=== PATIENT | male | born 1945 | race Caucasian/White ===

== ENCOUNTER 2016-06-13 15:25 | Inpatient (IN) ==
[2016-06-13] MEDS ORDERED: *HR* Morphine 2 MG/ML SYRINGE IVP ONE (15:53)
[2016-06-13 16:21] LABS: Basophils % 0.2 %; Hematocrit 34.4 % (37.5-50.1); Hemoglobin 11.6 g/dL (12.9-16.9); Immature Granulocytes % 0.4 % (0-4); Lymphocytes # 0.6 K/mcL (0.6-4.6); Lymphocytes % 5.3 %; Mean Corpuscular HGB Conc 33.7 g/dL (31.6-35.5); Mean Corpuscular Hemoglobin 29.6 pg (28.0-33.3); Mean Corpuscular Volume 87.8 fL (83.0-100.0); Mean Platelet Volume 11.2 fL (9.4-12.4); Monocytes # 0.5 K/mcL (0.0-1.3); Monocytes % 4.4 %; Neutrophils # 10.9 K/mcL (1.6-8.9); Platelet Count 191 K/mcL (140-400); Red Blood Count 3.92 M/mcL (4.19-5.50); Red Cell Distribution Width 12.9 % (11.5-14.5); Segmented Neutrophils % 89.7 %
[2016-06-13 16:26] LABS: INR 1.1; Prothrombin Time 11.8 Seconds (9.4-12.1)
[2016-06-13 16:35] LABS: Albumin 3.9 g/dL (3.5-5.0); Bilirubin,Direct 0.4 mg/dL (0.0-0.5); Bilirubin,Indirect 0.3 mg/dL (0.0-1.2); Bilirubin,Total 0.7 mg/dL (0.2-1.2); Calcium 9.7 mg/dL (8.6-10.8); Globulin 3.9 g/dL (2.4-3.5); Potassium 3.6 mEq/L (3.5-4.5); Total Protein 7.8 g/dL (6.0-8.3)
[2016-06-13] MEDS: 0.9 % Sodium Chloride 1,000 ML IVC SCH (16:41)
[2016-06-13] MEDS ORDERED: Gabapentin 300 MG CAPSULE PO ONE (17:20)
[2016-06-13] MEDS ORDERED: *HR* Heparin 5,000 UNIT/ML VIAL IVP PRN ×2 (19:45→19:49)
[2016-06-13] MEDS ORDERED: *HR* Heparin 5,000 UNIT/ML VIAL IVP ONE ×2 (19:45→19:49)
[2016-06-13] MEDS ORDERED: Heparin 25,000 UNIT/500 ML D5W 25,000 UNIT/500 ML MLS IVC SCH (19:45)
[2016-06-13] MEDS ORDERED: Nitroglycerin 1 INCH/GM PACKET TP ONE (19:47)
[2016-06-13] MEDS ORDERED: Aspirin 81 MG TAB.CHEW PO ONE (19:52)
--- NOTE | 2016-06-13 20:29 | Emergency Department Note ---
Disposition Clinical Impression: Non-STEMI (non-ST elevated myocardial infarction), Acute kidney injury Disposition: Admitted As Inpatient Condition: Critical [facility] - Forms: Work/School Release, ED Satisfaction Letter Abdominal Pain HPI - General Chief Complaint: ED Abdominal Pain Stated Complaint: abdominal pain Time Seen by Provider: 06/13/16 15:29 Source: patient Nursing Notes Reviewed: Yes Vital Signs Reviewed: Yes - History of Present Illness HPI Narrative: 71-year-old male presents from the [place] with concern for acute cholecystitis. Apparently he has had several days of abdominal discomfort and ultimately went to the [place] complaining of kidney pain. He also had nonspecific chest pain. He does not recall recent cardiac catheterization or stress testing. He had basic labs done at the [place] which showed no evidence of transaminitis, elevated bilirubin or leukocytosis. He was dilated with cardiac biomarkers which are normal. A CT scan of his abdomen was obtained which showed nonspecific gallbladder wall disease and he was sent here for further evaluation. Prior to coming here 1 episode of vomiting, nausea, diaphoresis. Pain Scale: 0 - Related Data Home Medications Medication Instructions Recorded Confirmed Acetaminophen [Tylenol] 325 mg PO QID PRN 06/13/16 06/13/16 Carbidopa/Levodopa [Sinemet 5 each PO HS 06/13/16 06/13/16 10] CloNIDine HCl 0.1 mg PO BID 06/13/16 06/13/16 Escitalopram Oxalate 5 mg PO QAM 06/13/16 06/13/16 Insulin Regular Human [HumuLIN R] 5 unit SQ QDPC 06/13/16 06/13/16 Lidocaine Patch [Lidoderm 5% patch] 1 each TP DAILY 06/13/16 06/13/16 Omeprazole [PriLOSEC] 20 mg PO BIDAC 06/13/16 06/13/16 Propylene Glycol/Peg 400 [Systane 1 drop BOTH EYES QID 06/13/16 06/13/16 0.3-0.4% Eye Drops] Saliva Substitute Combo No.3 1 spray MM BID PRN 06/13/16 06/13/16 [Aquoral] Simvastatin [Zocor] 40 mg PO HS 06/13/16 06/13/16 Terazosin HCl 2 mg PO HS 06/13/16 06/13/16 Trazodone HCl 200 mg PO HS PRN 06/13/16 06/13/16 Allergies Allergy/AdvReac Type Severity Reaction Status Date / Time Amoxicillin Allergy Rash Verified 06/13/16 15:40 gabapentin AdvReac See Verified 06/13/16 15:40 Comments insulin glargine AdvReac See Verified 06/13/16 15:40 [From Lantus] Comments Methadone AdvReac Nausea Verified 06/13/16 15:40 All systems ED: reviewed and negative except as stated. Abdominal Pain PMH - Past Medical History Medical history: Reports: diabetes, hyperlipidemia, renal disease, thyroid disease, other Male Surgical History: Reports: other Psychiatric history: Reports: anxiety, depression, PTSD - Social History Smoking status: Never smoker Alcohol use: Reports: recent Drug use: Reports: none Physical Exam Alert and oriented in no acute distress Meta warm and dry TMs clear bilaterally, extraocular muscle movements are normal, scleral icterus is absent Oropharynx is clear mucous members are moist Cardiovascular exam shows no murmur, rub, gallop Pulmonary exam shows clear lung sounds bilaterally no rales, rhonchi, wheezing Abdominal exam shows a soft and nontender abdomen Extremities are well perfused without clubbing, cyanosis, edema Neurologic exam shows cranial nerves II through XII grossly intact without any focal deficit - General Limitations: no limitations General appearance: alert, in no apparent distress Course Vital Signs Temperature 99.4 F 06/13/16 15:30 Pulse Rate 96 06/13/16 15:30 Respiratory Rate 16 06/13/16 15:30 Blood Pressure 139/90 06/13/16 15:30 O2 Sat by Pulse Oximetry 97 06/13/16 15:30 Temperature 99.4 F 06/13/16 15:30 Pulse Rate 83 06/13/16 19:48 Respiratory Rate 18 06/13/16 19:48 Blood Pressure 161/82 06/13/16 19:48 O2 Sat by Pulse Oximetry 97 06/13/16 19:48 Oxygen Delivery Oxygen Delivery Room Air Abdominal Pain - MDM Narrative Medical decision making narrative: 71-year-old male with concern for acute cholecystitis. Cardiac biomarkers were negative at the sending facility. He does have elevation of his cardiac biomarkers here and concurrently with acute kidney injury. I do suspect this is possible and STEMI given that his cardiac biomarkers were normal 3 hours ago. He is pending a repeat troponin at this time. I did ultrasound his gallbladder which shows no evidence of acute cholecystitis. At this point I would heparinize him, and initiated therapy with aspirin. I do not feel he has a surgical abdomen at this time. I did repeat his EKG twice which shows nonspecific changes. No acute ST segment changes. He was given nitroglycerin, heparin, aspirin, IV fluids for acute kidney injury. Went to admit for diagnosis of an STEMI. - Medical Records Medical records reviewed: Yes I reviewed the patient's medical records. - Lab Data Lab results reviewed: Yes I reviewed the patient's lab results. Result diagrams: 06/13/16 16:11 06/13/16 16:11 Lab Results 06/13/16 06/13/16 06/13/16 Range/Units 16:11 16:11 16:11 WBC 12.1 H (4.3-11.1) K/mcL RBC 3.92 L (4.19-5.50) M/mcL Hgb 11.6 L (12.9-16.9) g/dL Hct 34.4 L (37.5-50.1) % MCV 87.8 (83.0-100.0) fL MCH 29.6 (28.0-33.3) pg MCHC 33.7 (31.6-35.5) g/dL RDW 12.9 (11.5-14.5) % Plt Count 191 (140-400) K/mcL MPV 11.2 (9.4-12.4) fL Immature Gran % 0.4 (0-4) % Seg Neutrophils % 89.7 % Lymphocytes % 5.3 % Monocytes % 4.4 % Eosinophils % 0.0 % Basophils % 0.2 % Neutrophils # 10.9 H (1.6-8.9) K/mcL Lymphocytes # 0.6 (0.6-4.6) K/mcL Monocytes # 0.5 (0.0-1.3) K/mcL Eosinophils # 0.0 (0.0-0.6) K/mcL Basophils # 0.0 (0.0-0.2) K/mcL Immature Plt Fraction 8.0 H (1.1-6.1) % PT 11.8 (9.4-12.1) Seconds INR 1.1 Sodium 135 L (136-145) mEq/L Potassium 3.6 (3.5-4.5) mEq/L Chloride 93 L (98-109) mEq/L Carbon Dioxide 29 (19-29) mEq/L BUN 21 (8-26) mg/dL Creatinine 1.63 H (0.72-1.25) mg/dL Est GFR ( Amer) 51 L (> 60) Est GFR (Non-Af Amer) 42 L (> 60) BUN/Creatinine Ratio 13 (6-26) Glucose 291 H (70-99) mg/dL Calculated Osmolality 294 (280-300) Lactic Acid (0.5-2.2) mmol/L Calcium 9.7 (8.6-10.8) mg/dL Total Bilirubin 0.7 (0.2-1.2) mg/dL Direct Bilirubin 0.4 (0.0-0.5) mg/dL Indirect Bilirubin 0.3 (0.0-1.2) mg/dL AST 13 (5-34) Units/L ALT 14 (0-55) Units/L Alkaline Phosphatase 85 (38-126) Units/L Troponin I (0-0.03) ng/mL Serum Total Protein 7.8 (6.0-8.3) g/dL Albumin 3.9 (3.5-5.0) g/dL Globulin 3.9 H (2.4-3.5) g/dL Albumin/Globulin Ratio 1.0 L (1.1-2.2) Amylase 87 (25-125) Units/L Lipase 41 (8-78) Units/L 06/13/16 06/13/16 Range/Units 16:11 16:11 WBC (4.3-11.1) K/mcL RBC (4.19-5.50) M/mcL Hgb (12.9-16.9) g/dL Hct (37.5-50.1) % MCV (83.0-100.0) fL MCH (28.0-33.3) pg MCHC (31.6-35.5) g/dL RDW (11.5-14.5) % Plt Count (140-400) K/mcL MPV (9.4-12.4) fL Immature Gran % (0-4) % Seg Neutrophils % % Lymphocytes % % Monocytes % % Eosinophils % % Basophils % % Neutrophils # (1.6-8.9) K/mcL Lymphocytes # (0.6-4.6) K/mcL Monocytes # (0.0-1.3) K/mcL Eosinophils # (0.0-0.6) K/mcL Basophils # (0.0-0.2) K/mcL Immature Plt Fraction (1.1-6.1) % PT (9.4-12.1) Seconds INR Sodium (136-145) mEq/L Potassium (3.5-4.5) mEq/L Chloride (98-109) mEq/L Carbon Dioxide (19-29) mEq/L BUN (8-26) mg/dL Creatinine (0.72-1.25) mg/dL Est GFR ( Amer) (> 60) Est GFR (Non-Af Amer) (> 60) BUN/Creatinine Ratio (6-26) Glucose (70-99) mg/dL Calculated Osmolality (280-300) Lactic Acid 1.6 (0.5-2.2) mmol/L Calcium (8.6-10.8) mg/dL Total Bilirubin (0.2-1.2) mg/dL Direct Bilirubin (0.0-0.5) mg/dL Indirect Bilirubin (0.0-1.2) mg/dL AST (5-34) Units/L ALT (0-55) Units/L Alkaline Phosphatase (38-126) Units/L Troponin I 0.05 H* (0-0.03) ng/mL Serum Total Protein (6.0-8.3) g/dL Albumin (3.5-5.0) g/dL Globulin (2.4-3.5) g/dL Albumin/Globulin Ratio (1.1-2.2) Amylase (25-125) Units/L Lipase (8-78) Units/L - EKG Data EKG attestation: Yes I reviewed and interpreted this EKG. EKG results narrative: EKG 1 shows normal sinus rhythm, normal axis, normal intervals, nonspecific ST segment changes EKG to shows normal sinus rhythm, normal intervals, normal axis, nonsignificant ST segment changes. No acute change from EKG one Critical Care Time Critical Care Time: Yes Total Critical Care Time: 31 Attestation: I think greater than 31 minutes caring for this acutely ill patient with a N STEMI. He will be admitted in the care of the hospitalist in critical condition and required intervention with both heparin, nitroglycerin, ongoing resuscitation for acute coronary syndrome
[2016-06-13 20:34] LABS: Hematocrit 31.6 % (37.5-50.1); Hemoglobin 10.9 g/dL (12.9-16.9); Mean Corpuscular HGB Conc 34.5 g/dL (31.6-35.5); Mean Corpuscular Hemoglobin 30.4 pg (28.0-33.3); Mean Platelet Volume 11.4 fL (9.4-12.4); Platelet Count 161 K/mcL (140-400); Red Blood Count 3.59 M/mcL (4.19-5.50)
[2016-06-13 20:36] LABS: Bilirubin,Urine Small (Negative); Blood,Urine Negative (Negative); Clarity,Urine Clear (Clear); Color,Urine Yellow (Yellow); Glucose,Urine (UA) >=1000 mg/dL (Normal); Ketones,Urine Trace mg/dL (Negative); Leukocyte Esterase,Urine Negative (Negative); Nitrite,Urine Negative (Negative); PH,Urine 6.5 pH Units (5.0-8.0); Protein,Urine 100 mg/dL (Neg-Trace); Specific Gravity,Urine 1.022 (1.010-1.025); Urobilinogen,Urine Normal (Normal)
[2016-06-13 20:38] LABS: INR 1.2; Prothrombin Time 12.5 Seconds (9.4-12.1)
[2016-06-13 20:40] LABS: Bacteria,Urine None Seen per hpf (None-Few); Hyaline Casts,Urine None Seen per lpf (None-Few); Squamous Epithelial Cell,Urine Many per lpf (None-Few); WBC,Urine 0-3 per hpf (0-3)
[2016-06-13 20:40] LABS: Activated Partial Thrombo Time 26.9 Seconds (26.0-36.0)
[2016-06-14] MEDS ORDERED: Oxymetazoline Nasal SPRAY BOTTLE NS PRN (00:41)
[2016-06-14] MEDS ORDERED: Acetaminophen 325 MG TABLET PO PRN (01:32)
[2016-06-14] MEDS ORDERED: traZODone 50 MG TABLET PO PRN (01:32)
[2016-06-14] MEDS ORDERED: Saliva Stimulant 100ml BOTTLE MM PRN (01:32)
[2016-06-14] MEDS ORDERED: *HR* Dextrose 50 % in Water (Syg) 50 ML SYRINGE IVP PRN (01:34)
[2016-06-14] MEDS ORDERED: D5% in Water 1,000 ML IV PRN (01:34)
[2016-06-14] MEDS ORDERED: Dextrose Gel 15 GM PO PRN ×2 (01:34)
[2016-06-14] MEDS ORDERED: *HR* Morphine 2 MG/ML SYRINGE IVP PRN (01:35)
[2016-06-14] MEDS ORDERED: Naloxone 0.4 MG/ML INJ IVP PRN (01:35)
--- NOTE | 2016-06-14 02:06 | Internal Med History&Physical ---
Date of Encounter: 06/14/16 Time of Encounter: 00:30 Assessment and Plan (1) Elevated troponin Current visit: Yes Status: Acute Patient has atypical chest pain. EKG is negative. Will consult senior maintenance mechanic for further advice. (2) Gall bladder disease Current visit: Yes Status: Acute Based on the imaging, There is concern for cholecystitis versus cholelithiasis versus polyp. Surgical consultation (3) Pancreatic atrophy Current visit: Yes Status: Acute Radiologist recommends gastroenterology consultation (4) CKD (chronic kidney disease) stage 3, GFR 30-59 ml/min Current visit: Yes Status: Acute Monitor renal function. Avoid nephrotoxic (5) Diabetes mellitus Current visit: Yes Status: Acute Start on sliding scale insulin Qualifiers: Diabetes mellitus type: type 2 Diabetes mellitus complication status: with hyperglycemia Diabetes mellitus nursing home insulin use: unspecified nursing home insulin use status Qualified Code(s): E11.65 - Type 2 diabetes mellitus with hyperglycemia (6) Restless leg syndrome Current visit: Yes Status: Chronic Continue his home medications Internal Medicine - H&P: HPI Chief complaint: Upper abdominal pain Admitted From: Home Plans for Post Hospital Care: Home History of present illness: Mr. Wagoner is a 71 year old male with past medical history significant for diabetes mellitus, see Ca stage III, BPH, restless legs, chronic pain syndrome, pulmonary nodule, vascular dementia, secondary hyperparathyroidism of renal origin, hyperlipidemia, lumbar spinal stenosis. He is a patient of [facility]. He apparently presented to with upper abdominal pain / chest pain. CT scan of the abdomen there showed cholelithiasis with mild gallbladder wall thickening and some stranding surrounding the gallbladder, consistent with cholecystitis. His troponin there was negative. He was transferred to [facility] for further evaluation. Troponin here is 0.04 in the ER. Ultrasound scan of the gallbladder done in this hospital showed filling defect in the gallbladder fundus, which does not have typical characteristics of mobile stone. A polyp mass should be considered. On my evaluation, patient was very uncooperative and was initially did not want to see me. However after discussing with him further, he was able to give some details. Reports pain in the right and left upper quadrant region. Vague pain with no radiation. Denies significant chest pain. No nausea or vomiting. No fever or chills. CT scan of the abdomen and pelvis done in [facility] reported: Cholelithiasis with mild gallbladder wall thickening and some stranding surrounding the gallbladder, consistent with cholecystitis. Diffuse atrophy of the pancreatic body at the dilatation of the pancreatic duct. This could be due to distal radiolucent stone, stricture or tumor. GI consultation and ERCP is recommended. Colonic diverticulosis. Prostatitic enlargement and heterogenicity. Bilateral Inguinal hernias. Left-sided L5 spondylolisthesis. CXR reported small left pleural fluid collection. X-ray of lumbar spine reported multilevel degenerative disc disease and facet joint arthritis . Past Med Surg Social Fam HX - Past Medical History Medical history: diabetes, hyperlipidemia, renal disease, thyroid disease, other Psychiatric history: anxiety, depression, PTSD - Social History Smoking Status: Never smoker Smokeless Tobacco Status: No Alcohol use: recent Drug use: none Internal Medicine - H&P: Meds Acetaminophen [Tylenol] 325 mg PO QID PRN 06/13/16 [History] Carbidopa/Levodopa 10/100 [Sinemet 10/100] 5 each PO HS 06/13/16 [History] CloNIDine HCl 0.1 mg PO BID 06/13/16 [History] Escitalopram Oxalate 5 mg PO QAM 06/13/16 [History] Insulin Regular Human [HumuLIN R] 5 unit SQ QDPC 06/13/16 [History] Lidocaine Patch [Lidoderm 5% patch] 1 each TP DAILY 06/13/16 [History] Omeprazole [PriLOSEC] 20 mg PO BIDAC 06/13/16 [History] Propylene Glycol/Peg 400 [Systane 0.3-0.4% Eye Drops] 1 drop BOTH EYES QID 06/13 [History] Saliva Substitute Combo No.3 [Aquoral] 1 spray MM BID PRN 06/13/16 [History] Simvastatin [Zocor] 40 mg PO HS 06/13/16 [History] Terazosin HCl 2 mg PO HS 06/13/16 [History] Trazodone HCl 200 mg PO HS PRN 06/13/16 [History] Allergies Amoxicillin Allergy (Verified 06/13/16 15:40) Rash gabapentin Adverse Reaction (Verified 06/13/16 15:40) See Comments dementia insulin glargine [From Lantus] Adverse Reaction (Verified 06/13/16 15:40) See Comments joint pain Methadone Adverse Reaction (Verified 06/13/16 15:40) Nausea All Systems PM: A 10-system review of systems was performed and is negative for pertinent findings except as documented above in the HPI. - Constitutional Vitals: Temp Pulse Resp BP Pulse Ox 98.5 F 79 18 154/58 96 06/14/16 01:01 06/14/16 01:01 06/14/16 01:01 06/14/16 01:01 06/14/16 01:01 Exam: General: Not in acute distress at the time of my evaluation HEENT: Oral mucosa is moist. No conjunctival palor or scleral icterus Neck: No obvious neck swellings Lungs: Clear to auscultation Cardiac: Regular rate and rhythm. No significant murmurs Abdomen: Soft, non tender. Bowel sounds present Genitourinary: No arredondo catheter Neurological: Alert and oriented. No gross localizing deficits Psych: No delusions or hallucinations Extremities: Bilateral leg edema noted Skin: No generalized rash Internal Med - H&P Results - Labs CBC & Chem 7: 06/13/16 20:12 06/13/16 16:11 - EKG Data EKG comments: Sinus rhythm with no acute ST-T changes 06/14/16 05:14 - Impressions ITS Impressions Gallbladder Ultrasound 06/13/16 15:52 IMPRESSION: 1. Filling defect in the gallbladder fundus which does not have the typical characteristics of movable stone. A polyp or mass should be considered. 2. No evidence of biliary disease. No evidence of liver disease. Incidental renal cyst. D/ / 06/13/2016 19:45:59 Farrah Summers MD / [email or web address] Interpreting Provider: Farrah Summers MD [facility] reported: Cholelithiasis with mild gallbladder wall thickening and some stranding surrounding the gallbladder, consistent with cholecystitis. Diffuse atrophy of the pancreatic body at the dilatation of the pancreatic duct. This could be due to distal radiolucent stone, stricture or tumor. GI consultation and ERCP is recommended. Colonic diverticulosis. Prostatitic enlargement and heterogenicity. Bilateral Inguinal hernias. Left-sided L5 spondylolisthesis. CXR reported small left pleural fluid collection. X-ray of lumbar spine reported multilevel degenerative disc disease and facet joint arthritis
[2016-06-14 02:20] LABS: Chol/HDL Ratio 2.4 (0-4.9)
[2016-06-14 06:03] LABS: Calcium 9.6 mg/dL (8.6-10.8); Potassium 3.5 mEq/L (3.5-4.5)
[2016-06-14] MEDS: 0.9 % Sodium Chloride 1,000 ML IVC SCH ×2 (07:42→12:25)
[2016-06-14] MEDS: Insulin LISPRO 300 UNITS/3 ML VIAL SQ SCH ×4 (07:43→18:17)
[2016-06-14] MEDS: cloNIDine HCl 0.1 MG TABLET PO SCH ×2 (08:50→21:10)
[2016-06-14] MEDS: SYSTANE OP SCH ×3 (08:56→17:25)
--- NOTE | 2016-06-14 09:15 | Cardiology Consult Note ---
<Santy Hdez G - Last Filed: 06/14/16 09:40> Date of Encounter: 06/14/16 Assessment and Plan Discussion w patient/family: The assessment and plan as outlined above was discussed with the patient and/or family members who expressed understanding and agreement. All questions were answered. Thank you for involving us in the care of your patient. Please call with any questions. History of Present Illness History of present illness: Mr. Wagoner is a 71 year old male Medications and Allergies Acetaminophen [Tylenol] 325 mg PO QID PRN 06/13/16 [History] Carbidopa/Levodopa 10 [Sinemet 10] 5 each PO HS 06/13/16 [History] CloNIDine HCl 0.1 mg PO BID 06/13/16 [History] Escitalopram Oxalate 5 mg PO QAM 06/13/16 [History] Insulin Regular Human [HumuLIN R] 5 unit SQ QDPC 06/13/16 [History] Lidocaine Patch [Lidoderm 5% patch] 1 each TP DAILY 06/13/16 [History] Omeprazole [PriLOSEC] 20 mg PO BIDAC 06/13/16 [History] Propylene Glycol/Peg 400 [Systane 0.3-0.4% Eye Drops] 1 drop BOTH EYES QID 06/13 [History] Saliva Substitute Combo No.3 [Aquoral] 1 spray MM BID PRN 06/13/16 [History] Simvastatin [Zocor] 40 mg PO HS 06/13/16 [History] Terazosin HCl 2 mg PO HS 06/13/16 [History] Trazodone HCl 200 mg PO HS PRN 06/13/16 [History] Allergies Amoxicillin Allergy (Verified 06/13/16 15:40) Rash gabapentin Adverse Reaction (Verified 06/13/16 15:40) See Comments dementia insulin glargine [From Lantus] Adverse Reaction (Verified 06/13/16 15:40) See Comments joint pain Methadone Adverse Reaction (Verified 06/13/16 15:40) Nausea All Systems Review: A 10-system review of systems was performed and is negative for pertinent findings except as documented above in the HPI. Physical Examination Vital Signs, Last 4 Hours Temp Pulse Resp BP Pulse Ox 06/14/16 07:16 98.2 F 88 18 186/78 94 L Results 06/13/16 20:12 06/14/16 01:43 Lab Results 06/14/16 06/14/16 06/14/16 01:43 01:43 07:32 APTT 54.7 H D Sodium 135 L Potassium 3.5 Chloride 94 L Carbon Dioxide 26 BUN 23 Creatinine 1.65 H Glucose 308 H Calcium 9.6 Troponin I 0.06 H* 06/14/16 07:54 APTT Sodium Potassium Chloride Carbon Dioxide BUN Creatinine Glucose Calcium Troponin I 0.06 H* Consult Discharge Plan - Plan [facility]errals: [facility] [Primary Care Provider[facility] - - Attending Attestation For this encounter, I have reviewed the BALLOON TESTER or PA documentation, treatment plan, and medical decision making; and I have had face to face time with this patient. Pt here with possible cholecystitis denies any cp , sob, pnd no prior cardiac history VSS JVD: 6 cm Chest : clear CVS RRR , no murmur gallops , rubs EKG: no acute changes reviewed by me Trop : mildly elevated Plan; will do stress test prior to clearing for surgery repeat EKG in am Thanks <Naresh Faye - Last Filed: 06/14/16 09:47> Date of Encounter: 06/14/16 Time of Encounter: 09:00 Assessment and Plan (1) Elevated troponin Current Visit: Yes Status: Acute Mild troponin elevation, 0.05, 0.04, 0.06. A dynamic and not diagnostic of ACS. TTE 2013- EF 55-60%, Mild diastolic dysfunction. No significant valvular disease. EKG- NSR with no ST changes, HR 82 bpm. Pt may require surgical intervention for acute cholecystitis. There is report of him having chest pain. He denies chest pain to me at this time. Recommend lexiscan stress test for further evaluation. (2) Hypertension Current Visit: Yes Status: Acute Uncontrolled hypertension. Add norvasc. Qualifiers: Hypertension type: essential hypertension Qualified Code(s): I10 - Essential (primary) hypertension (3) Gall bladder disease Current Visit: Yes Status: Acute Surgery consulted. (4) Tachycardia Current Visit: Yes Status: Acute Pt seen to have tachy-arrhythmia on telemetry with HR up to [address] Hdez, sinus tachycardia. Continue to monitor telemetry. Discussion w patient/family: The assessment and plan as outlined above was discussed with the patient and/or family members who expressed understanding and agreement. All questions were answered. Thank you for involving us in the care of your patient. Please call with any questions. History of Present Illness Consult date: 06/14/16 Consult reason: CHF Chief complaint: SOB, orthopnea, fall two days ago History of present illness: Mr. Wagoner is a 71 year old male who presented to the [place] with abdominal discomfort and vomiting on monday. 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 He denies recurrent nausea and vomiting. Continues to have abdominal tenderness. He denies chest pain or SOB. A CT scan at the [facility] revealed cholelithiasis and possible cholecystitis. He was sent to [facility] for urgent surgery evaluation. Cardiology consulted for elevated troponin. Past medical history includes hypertension, HLD, DM type II, Carotid artery disease, and vascular dementia. He denies chest pain or SOB. Denies palpitations. Denies orthopnea, PND. or edema. Past Med Surg Social Fam HX - Past Medical History Medical history: diabetes, hyperlipidemia, renal disease, thyroid disease, other Psychiatric history: anxiety, depression, PTSD - Social History Smoking Status: Never smoker Smokeless Tobacco Status: No Alcohol use: recent Drug use: none All Systems Review: A 10-system review of systems was performed and is negative for pertinent findings except as documented above in the HPI. Physical Examination Vital Signs, Last 4 Hours Temp Pulse Resp BP Pulse Ox 06/14/16 07:16 98.2 F 88 18 186/78 94 L General: Conversant, No Apparent Distress HEENT: Atraumatic, Normocephaly, Mucus Membranes Moist Neck: No JVD, Normal carotid pulses Cardiac: Reg Rate and Rhythm, Normal S1 and S2, No Murmur Lungs: Normal Breath Sounds, No Wheeze, Rales, Rhonchi Neuro: Alert and responsive, No focal deficits noted Abdomen: Soft, Other (RUQ with reproducible pain.) Skin: No rashes noted on visualized skin Musculoskeletal: No Chest Wall Tenderness Extremities: No Clubbing, No Cyanosis, No Edema, Normal Pulses Results 06/13/16 20:12 06/14/16 01:43 Lab Results 06/14/16 06/14/16 06/14/16 01:43 01:43 07:32 APTT 54.7 H D Sodium 135 L Potassium 3.5 Chloride 94 L Carbon Dioxide 26 BUN 23 Creatinine 1.65 H Glucose 308 H Calcium 9.6 Troponin I 0.06 H* 06/14/16 07:54 APTT Sodium Potassium Chloride Carbon Dioxide BUN Creatinine Glucose Calcium Troponin I 0.06 H* Gallbladder Ultrasound 06/13/16 15:52 IMPRESSION: 1. Filling defect in the gallbladder fundus which does not have the typical characteristics of movable stone. A polyp or mass should be considered. 2. No evidence of biliary disease. No evidence of liver disease. Incidental renal cyst. D/ / 06/13/2016 19:45:59 Farrah Summers MD / [email or web address] Interpreting Provider: Farrah Summers MD - small pleural effusion. - Imaging and Cardiology Echo: report reviewed (2013-EF 55-60%, mild diastolic dysfunction, no significant valvular disease.) - EKG Interpretation EKG results cardiology: personally reviewed (SR, no acute ST changes, HR 82 bpm. ), other (Telemetry review shows NSR to ST. Avg HR 93 bpm.)
--- NOTE | 2016-06-14 12:01 | Gastroenterology Consult Note ---
<Anil Laureano - Last Filed: 06/14/16 11:58> Date of Encounter: 06/14/16 Time of Encounter: 11:10 - Assessment and plan (1) Pancreatic atrophy Current Visit: Yes Status: Acute Assessment and plan: CT A/P showed diffuse atrophy of the pancreatic body with dilation of the pancreatic duct to 8 mm, could be due to radiolucent stone, stricture, or tumor , ERCP recommended by radiologist. RUQ US showed a filling defect in gallbladder suspicious for polyp vs mass. Lipase 41 and amylase 87. Possible EUS /ERCP, Dr. Martinez to review images. (2) Elevated troponin Current Visit: Yes Status: Acute Assessment and plan: Management per Cardiology. - Time Spent With Patient Total time spent is greater than 50% in coordination of care (as documented) at patient's floor/unit and/or counseling patient: GI History of Present Illness - Data of Consult Patient: new to practice Consult date: 06/14/16 Requesting Physician: Mireya Story MD - Consult Narrative Reason for consult: Pancreatic atrophy History of present illness: Mr. Wagoner is a 71 year old male with PMHx of DM, CKD, BPH, RLS, chronic pain syndrome, HLD who presented with upper abdominal pain to the [place]. CT A/P showed diffuse atrophy of the pancreatic body with dilation of the pancreatic duct to 8 mm, could be due to radiolucent stone, stricture, or tumor, ERCP recommended by radiologist. RUQ US showed a filling defect in gallbladder suspicious for polyp vs mass. Procedures: None NSAIDs: None Anticoagulation: None Past Med Surg Social Fam HX - Past Medical History Medical history: diabetes, hyperlipidemia, renal disease, thyroid disease, other Psychiatric history: anxiety, depression, PTSD - Social History Smoking Status: Never smoker Smokeless Tobacco Status: No Alcohol use: recent Drug use: none - Gastrointestinal Gastrointestinal: Present: as per HPI - Constitutional Constitutional: as per HPI - EENT Eyes: as per HPI Ears: Present: as per HPI Nose, mouth and throat: Present: as per HPI - Cardiovascular Cardiovascular ROS: Present: as per HPI - Respiratory Respiratory IM: Present: as per HPI - Genitourinary Genitourinary: Absent: change in color, Urinary frequency - Neurological ROS Neurological GI: Present: as per HPI - Hematologic/Lymphatic Hematologic/Lymphatic pediatric: Present: as per HPI - Musculoskeletal Musculoskeletal ROS GI: Present: as per HPI - Integumentary Integumentary GI: Present: as per HPI - Psychiatric ROS Psychiatric GI: Present: as per HPI - Endocrine Endocrine IM: Present: as per HPI - Constitutional Vitals: Temp Pulse Resp BP Pulse Ox 98.2 F 89 18 104/62 97 06/14/16 07:16 06/14/16 11:01 06/14/16 11:01 06/14/16 11:01 06/14/16 11:01 General appearance: Present: cooperative, A&O X 3, no acute distress, answers questions appropriately - Head Head exam: Present: atraumatic, normocephalic - Eye Eye exam: Present: normal appearance, sclera anicteric - ENT ENT exam: Present: mucous membranes moist - Neck Neck exam general surgery: Present: normal inspection, trachea midline - Respiratory Respiratory exam: Present: CTAB. Absent: rales, rhonchi - Cardiovascular Cardiovascular exam: Present: RRR, +S1, +S2 - GI/Abdominal GI/Abdominal exam: Present: soft, no peritoneal signs. Absent: distended, firm , guarding, tenderness - Rectal Rectal exam: Present: deferred - Extremities Exam Extremities exam: Present: warm - Neurological Exam Neurological exam: Present: no focal deficits - Psychiatric Psychiatric exam: Present: normal affect, normal mood - Skin Skin exam: Present: dry, intact, normal color, warm Results - Labs CBC & Chem 7: 06/13/16 20:12 06/14/16 01:43 Labs: Last Result Calcium 9.6 mg/dL (8.6-10.8) 06/14/16 01:43 Troponin I 0.06 ng/mL (0-0.03) H* 06/14/16 07:54 Triglycerides 112 mg/dL (< 150) 06/14/16 01:43 Entire Visit Hgb 10.9 g/dL (12.9-16.9) L 06/13/16 20:12 Hct 31.6 % (37.5-50.1) L 06/13/16 20:12 PT 12.5 Seconds (9.4-12.1) H 06/13/16 20:12 Total Bilirubin 0.7 mg/dL (0.2-1.2) 06/13/16 16:11 AST 13 Units/L (5-34) 06/13/16 16:11 ALT 14 Units/L (0-55) 06/13/16 16:11 Amylase 87 Units/L (25-125) 06/13/16 16:11 Lipase 41 Units/L (8-78) 06/13/16 16:11 - ABG ABG results: PT/INR, D-dimer PT 12.5 Seconds (9.4-12.1) H 06/13/16 20:12 Consult Discharge Plan - Plan [facility]errals: [facility] Care Provider[facility] - <Jules Martinez - Last Filed: 06/14/16 17:27> Date of Encounter: 06/14/16 Time of Encounter: 14:00 - Time Spent With Patient Total time spent is greater than 50% in coordination of care (as documented) at patient's floor/unit and/or counseling patient: GI History of Present Illness - Data of Consult Requesting Physician: Mireya Story MD - Consult Narrative History of present illness: Mr. Wagoner is a 71 year old male - Constitutional Vitals: Temp Pulse Resp BP Pulse Ox 98.2 F 89 18 104/62 97 06/14/16 07:16 06/14/16 11:01 06/14/16 11:01 06/14/16 11:01 06/14/16 13:00 Results - Labs CBC & Chem 7: 06/13/16 20:12 06/14/16 01:43 Labs: Last Result Calcium 9.6 mg/dL (8.6-10.8) 06/14/16 01:43 Troponin I 0.06 ng/mL (0-0.03) H* 06/14/16 07:54 Triglycerides 112 mg/dL (< 150) 06/14/16 01:43 Entire Visit Hgb 10.9 g/dL (12.9-16.9) L 06/13/16 20:12 Hct 31.6 % (37.5-50.1) L 06/13/16 20:12 PT 12.5 Seconds (9.4-12.1) H 06/13/16 20:12 Total Bilirubin 0.7 mg/dL (0.2-1.2) 06/13/16 16:11 AST 13 Units/L (5-34) 06/13/16 16:11 ALT 14 Units/L (0-55) 06/13/16 16:11 Amylase 87 Units/L (25-125) 06/13/16 16:11 Lipase 41 Units/L (8-78) 06/13/16 16:11 - ABG ABG results: PT/INR, D-dimer PT 12.5 Seconds (9.4-12.1) H 06/13/16 20:12 - Attending Attestation I examined this patient and my medical decision-making was reviewed with the CAREER SERVICES REPRESENTATIVE/PA/Advanced Practice Nurse/Resident Physician. I agree with the documented findings, disposition and treatment plan as described except to the extent set forth below. Discussed in detail with the patient about the CAT scan finding. Patient will need an EUS of the pancreas and gallbladder as an outpatient for further evaluation.
--- NOTE | 2016-06-14 14:22 | Event Note ---
Date of Encounter: 06/14/16 Time of Encounter: 12:15 Patient denies any new complaints at this time. Awaiting evaluation by GI. No chest pain. Will stop heparin drip. Troponin 0.06. Plan for stress test tomorrow.
[2016-06-14] MEDS ORDERED: Insulin LISPRO 300 UNITS/3 ML VIAL SQ SCH (21:00)
--- NOTE | 2016-06-14 21:11 | Electrocardiograph Report ---
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
[2016-06-14] MEDS ORDERED: *HR* OxyCODONE Immed Rel 5 MG TABLET PO STA (21:48)
[2016-06-14] MEDS ORDERED: Insulin DETEMIR 100 UNIT/ML X5UNITS SQ SCH (23:00)
[2016-06-15] MEDS: SYSTANE OP SCH ×2 (05:18→10:00)
[2016-06-15] MEDS: 0.9 % Sodium Chloride 1,000 ML IVC SCH (05:23)
[2016-06-15] MEDS ORDERED: Regadenoson 0.4 MG/5 ML SYRINGE IVP ONE (07:24)
[2016-06-15] MEDS: Insulin LISPRO 300 UNITS/3 ML VIAL SQ SCH ×2 (07:29→11:37)
[2016-06-15] MEDS: cloNIDine HCl 0.1 MG TABLET PO SCH (10:00)
[2016-06-15 11:19] VITALS: BP 119/65
[2016-06-15] MEDS ORDERED: *HR* OxyCODONE/APAP 5/325 TABLET PO PRN (11:45)
--- NOTE | 2016-06-15 11:52 | Discharge Summary ---
Date of Encounter: 06/15/16 Time of Encounter: 11:50 - Discharge Diagnosis (1) Elevated troponin Priority: Primary Status: Acute (2) CKD (chronic kidney disease) stage 3, GFR 30-59 ml/min Priority: Secondary Status: Acute (3) Diabetes mellitus Priority: Secondary Status: Acute Qualifiers: Diabetes mellitus type: type 2 Diabetes mellitus complication status: with hyperglycemia Diabetes mellitus usp insulin use: unspecified usp insulin use status Qualified Code(s): E11.65 - Type 2 diabetes mellitus with hyperglycemia (4) Gall bladder disease Priority: Secondary Status: Acute (5) Restless leg syndrome Priority: Secondary Status: Chronic - Discharge Medications Home Medications: Acetaminophen [Tylenol] 325 mg PO QID PRN 06/13/16 [History] Carbidopa/Levodopa [Sinemet ] 5 each PO HS 06/13/16 [History] CloNIDine HCl 0.1 mg PO BID 06/13/16 [History] Escitalopram Oxalate 5 mg PO QAM 06/13/16 [History] Insulin Regular Human [Humulin R] 5 unit SQ QDPC 06/13/16 [History] Lidocaine Patch [Lidoderm 5% patch] 1 each TP DAILY 06/13/16 [History] Omeprazole [PriLOSEC] 20 mg PO BIDAC 06/13/16 [History] Propylene Glycol/Peg 400 [Systane 0.3-0.4% Eye Drops] 1 drop BOTH EYES QID 06/13 [History] Saliva Substitute Combo No.3 [Aquoral] 1 spray MM BID PRN 06/13/16 [History] Simvastatin [Zocor] 40 mg PO HS 06/13/16 [History] Terazosin HCl 2 mg PO HS 06/13/16 [History] Trazodone HCl 200 mg PO HS PRN 06/13/16 [History] Allergies/Adverse Reactions: Allergies Amoxicillin Allergy (Verified 06/13/16 15:40) Rash gabapentin Adverse Reaction (Verified 06/13/16 15:40) See Comments dementia insulin glargine [From Lantus] Adverse Reaction (Verified 06/13/16 15:40) See Comments joint pain Methadone Adverse Reaction (Verified 06/13/16 15:40) Nausea Procedures/tests Complete & Pending: Procedures Performed prior 72 hours Category Date Time Status NM pamela perf SPECT multi [NM] Routine Exams 06/15/16 07:00 Taken Date of admission: 06/13/16 21:02 [facility] care physician[facility] Consults: 06/14/16 00:08 Consult to Nutrition [CONS] Routine Comment: Consulting Provider: NUTRITION Reason for Dietary Consult: Diet Education 06/14/16 01:40 Consult to Cardiology [CONS] Routine Comment: Consulting Provider: Card[facility] Reason for Consult: Elevated troponin Call Completed: No 06/14/16 05:20 Consult to Gastroenterology [CONS] Routine Consulting Provider: [facility] [place] Reason for Consult: Pancreatic atrophy Call Completed: No Consult to Surgery [CONS] Routine Consulting Provider: [facility] Reason for Consult: Cholecystitis versu polyp in GB Call Completed: No Discharging clinician: Mireya Story Anticipated date of discharge: 06/15/16 - Patient Status Disposition: Home, Self-Care Condition: Good Functional capacity at discharge: independent ambulation Overall status at discharge: patient is progressing back to baseline - Ambulatory Orders Ambulatory Orders: SP pharm nuclear stress Time Frame: 1 Week, Facility: [facility], Location: Cardiopulmonary Svc NM pamela perf SPECT multi [NM] Time Frame: 1 Week, Facility: [facility], Location: Cardiopulmonary Svc - Discharge Instructions Instructions: Myocardial Infarction (DC), Diabetes Mellitus Type 2 in Adults ( DC) Follow Up With: [place],PCP [Primary Care Provider] - 06/30/16 10:45 am (please follow up as schedule..) Artem Hemphill DO [Partnered Physician] - 06/30/16 12:00 pm (Please follow up as schedule for Dr. More at [facility]) - Diet and Activity Activity: resume usual activities as tolerated Diet: diabetic diet, low fat, low cholesterol, low salt diet Hospital course: Mr. Wagoner is a 71 year old male with a history of essential hypertension, chronic kidney disease stage III, diabetes mellitus type 2, specific syndrome who was sent here for evaluation with a [facility] after he was found to have cholelithiasis with mild gallbladder stranding suggestive of cholecystitis. Underwent ultrasound of the abdomen here which showed a filling defect in the gallbladder fundus. Also his troponins were slightly elevated 0.4. As such she was monitored with telemetry and his troponins were trended. His troponins he did 0.06. The patient has been having intermittent lateral subcostal chest pain bilaterally. Cardiology was consulted. They recommended cardiac stress test. The patient was supposed to undergo stress test today. However, his blood pressure decreased during the study to the 80s systolic and the stress test was canceled. The patient was seen by gastroenterology and recommended outpatient endoscopic ultrasound and possible ERCP. The patient is to be pertinent to do further cardiac stress test. Since he is not scheduled for any surgery at this time, cardiology recommends that this can be done as outpatient. As such, we will discharge the patient and will arrange for the stress test to be completed as an outpatient. - Time Spent with Patient Total time spent providing and/or coordinating discharge services: Less than 30 minutes (20 min) - Constitutional Vitals: Temp Pulse Resp BP Pulse Ox 98.6 F 76 16 119/65 97 06/15/16 11:15 06/15/16 11:15 06/15/16 11:15 06/15/16 11:15 06/15/16 11:15 General appearance: Present: cooperative, A&O X 3, no acute distress, answers questions appropriately - Respiratory Respiratory exam: Present: CTAB. Absent: accessory muscle use, rales, rhonchi, wheezes - Cardiovascular Cardiovascular exam: Present: RRR, +S1, +S2. Absent: diastolic murmur, gallop, rubs, systolic murmur - GI/Abdominal GI/Abdominal exam: Present: normal bowel sounds, soft, no peritoneal signs. Absent: distended, tenderness - Extremities Exam Extremities exam: Present: warm, radial pulses palpable and symetrical. Absent : calf tenderness, cyanotic, pedal edema - Attending Attestation This document has been at least partially created by [employer] recognition technology by Dr. Story. Errors in grammar, wording or other phrases may exist. If errors are found after the documentation is signed, they will be addressed individually in the addendum section of this document when appropriate.
--- NOTE | 2016-06-15 12:02 | Cardiology Progress Note ---
Date of Encounter: 06/15/16 Time of Encounter: 11:58 Assessment and Plan (1) Elevated troponin Current Visit: Yes Status: Acute Mild troponin elevation, 0.05, 0.04, 0.06. A dynamic and not diagnostic of ACS. TTE 2013- EF 55-60%, Mild diastolic dysfunction. No significant valvular disease. EKG- NSR with no ST changes, HR 82 bpm. Recommend lexiscan stress test for further evaluation for pre-op eval. Stress test was cancelled d/t hypotension. B/p improved. Pt is not having surgery at this time. He is also not having chest pain. Ok to complete stress test in the out pt setting. Stress lab will set up time to complete. Out pt follow-up with cardiology in 2 weeks. I will set up appointment. Cardiology signing off. Call with questions. (2) Hypertension Current Visit: Yes Status: Acute Norvasc added yesterday for hypertension. He is now hypotensive. Hold norvasc d/ t pt not tolerating. Continue to monitor. Qualifiers: Hypertension type: essential hypertension Qualified Code(s): I10 - Essential (primary) hypertension (3) Gall bladder disease Current Visit: Yes Status: Acute Pt to continue evaluation in out pt setting. Discussion w patient/family: The assessment and plan as outlined above was discussed with the patient and/or family members who expressed understanding and agreement. All questions were answered. Thank you for involving us in the care of your patient. Please call with any questions. Subjective Principal diagnosis: abdominal pain/ nausea, mild troponin Interval history: Pt denies recurrent nausea or vomiting. Denies abdominal pain. Denies chest pain. Objective Vital Signs, Last 4 Hours Temp Pulse Resp BP Pulse Ox 06/15/16 11:15 98.6 F 76 16 119/65 97 06/15/16 09:48 97/50 General: Conversant, No Apparent Distress, Other (poor historian) HEENT: Atraumatic, Normocephaly, Mucus Membranes Moist Neck: No JVD, Normal carotid pulses Cardiac: Reg Rate and Rhythm, Normal S1 and S2, No Murmur Lungs: Normal Breath Sounds, No Wheeze, Rales, Rhonchi Neuro: Alert and responsive, No focal deficits noted Abdomen: Soft, Non-Tender Skin: No rashes noted on visualized skin Musculoskeletal: No Chest Wall Tenderness Extremities: No Clubbing, No Cyanosis, No Edema, Normal Pulses Results 06/13/16 20:12 06/14/16 01:43 Lab Results 06/14/16 12:50 APTT 46.5 H - Imaging and Cardiology Stress Test: pending - EKG Interpretation EKG results cardiology: other (NSR on telemetry) Consult Discharge Plan - Plan Instructions: Diabetes Mellitus Type 2 in Adults (DC) [facility]errals: [facility] [Primary Care Provider[facility] - 06/30/16 10:45 am (please follow up as schedule..)
== END 2016-06-15 13:05 | disposition home or self-care (01) | DRG 948 ==
LOC: EMEROO 15:25 → 2ANU 21:02 → SUATTDRO 21:02 → 2ANU 21:49
PROVIDERS: ADMIT Internal Medicine; ATTEND Internal Medicine

== ENCOUNTER 2018-04-25 02:42 | Inpatient (IN) ==
--- NOTE | 2018-04-25 02:46 | Emergency Department Note ---
Disposition Clinical Impression: Liver abscess, Elevated lactic acid level Sepsis Qualifiers: Sepsis type: sepsis due to unspecified organism Qualified Code(s): A41.9 - Sepsis, unspecified organism Disposition: Admitted As Inpatient Condition: Fair General Adult HPI - General Stated complaint: weakness Time Seen by Provider: 04/25/18 02:45 Nursing Notes Reviewed: Yes Vital Signs Reviewed: Yes - History of Present Illness HPI Narrative: 73-year-old male presents emergency department with concern for hitting his head. Patient leaned forward and struck his head on the counter at home. Patient was brought in by EMS. reports that he has had elevated glucose. States that this been in the 500s. Reports that he has recently been on antimicrobials, Omnicef and Flagyl for possible liver abscesses. Patient is supposed to have them drained tomorrow. - Related Data Home Medications Medication Instructions Recorded Confirmed Insulin Regular Human [Humulin R] 3 unit SQ QDPC 06/13/16 04/25/18 Terazosin HCl 2 mg PO HS 06/13/16 04/25/18 cloNIDine HCl [CloNIDine HCl] 0.1 mg PO BID 06/13/16 04/25/18 Aspirin 81 mg PO DAILY 04/04/18 04/25/18 Cholecalciferol (Vitamin D3) 2,000 unit PO DAILY 04/04/18 04/25/18 [Vitamin D3] Diclofenac Sodium 2 g TP DAILY PRN 04/04/18 04/25/18 Escitalopram [Lexapro] 20 mg PO DAILY 04/04/18 04/25/18 Hydrocodone/Acetaminophen [Alburtis 1 tab PO Q6H PRN 04/04/18 04/25/18 10-325 Tablet] Insulin DETEMIR [Levemir] 25 unit SQ QPM 04/04/18 04/25/18 Lisinopril-HCTZ 10-12.5 [Prinzide 1 tab PO DAILY 04/04/18 04/25/18 10-12.5] Melatonin [Melatin] 9 mg PO HS 04/04/18 04/25/18 Memantine HCl 10 mg PO BID 04/04/18 04/25/18 Multivitamin [One Daily 1 tab PO DAILY 04/04/18 04/25/18 Multivitamin] Omeprazole [PriLOSEC] 20 mg PO DAILY 04/04/18 04/25/18 Propylene Glycol/Peg 400/Pf 1 drop BOTH EYES TID 04/04/18 04/25/18 [Systane Ultra 0.4-0.3% Eye Drp] Ropinirole HCl [Requip] 1.5 mg PO HS 04/04/18 04/25/18 Simvastatin 40 mg PO QPM 04/04/18 04/25/18 Trazodone HCl 400 mg PO HS PRN 04/04/18 04/25/18 Cefdinir [Omnicef] 300 mg PO BID 04/25/18 04/25/18 metroNIDAZOLE [Metronidazole] 500 mg PO TID 04/25/18 04/25/18 Allergies Allergy/AdvReac Type Severity Reaction Status Date / Time Amoxicillin Allergy Rash Verified 04/04/18 10:54 Methadone Allergy Nausea Verified 04/04/18 10:54 gabapentin AdvReac See Verified 04/04/18 10:54 Comments insulin glargine AdvReac See Verified 04/04/18 10:54 [From Lantus] Comments levofloxacin [From Levaquin] AdvReac See Verified 04/04/18 10:54 Comments pregabalin [From Lyrica] AdvReac See Verified 04/04/18 10:54 Comments All systems ED: reviewed and negative except as stated. Review of Systems: As Per HPI Constitutional: Reports: fever Cardiovascular: Denies: chest pain Respiratory: Denies: cough, dyspnea Gastrointestinal: Reports: abdominal pain. Denies: nausea, vomiting Genitourinary: Denies: urgency, dysuria, frequency Past Medical History - Past Medical History Medical history: Reports: diabetes, hyperlipidemia, renal disease, thyroid disease, other Psychiatric history: Reports: anxiety, depression, PTSD - Social History Smoking Status: Never smoker Smokeless Tobacco Status: No Alcohol use: Reports: recent Drug use: Reports: none Physical Exam - General Limitations: no limitations, altered mental status General appearance: alert - Head Head exam: other (Patient has right frontal hematoma) - Eye Eye exam: Present: EOMI - ENT ENT exam: mucous membranes dry - Neck Neck exam: Present: trachea midline - Chest Chest inspection: Present: symmetric chest wall rise - Respiratory Respiratory exam: Present: normal lung sounds bilaterally. Absent: respiratory distress, accessory muscle use - Cardiovascular Cardiovascular exam: Present: normal rhythm, tachycardia, normal heart sounds - Abdominal Exam Abdominal exam: Present: soft, tenderness Abdominal tenderness: Present: diffuse, mild - Extremities Exam Extremities exam: Present: normal capillary refill - Back Exam Back exam: Present: full ROM - Neurological Exam Neurological exam: Present: alert, oriented X3 - Psychiatric Psychiatric exam: Present: agitated - Skin Skin exam: Present: warm, dry, intact, normal color. Absent: rash Course Vital Signs Temperature 101.2 F H 04/25/18 02:44 Pulse Rate 105 04/25/18 02:44 Respiratory Rate 16 04/25/18 02:44 Blood Pressure 125/53 04/25/18 02:44 O2 Sat by Pulse Oximetry 99 04/25/18 02:44 Temperature 99.1 F 04/25/18 04:49 Pulse Rate 86 04/25/18 06:15 Respiratory Rate 16 04/25/18 06:15 Blood Pressure 137/78 04/25/18 06:15 O2 Sat by Pulse Oximetry 99 04/25/18 06:15 Oxygen Delivery Oxygen Delivery Nasal Cannula Medical Decision Making - MDM Narrative Medical decision making narrative: 73-year-old male presents emergency department with concern for striking his head today after falling forward while using the bathroom. Patient is febrile here and tachycardic. He has a elevated blood glucose in the 532. After a dministration of 10 units of insulin IV and 2 L of fluids, patient's repeat glucose is 192. His lactic acid is 4.6 initially with a leukocytosis of 15.2. We have obtained blood cultures as well. We obtained a CT scan of the head which revealed no acute intracranial abnormality. CT of cervical spine did not reveal any acute cervical spine fracture. Chest x-ray was unremarkable. CT scan of abdomen and pelvis revealed concern for cystic lesions in the liver for adjacent to the gallbladder fossa per radiology. Was also evidence of enteritis. Patient was given vancomycin, cefepime, Flagyl for coverage for hepatic abscesses. He is supposed to have interventional radiology drain these abscesses as previous is scheduled for today. Patient admitted to Dr. Vaz for further management. Cervical Spine CT 04/25/18 02:46 IMPRESSION: No acute cervical spine fracture. Multilevel cervical spondylosis. D/ / Antoine Sessions / Antoine Sessions Interpreting Provider: Antoine Sessions Chest X-Ray 04/25/18 02:46 IMPRESSION: Bibasilar subsegmental atelectasis. No lobar consolidation. D/ / Antoine Sessions / Antoine Sessions Interpreting Provider: Antoine Eddy Head CT 04/25/18 02:46 IMPRESSION: No acute intracranial abnormality. Mild chronic small vessel ischemic disease. Small remote lacunar infarct in the posterior limb of the right internal capsule. D/ / Antoine Sessions / Antoine Eddy Interpreting Provider: Antoine Eddy Abdomen/Pelvis CT 04/25/18 02:57 IMPRESSION: 1. Redemonstration of a cluster of low-attenuation cystic lesions in the liver adjacent to the gallbladder fossa. These lesions remain indeterminate and could represent hepatic abscesses in the appropriate clinical setting. Neoplastic process is an additional consideration. MRI of the liver may be helpful for further evaluation. 2. Fluid throughout the colon suggests enteritis with diarrhea. Colonic diverticulosis without obvious acute diverticulitis. 3. Cholelithiasis. 4. Urinary bladder wall thickening, underlying cystitis is not excluded. D/ / Antoine Sessions / Antoine Sessions Interpreting Provider: Antoine Eddy - Lab Data Result diagrams: 04/25/18 02:56 04/25/18 02:56 Lab Results 04/25/18 04/25/18 04/25/18 Range/Units 02:46 02:56 02:56 WBC 15.2 H (4.3-11.1) K/mcL RBC 3.27 L (4.19-5.50) M/mcL Hgb 9.2 L (12.9-16.9) g/dL Hct 28.7 L (37.5-50.1) % MCV 87.8 (83.0-100.0) fL MCH 28.1 (28.0-33.3) pg MCHC 32.1 (31.6-35.5) g/dL RDW 14.3 (11.5-14.5) % Plt Count 250 (140-400) K/mcL MPV 12.0 (9.4-12.4) fL Immature Gran % 1.2 (0-4) % Seg Neutrophils % 92.8 % Lymphocytes % 1.8 % Monocytes % 3.8 % Eosinophils % 0.1 % Basophils % 0.3 % Neutrophils # 14.1 H (1.6-8.9) K/mcL Lymphocytes # 0.3 L (0.6-4.6) K/mcL Monocytes # 0.6 (0.0-1.3) K/mcL Eosinophils # 0.0 (0.0-0.6) K/mcL Basophils # 0.1 (0.0-0.2) K/mcL PT 13.2 H (9.4-12.1) Seconds INR 1.2 APTT 29.4 (26.0-36.0) Seconds VBG pH (7.32-7.42) pH Units VBG pCO2 (41-51) mmHg VBG pO2 (25-50) mmHg VBG HCO3 (21-27) mEq/L Sodium (136-145) mEq/L Potassium (3.5-5.1) mEq/L Chloride (98-107) mEq/L Carbon Dioxide (23-29) mEq/L BUN (8-23) mg/dL Creatinine (0.70-1.30) mg/dL Est GFR ( Amer) (> 60) Est GFR (Non-Af Amer) (> 60) BUN/Creatinine Ratio (6-26) Glucose (70-105) mg/dL POC Glucose (70-99) mg/dL Calculated Osmolality (280-300) Lactic Acid (0.5-2.2) mmol/L Calcium (8.6-10.3) mg/dL Total Bilirubin (0.3-1.0) mg/dL Direct Bilirubin (0.0-0.2) mg/dL Indirect Bilirubin (0.0-1.2) mg/dL AST (13-39) Units/L ALT (7-52) Units/L Alkaline Phosphatase (34-104) Units/L Ammonia (16-53) mcmol/L Troponin I (< 0.04) ng/mL Serum Total Protein (6.4-8.9) g/dL Albumin (3.5-5.7) g/dL Globulin (2.4-3.5) g/dL Albumin/Globulin Ratio (1.1-2.2) Beta-Hydroxybutyric Acd (0.02-0.27) mmol/L TSH (0.340-5.600) mcIU/mL Urine Color (Yellow) Urine Clarity (Clear) Urine pH (5.0-8.0) pH Units Ur Specific [place] (1.010-1.025) Urine Protein (Neg-Trace) mg/dL Urine Glucose (UA) (Normal) mg/dL Urine Ketones (Negative) mg/dL Urine Blood (Negative) Urine Nitrite (Negative) Urine Bilirubin (Negative) Urine Urobilinogen (Normal) mg/dL Ur Leukocyte Esterase (Negative) Urine Microscopic RBC (0-3) per hpf Ur Squamous Epith Cells (None-Few) per lpf Urine Bacteria (None-Few) per hpf Hyaline Casts (None-Few) per lpf Ur Culture Indicated? (NO) Urine Opiates Screen Positive H (Roceqp=430) ng/mL Ur Barbiturates Screen Negative (Lwyyit=115) ng/mL Ur Phencyclidine Scrn Negative (Cutoff=25) ng/mL Ur Amphetamines Screen Negative (Timfcu=3758) ng/mL U Benzodiazepines Scrn Negative (Sdjxmb=917) ng/mL Urine Cocaine Screen Negative (Cutoff= 300) ng/mL U Marijuana (THC) Screen Negative (Cutoff = 50) ng/mL Ur Drug Screen Interp See Below Ethyl Alcohol (Less than 10) mg/dL 04/25/18 04/25/18 04/25/18 Range/Units 02:56 02:56 02:56 WBC (4.3-11.1) K/mcL RBC (4.19-5.50) M/mcL Hgb (12.9-16.9) g/dL Hct (37.5-50.1) % MCV (83.0-100.0) fL MCH (28.0-33.3) pg MCHC (31.6-35.5) g/dL RDW (11.5-14.5) % Plt Count (140-400) K/mcL MPV (9.4-12.4) fL Immature Gran % (0-4) % Seg Neutrophils % % Lymphocytes % % Monocytes % % Eosinophils % % Basophils % % Neutrophils # (1.6-8.9) K/mcL Lymphocytes # (0.6-4.6) K/mcL Monocytes # (0.0-1.3) K/mcL Eosinophils # (0.0-0.6) K/mcL Basophils # (0.0-0.2) K/mcL PT (9.4-12.1) Seconds INR APTT (26.0-36.0) Seconds VBG pH (7.32-7.42) pH Units VBG pCO2 (41-51) mmHg VBG pO2 (25-50) mmHg VBG HCO3 (21-27) mEq/L Sodium 128 L (136-145) mEq/L Potassium 4.2 (3.5-5.1) mEq/L Chloride 89 L (98-107) mEq/L Carbon Dioxide 31 H (23-29) mEq/L BUN 23 (8-23) mg/dL Creatinine 1.58 H (0.70-1.30) mg/dL Est GFR ( Amer) 52 L (> 60) Est GFR (Non-Af Amer) 43 L (> 60) BUN/Creatinine Ratio 15 (6-26) Glucose 532 H* (70-105) mg/dL POC Glucose (70-99) mg/dL Calculated Osmolality 294 (280-300) Lactic Acid 4.6 H* (0.5-2.2) mmol/L Calcium 9.2 (8.6-10.3) mg/dL Total Bilirubin 0.5 (0.3-1.0) mg/dL Direct Bilirubin 0.1 (0.0-0.2) mg/dL Indirect Bilirubin 0.4 (0.0-1.2) mg/dL AST 13 (13-39) Units/L ALT 7 (7-52) Units/L Alkaline Phosphatase 109 H (34-104) Units/L Ammonia 32 (16-53) mcmol/L Troponin I 0.03 (< 0.04) ng/mL Serum Total Protein 7.1 (6.4-8.9) g/dL Albumin 3.3 L (3.5-5.7) g/dL Globulin 3.8 H (2.4-3.5) g/dL Albumin/Globulin Ratio 0.9 L (1.1-2.2) Beta-Hydroxybutyric Acd (0.02-0.27) mmol/L TSH (0.340-5.600) mcIU/mL Urine Color (Yellow) Urine Clarity (Clear) Urine pH (5.0-8.0) pH Units Ur Specific [place] (1.010-1.025) Urine Protein (Neg-Trace) mg/dL Urine Glucose (UA) (Normal) mg/dL Urine Ketones (Negative) mg/dL Urine Blood (Negative) Urine Nitrite (Negative) Urine Bilirubin (Negative) Urine Urobilinogen (Normal) mg/dL Ur Leukocyte Esterase (Negative) Urine Microscopic RBC (0-3) per hpf Ur Squamous Epith Cells (None-Few) per lpf Urine Bacteria (None-Few) per hpf Hyaline Casts (None-Few) per lpf Ur Culture Indicated? (NO) Urine Opiates Screen (Yrqevk=029) ng/mL Ur Barbiturates Screen (Taudyr=257) ng/mL Ur Phencyclidine Scrn (Cutoff=25) ng/mL Ur Amphetamines Screen (Fpkefl=1332) ng/mL U Benzodiazepines Scrn (Tbrllb=732) ng/mL Urine Cocaine Screen (Cutoff= 300) ng/mL U Marijuana (THC) Screen (Cutoff = 50) ng/mL Ur Drug Screen Interp Ethyl Alcohol < 10 (Less than 10) mg/dL 04/25/18 04/25/18 04/25/18 Range/Units 02:56 02:57 02:58 WBC (4.3-11.1) K/mcL RBC (4.19-5.50) M/mcL Hgb (12.9-16.9) g/dL Hct (37.5-50.1) % MCV (83.0-100.0) fL MCH (28.0-33.3) pg MCHC (31.6-35.5) g/dL RDW (11.5-14.5) % Plt Count (140-400) K/mcL MPV (9.4-12.4) fL Immature Gran % (0-4) % Seg Neutrophils % % Lymphocytes % % Monocytes % % Eosinophils % % Basophils % % Neutrophils # (1.6-8.9) K/mcL Lymphocytes # (0.6-4.6) K/mcL Monocytes # (0.0-1.3) K/mcL Eosinophils # (0.0-0.6) K/mcL Basophils # (0.0-0.2) K/mcL PT (9.4-12.1) Seconds INR APTT (26.0-36.0) Seconds VBG pH (7.32-7.42) pH Units VBG pCO2 (41-51) mmHg VBG pO2 (25-50) mmHg VBG HCO3 (21-27) mEq/L Sodium (136-145) mEq/L Potassium (3.5-5.1) mEq/L Chloride (98-107) mEq/L Carbon Dioxide (23-29) mEq/L BUN (8-23) mg/dL Creatinine (0.70-1.30) mg/dL Est GFR ( Amer) (> 60) Est GFR (Non-Af Amer) (> 60) BUN/Creatinine Ratio (6-26) Glucose (70-105) mg/dL POC Glucose 572 H* 586 H* (70-99) mg/dL Calculated Osmolality (280-300) Lactic Acid (0.5-2.2) mmol/L Calcium (8.6-10.3) mg/dL Total Bilirubin (0.3-1.0) mg/dL Direct Bilirubin (0.0-0.2) mg/dL Indirect Bilirubin (0.0-1.2) mg/dL AST (13-39) Units/L ALT (7-52) Units/L Alkaline Phosphatase (34-104) Units/L Ammonia (16-53) mcmol/L Troponin I (< 0.04) ng/mL Serum Total Protein (6.4-8.9) g/dL Albumin (3.5-5.7) g/dL Globulin (2.4-3.5) g/dL Albumin/Globulin Ratio (1.1-2.2) Beta-Hydroxybutyric Acd 0.13 (0.02-0.27) mmol/L TSH (0.340-5.600) mcIU/mL Urine Color (Yellow) Urine Clarity (Clear) Urine pH (5.0-8.0) pH Units Ur Specific [place] (1.010-1.025) Urine Protein (Neg-Trace) mg/dL Urine Glucose (UA) (Normal) mg/dL Urine Ketones (Negative) mg/dL Urine Blood (Negative) Urine Nitrite (Negative) Urine Bilirubin (Negative) Urine Urobilinogen (Normal) mg/dL Ur Leukocyte Esterase (Negative) Urine Microscopic RBC (0-3) per hpf Ur Squamous Epith Cells (None-Few) per lpf Urine Bacteria (None-Few) per hpf Hyaline Casts (None-Few) per lpf Ur Culture Indicated? (NO) Urine Opiates Screen (Ndkshp=065) ng/mL Ur Barbiturates Screen (Lgbzua=216) ng/mL Ur Phencyclidine Scrn (Cutoff=25) ng/mL Ur Amphetamines Screen (Ckyfdy=0795) ng/mL U Benzodiazepines Scrn (Rjbqey=065) ng/mL Urine Cocaine Screen (Cutoff= 300) ng/mL U Marijuana (THC) Screen (Cutoff = 50) ng/mL Ur Drug Screen Interp Ethyl Alcohol (Less than 10) mg/dL 04/25/18 04/25/18 04/25/18 Range/Units 03:00 03:47 03:59 WBC (4.3-11.1) K/mcL RBC (4.19-5.50) M/mcL Hgb (12.9-16.9) g/dL Hct (37.5-50.1) % MCV (83.0-100.0) fL MCH (28.0-33.3) pg MCHC (31.6-35.5) g/dL RDW (11.5-14.5) % Plt Count (140-400) K/mcL MPV (9.4-12.4) fL Immature Gran % (0-4) % Seg Neutrophils % % Lymphocytes % % Monocytes % % Eosinophils % % Basophils % % Neutrophils # (1.6-8.9) K/mcL Lymphocytes # (0.6-4.6) K/mcL Monocytes # (0.0-1.3) K/mcL Eosinophils # (0.0-0.6) K/mcL Basophils # (0.0-0.2) K/mcL PT (9.4-12.1) Seconds INR APTT (26.0-36.0) Seconds VBG pH 7.34 (7.32-7.42) pH Units VBG pCO2 59 H (41-51) mmHg VBG pO2 42 (25-50) mmHg VBG HCO3 32 H (21-27) mEq/L Sodium (136-145) mEq/L Potassium (3.5-5.1) mEq/L Chloride (98-107) mEq/L Carbon Dioxide (23-29) mEq/L BUN (8-23) mg/dL Creatinine (0.70-1.30) mg/dL Est GFR ( Amer) (> 60) Est GFR (Non-Af Amer) (> 60) BUN/Creatinine Ratio (6-26) Glucose (70-105) mg/dL POC Glucose (70-99) mg/dL Calculated Osmolality (280-300) Lactic Acid (0.5-2.2) mmol/L Calcium (8.6-10.3) mg/dL Total Bilirubin (0.3-1.0) mg/dL Direct Bilirubin (0.0-0.2) mg/dL Indirect Bilirubin (0.0-1.2) mg/dL AST (13-39) Units/L ALT (7-52) Units/L Alkaline Phosphatase (34-104) Units/L Ammonia (16-53) mcmol/L Troponin I (< 0.04) ng/mL Serum Total Protein (6.4-8.9) g/dL Albumin (3.5-5.7) g/dL Globulin (2.4-3.5) g/dL Albumin/Globulin Ratio (1.1-2.2) Beta-Hydroxybutyric Acd (0.02-0.27) mmol/L TSH 3.152 (0.340-5.600) mcIU/mL Urine Color Yellow (Yellow) Urine Clarity Clear (Clear) Urine pH 7.0 (5.0-8.0) pH Units Ur Specific [place] 1.021 (1.010-1.025) Urine Protein Trace (Neg-Trace) mg/dL Urine Glucose (UA) >=1000 H (Normal) mg/dL Urine Ketones Negative (Negative) mg/dL Urine Blood Negative (Negative) Urine Nitrite Negative (Negative) Urine Bilirubin Negative (Negative) Urine Urobilinogen Normal (Normal) mg/dL Ur Leukocyte Esterase Negative (Negative) Urine Microscopic RBC 0-3 (0-3) per hpf Ur Squamous Epith Cells None Seen (None-Few) per lpf Urine Bacteria None Seen (None-Few) per hpf Hyaline Casts None Seen (None-Few) per lpf Ur Culture Indicated? NO (NO) Urine Opiates Screen (Vrsjdu=027) ng/mL Ur Barbiturates Screen (Gqclzk=698) ng/mL Ur Phencyclidine Scrn (Cutoff=25) ng/mL Ur Amphetamines Screen (Ztsevf=4352) ng/mL U Benzodiazepines Scrn (Wwgwox=756) ng/mL Urine Cocaine Screen (Cutoff= 300) ng/mL U Marijuana (THC) Screen (Cutoff = 50) ng/mL Ur Drug Screen Interp Ethyl Alcohol (Less than 10) mg/dL - EKG Data EKG #1 EKG attestation: Yes I reviewed and interpreted this EKG. EKG results narrative: 2:53 Heart rate 99 bpm, UT interval 155 ms, QRS duration 88 ms, QT 363 ms, normal axis. Sinus tachycardia with a ventricular rate of 99 bpm. No evidence of any ische oliver ST changes on this EKG.
[2018-04-25] MEDS ORDERED: Isovue-370 500 ML INFUS..BTL IV ONE (02:57)
[2018-04-25] MEDS ORDERED: 0.9 % Sodium Chloride 1,000 ML IVC ONE ×2 (02:59→03:15)
[2018-04-25] MEDS ORDERED: Cefepime HCl 2,000 MG in Water for inj. (sterile) 20 ML 20 ML IVP STA (03:02)
[2018-04-25 03:16] LABS: Basophils # 0.1 K/mcL (0.0-0.2); Basophils % 0.3 %; Eosinophils % 0.1 %; Hematocrit 28.7 % (37.5-50.1); Hemoglobin 9.2 g/dL (12.9-16.9); Immature Granulocytes % 1.2 % (0-4); Lymphocytes # 0.3 K/mcL (0.6-4.6); Lymphocytes % 1.8 %; Mean Corpuscular HGB Conc 32.1 g/dL (31.6-35.5); Mean Corpuscular Hemoglobin 28.1 pg (28.0-33.3); Mean Corpuscular Volume 87.8 fL (83.0-100.0); Monocytes # 0.6 K/mcL (0.0-1.3); Monocytes % 3.8 %; Neutrophils # 14.1 K/mcL (1.6-8.9); Platelet Count 250 K/mcL (140-400); Red Blood Count 3.27 M/mcL (4.19-5.50); Red Cell Distribution Width 14.3 % (11.5-14.5); Segmented Neutrophils % 92.8 %
--- NOTE | 2018-04-25 03:17 | Emergency Department Note ---
Disposition Clinical Impression: Liver abscess, Elevated lactic acid level Sepsis Qualifiers: Sepsis type: sepsis due to unspecified organism Qualified Code(s): A41.9 - Sepsis, unspecified organism Disposition: Admitted As Inpatient Condition: Fair General Adult HPI - General Chief complaint: ED Weakness Stated complaint: weakness Time Seen by Provider: 04/25/18 02:45 Source: EMS Limitations: no limitations Nursing Notes Reviewed: Yes Vital Signs Reviewed: Yes - History of Present Illness Pain Scale: 0 - Related Data Home Medications Medication Instructions Recorded Confirmed Insulin Regular Human [Humulin R] 3 unit SQ QDPC 06/13/16 04/25/18 Terazosin HCl 2 mg PO HS 06/13/16 04/25/18 cloNIDine HCl [CloNIDine HCl] 0.1 mg PO BID 06/13/16 04/25/18 Aspirin 81 mg PO DAILY 04/04/18 04/25/18 Cholecalciferol (Vitamin D3) 2,000 unit PO DAILY 04/04/18 04/25/18 [Vitamin D3] Diclofenac Sodium 2 g TP DAILY PRN 04/04/18 04/25/18 Escitalopram [Lexapro] 20 mg PO DAILY 04/04/18 04/25/18 Hydrocodone/Acetaminophen [[place] 1 tab PO Q6H PRN 04/04/18 04/25/18 10-325 Tablet] Insulin DETEMIR [Levemir] 25 unit SQ QPM 04/04/18 04/25/18 Lisinopril-HCTZ 10-12.5 [Prinzide 1 tab PO DAILY 04/04/18 04/25/18 10-12.5] Melatonin [Melatin] 9 mg PO HS 04/04/18 04/25/18 Memantine HCl 10 mg PO BID 04/04/18 04/25/18 Multivitamin [One Daily 1 tab PO DAILY 04/04/18 04/25/18 Multivitamin] Omeprazole [PriLOSEC] 20 mg PO DAILY 04/04/18 04/25/18 Propylene Glycol/Peg 400/Pf 1 drop BOTH EYES TID 04/04/18 04/25/18 [Systane Ultra 0.4-0.3% Eye Drp] Ropinirole HCl [Requip] 1.5 mg PO HS 04/04/18 04/25/18 Simvastatin 40 mg PO QPM 04/04/18 04/25/18 Trazodone HCl 400 mg PO HS PRN 04/04/18 04/25/18 Cefdinir [Omnicef] 300 mg PO BID 04/25/18 04/25/18 metroNIDAZOLE [Metronidazole] 500 mg PO TID 04/25/18 04/25/18 Allergies Allergy/AdvReac Type Severity Reaction Status Date / Time Amoxicillin Allergy Rash Verified 04/04/18 10:54 Methadone Allergy Nausea Verified 04/04/18 10:54 gabapentin AdvReac See Verified 04/04/18 10:54 Comments insulin glargine AdvReac See Verified 04/04/18 10:54 [From Lantus] Comments levofloxacin [From Levaquin] AdvReac See Verified 04/04/18 10:54 Comments pregabalin [From Lyrica] AdvReac See Verified 04/04/18 10:54 Comments Past Medical History - Past Medical History Medical history: Reports: diabetes, hyperlipidemia, renal disease, thyroid disease, other Psychiatric history: Reports: anxiety, depression, PTSD - Social History Smoking Status: Never smoker Smokeless Tobacco Status: No Alcohol use: Reports: recent Drug use: Reports: none Physical Exam - General Limitations: no limitations General appearance: alert, in no apparent distress Course Vital Signs Temperature 101.2 F H 04/25/18 02:44 Pulse Rate 105 04/25/18 02:44 Respiratory Rate 16 04/25/18 02:44 Blood Pressure 125/53 04/25/18 02:44 O2 Sat by Pulse Oximetry 99 04/25/18 02:44 Temperature 99.1 F 04/25/18 04:49 Pulse Rate 86 04/25/18 06:15 Respiratory Rate 16 04/25/18 06:15 Blood Pressure 137/78 04/25/18 06:15 O2 Sat by Pulse Oximetry 99 04/25/18 06:15 Oxygen Delivery Oxygen Delivery Nasal Cannula Medical Decision Making - Lab Data Result diagrams: 04/25/18 02:56 04/25/18 02:56 Lab Results 04/25/18 04/25/18 04/25/18 Range/Units 02:46 02:56 02:56 WBC 15.2 H (4.3-11.1) K/mcL RBC 3.27 L (4.19-5.50) M/mcL Hgb 9.2 L (12.9-16.9) g/dL Hct 28.7 L (37.5-50.1) % MCV 87.8 (83.0-100.0) fL MCH 28.1 (28.0-33.3) pg MCHC 32.1 (31.6-35.5) g/dL RDW 14.3 (11.5-14.5) % Plt Count 250 (140-400) K/mcL MPV 12.0 (9.4-12.4) fL Immature Gran % 1.2 (0-4) % Seg Neutrophils % 92.8 % Lymphocytes % 1.8 % Monocytes % 3.8 % Eosinophils % 0.1 % Basophils % 0.3 % Neutrophils # 14.1 H (1.6-8.9) K/mcL Lymphocytes # 0.3 L (0.6-4.6) K/mcL Monocytes # 0.6 (0.0-1.3) K/mcL Eosinophils # 0.0 (0.0-0.6) K/mcL Basophils # 0.1 (0.0-0.2) K/mcL PT 13.2 H (9.4-12.1) Seconds INR 1.2 APTT 29.4 (26.0-36.0) Seconds VBG pH (7.32-7.42) pH Units VBG pCO2 (41-51) mmHg VBG pO2 (25-50) mmHg VBG HCO3 (21-27) mEq/L Sodium (136-145) mEq/L Potassium (3.5-5.1) mEq/L Chloride (98-107) mEq/L Carbon Dioxide (23-29) mEq/L BUN (8-23) mg/dL Creatinine (0.70-1.30) mg/dL Est GFR ( Amer) (> 60) Est GFR (Non-Af Amer) (> 60) BUN/Creatinine Ratio (6-26) Glucose (70-105) mg/dL POC Glucose (70-99) mg/dL Calculated Osmolality (280-300) Lactic Acid (0.5-2.2) mmol/L Calcium (8.6-10.3) mg/dL Total Bilirubin (0.3-1.0) mg/dL Direct Bilirubin (0.0-0.2) mg/dL Indirect Bilirubin (0.0-1.2) mg/dL AST (13-39) Units/L ALT (7-52) Units/L Alkaline Phosphatase (34-104) Units/L Ammonia (16-53) mcmol/L Troponin I (< 0.04) ng/mL Serum Total Protein (6.4-8.9) g/dL Albumin (3.5-5.7) g/dL Globulin (2.4-3.5) g/dL Albumin/Globulin Ratio (1.1-2.2) Beta-Hydroxybutyric Acd (0.02-0.27) mmol/L TSH (0.340-5.600) mcIU/mL Urine Color (Yellow) Urine Clarity (Clear) Urine pH (5.0-8.0) pH Units Ur Specific [place] (1.010-1.025) Urine Protein (Neg-Trace) mg/dL Urine Glucose (UA) (Normal) mg/dL Urine Ketones (Negative) mg/dL Urine Blood (Negative) Urine Nitrite (Negative) Urine Bilirubin (Negative) Urine Urobilinogen (Normal) mg/dL Ur Leukocyte Esterase (Negative) Urine Microscopic RBC (0-3) per hpf Ur Squamous Epith Cells (None-Few) per lpf Urine Bacteria (None-Few) per hpf Hyaline Casts (None-Few) per lpf Ur Culture Indicated? (NO) Urine Opiates Screen Positive H (Xyzxls=874) ng/mL Ur Barbiturates Screen Negative (Ugdabt=081) ng/mL Ur Phencyclidine Scrn Negative (Cutoff=25) ng/mL Ur Amphetamines Screen Negative (Jyezqq=5616) ng/mL U Benzodiazepines Scrn Negative (Kzjkoh=424) ng/mL Urine Cocaine Screen Negative (Cutoff= 300) ng/mL U Marijuana (THC) Screen Negative (Cutoff = 50) ng/mL Ur Drug Screen Interp See Below Ethyl Alcohol (Less than 10) mg/dL 04/25/1818 04/25/18 Range/Units 02:56 02:56 02:56 WBC (4.3-11.1) K/mcL RBC (4.19-5.50) M/mcL Hgb (12.9-16.9) g/dL Hct (37.5-50.1) % MCV (83.0-100.0) fL MCH (28.0-33.3) pg MCHC (31.6-35.5) g/dL RDW (11.5-14.5) % Plt Count (140-400) K/mcL MPV (9.4-12.4) fL Immature Gran % (0-4) % Seg Neutrophils % % Lymphocytes % % Monocytes % % Eosinophils % % Basophils % % Neutrophils # (1.6-8.9) K/mcL Lymphocytes # (0.6-4.6) K/mcL Monocytes # (0.0-1.3) K/mcL Eosinophils # (0.0-0.6) K/mcL Basophils # (0.0-0.2) K/mcL PT (9.4-12.1) Seconds INR APTT (26.0-36.0) Seconds VBG pH (7.32-7.42) pH Units VBG pCO2 (41-51) mmHg VBG pO2 (25-50) mmHg VBG HCO3 (21-27) mEq/L Sodium 128 L (136-145) mEq/L Potassium 4.2 (3.5-5.1) mEq/L Chloride 89 L (98-107) mEq/L Carbon Dioxide 31 H (23-29) mEq/L BUN 23 (8-23) mg/dL Creatinine 1.58 H (0.70-1.30) mg/dL Est GFR ( Amer) 52 L (> 60) Est GFR (Non-Af Amer) 43 L (> 60) BUN/Creatinine Ratio 15 (6-26) Glucose 532 H* (70-105) mg/dL POC Glucose (70-99) mg/dL Calculated Osmolality 294 (280-300) Lactic Acid 4.6 H* (0.5-2.2) mmol/L Calcium 9.2 (8.6-10.3) mg/dL Total Bilirubin 0.5 (0.3-1.0) mg/dL Direct Bilirubin 0.1 (0.0-0.2) mg/dL Indirect Bilirubin 0.4 (0.0-1.2) mg/dL AST 13 (13-39) Units/L ALT 7 (7-52) Units/L Alkaline Phosphatase 109 H (34-104) Units/L Ammonia 32 (16-53) mcmol/L Troponin I 0.03 (< 0.04) ng/mL Serum Total Protein 7.1 (6.4-8.9) g/dL Albumin 3.3 L (3.5-5.7) g/dL Globulin 3.8 H (2.4-3.5) g/dL Albumin/Globulin Ratio 0.9 L (1.1-2.2) Beta-Hydroxybutyric Acd (0.02-0.27) mmol/L TSH (0.340-5.600) mcIU/mL Urine Color (Yellow) Urine Clarity (Clear) Urine pH (5.0-8.0) pH Units Ur Specific [place] (1.010-1.025) Urine Protein (Neg-Trace) mg/dL Urine Glucose (UA) (Normal) mg/dL Urine Ketones (Negative) mg/dL Urine Blood (Negative) Urine Nitrite (Negative) Urine Bilirubin (Negative) Urine Urobilinogen (Normal) mg/dL Ur Leukocyte Esterase (Negative) Urine Microscopic RBC (0-3) per hpf Ur Squamous Epith Cells (None-Few) per lpf Urine Bacteria (None-Few) per hpf Hyaline Casts (None-Few) per lpf Ur Culture Indicated? (NO) Urine Opiates Screen (Wjxtkc=134) ng/mL Ur Barbiturates Screen (Nodkrc=620) ng/mL Ur Phencyclidine Scrn (Cutoff=25) ng/mL Ur Amphetamines Screen (Cyrdrs=9790) ng/mL U Benzodiazepines Scrn (Thkgfr=655) ng/mL Urine Cocaine Screen (Cutoff= 300) ng/mL U Marijuana (THC) Screen (Cutoff = 50) ng/mL Ur Drug Screen Interp Ethyl Alcohol < 10 (Less than 10) mg/dL 04/25/18 04/25/18 04/25/18 Range/Units 02:56 02:57 02:58 WBC (4.3-11.1) K/mcL RBC (4.19-5.50) M/mcL Hgb (12.9-16.9) g/dL Hct (37.5-50.1) % MCV (83.0-100.0) fL MCH (28.0-33.3) pg MCHC (31.6-35.5) g/dL RDW (11.5-14.5) % Plt Count (140-400) K/mcL MPV (9.4-12.4) fL Immature Gran % (0-4) % Seg Neutrophils % % Lymphocytes % % Monocytes % % Eosinophils % % Basophils % % Neutrophils # (1.6-8.9) K/mcL Lymphocytes # (0.6-4.6) K/mcL Monocytes # (0.0-1.3) K/mcL Eosinophils # (0.0-0.6) K/mcL Basophils # (0.0-0.2) K/mcL PT (9.4-12.1) Seconds INR APTT (26.0-36.0) Seconds VBG pH (7.32-7.42) pH Units VBG pCO2 (41-51) mmHg VBG pO2 (25-50) mmHg VBG HCO3 (21-27) mEq/L Sodium (136-145) mEq/L Potassium (3.5-5.1) mEq/L Chloride (98-107) mEq/L Carbon Dioxide (23-29) mEq/L BUN (8-23) mg/dL Creatinine (0.70-1.30) mg/dL Est GFR ( Amer) (> 60) Est GFR (Non-Af Amer) (> 60) BUN/Creatinine Ratio (6-26) Glucose (70-105) mg/dL POC Glucose 572 H* 586 H* (70-99) mg/dL Calculated Osmolality (280-300) Lactic Acid (0.5-2.2) mmol/L Calcium (8.6-10.3) mg/dL Total Bilirubin (0.3-1.0) mg/dL Direct Bilirubin (0.0-0.2) mg/dL Indirect Bilirubin (0.0-1.2) mg/dL AST (13-39) Units/L ALT (7-52) Units/L Alkaline Phosphatase (34-104) Units/L Ammonia (16-53) mcmol/L Troponin I (< 0.04) ng/mL Serum Total Protein (6.4-8.9) g/dL Albumin (3.5-5.7) g/dL Globulin (2.4-3.5) g/dL Albumin/Globulin Ratio (1.1-2.2) Beta-Hydroxybutyric Acd 0.13 (0.02-0.27) mmol/L TSH (0.340-5.600) mcIU/mL Urine Color (Yellow) Urine Clarity (Clear) Urine pH (5.0-8.0) pH Units Ur Specific [place] (1.010-1.025) Urine Protein (Neg-Trace) mg/dL Urine Glucose (UA) (Normal) mg/dL Urine Ketones (Negative) mg/dL Urine Blood (Negative) Urine Nitrite (Negative) Urine Bilirubin (Negative) Urine Urobilinogen (Normal) mg/dL Ur Leukocyte Esterase (Negative) Urine Microscopic RBC (0-3) per hpf Ur Squamous Epith Cells (None-Few) per lpf Urine Bacteria (None-Few) per hpf Hyaline Casts (None-Few) per lpf Ur Culture Indicated? (NO) Urine Opiates Screen (Iwzxry=384) ng/mL Ur Barbiturates Screen (Ssontk=572) ng/mL Ur Phencyclidine Scrn (Cutoff=25) ng/mL Ur Amphetamines Screen (Trfbna=0091) ng/mL U Benzodiazepines Scrn (Thquyh=857) ng/mL Urine Cocaine Screen (Cutoff= 300) ng/mL U Marijuana (THC) Screen (Cutoff = 50) ng/mL Ur Drug Screen Interp Ethyl Alcohol (Less than 10) mg/dL 04/25/18 04/25/18 04/25/18 Range/Units 03:00 03:47 03:59 WBC (4.3-11.1) K/mcL RBC (4.19-5.50) M/mcL Hgb (12.9-16.9) g/dL Hct (37.5-50.1) % MCV (83.0-100.0) fL MCH (28.0-33.3) pg MCHC (31.6-35.5) g/dL RDW (11.5-14.5) % Plt Count (140-400) K/mcL MPV (9.4-12.4) fL Immature Gran % (0-4) % Seg Neutrophils % % Lymphocytes % % Monocytes % % Eosinophils % % Basophils % % Neutrophils # (1.6-8.9) K/mcL Lymphocytes # (0.6-4.6) K/mcL Monocytes # (0.0-1.3) K/mcL Eosinophils # (0.0-0.6) K/mcL Basophils # (0.0-0.2) K/mcL PT (9.4-12.1) Seconds INR APTT (26.0-36.0) Seconds VBG pH 7.34 (7.32-7.42) pH Units VBG pCO2 59 H (41-51) mmHg VBG pO2 42 (25-50) mmHg VBG HCO3 32 H (21-27) mEq/L Sodium (136-145) mEq/L Potassium (3.5-5.1) mEq/L Chloride (98-107) mEq/L Carbon Dioxide (23-29) mEq/L BUN (8-23) mg/dL Creatinine (0.70-1.30) mg/dL Est GFR ( Amer) (> 60) Est GFR (Non-Af Amer) (> 60) BUN/Creatinine Ratio (6-26) Glucose (70-105) mg/dL POC Glucose (70-99) mg/dL Calculated Osmolality (280-300) Lactic Acid (0.5-2.2) mmol/L Calcium (8.6-10.3) mg/dL Total Bilirubin (0.3-1.0) mg/dL Direct Bilirubin (0.0-0.2) mg/dL Indirect Bilirubin (0.0-1.2) mg/dL AST (13-39) Units/L ALT (7-52) Units/L Alkaline Phosphatase (34-104) Units/L Ammonia (16-53) mcmol/L Troponin I (< 0.04) ng/mL Serum Total Protein (6.4-8.9) g/dL Albumin (3.5-5.7) g/dL Globulin (2.4-3.5) g/dL Albumin/Globulin Ratio (1.1-2.2) Beta-Hydroxybutyric Acd (0.02-0.27) mmol/L TSH 3.152 (0.340-5.600) mcIU/mL Urine Color Yellow (Yellow) Urine Clarity Clear (Clear) Urine pH 7.0 (5.0-8.0) pH Units Ur Specific [place] 1.021 (1.010-1.025) Urine Protein Trace (Neg-Trace) mg/dL Urine Glucose (UA) >=1000 H (Normal) mg/dL Urine Ketones Negative (Negative) mg/dL Urine Blood Negative (Negative) Urine Nitrite Negative (Negative) Urine Bilirubin Negative (Negative) Urine Urobilinogen Normal (Normal) mg/dL Ur Leukocyte Esterase Negative (Negative) Urine Microscopic RBC 0-3 (0-3) per hpf Ur Squamous Epith Cells None Seen (None-Few) per lpf Urine Bacteria None Seen (None-Few) per hpf Hyaline Casts None Seen (None-Few) per lpf Ur Culture Indicated? NO (NO) Urine Opiates Screen (Zzwdgg=134) ng/mL Ur Barbiturates Screen (Kizmck=097) ng/mL Ur Phencyclidine Scrn (Cutoff=25) ng/mL Ur Amphetamines Screen (Uqnict=4522) ng/mL U Benzodiazepines Scrn (Wpjznw=322) ng/mL Urine Cocaine Screen (Cutoff= 300) ng/mL U Marijuana (THC) Screen (Cutoff = 50) ng/mL Ur Drug Screen Interp Ethyl Alcohol (Less than 10) mg/dL Attestation Statement - Attestation Attestation: Resident Attestation: I examined this patient and my medical decision making was reviewed with the Resident Physician. I agree with the documented findings, disposition and treatment plan as described except to the extent set forth below. We independently had [id number] contact with the patient. Patient seen with resident physician Dr. Patel. Please refer to his note for further details and disposition. Diabetes, hyperlipidemia, renal disease, thyroid disease with recent significant hospitalization. Patient was found to have concern for liver abscesses. Patient underwent IV antibiotics. Patient per chart review left at the 's request. Per interview with the the patient wanted to leave and was not willing to stay. The patient wanted to follow-up at the [facility] with oral antibiotics. Patient has been on Ceftinir and metronidazole. Patient had been admitted with positive blood cultures 2. CT of the abdomen and pelvis that was noncontrasted showed concern for multiple liver lesions. Initial biopsy and drainage was refused. The patient has been taking his antibiotics at home. He is supposed to undergo drainage of his abscess is later today. His reason for visiting the emergency department early this morning is related to increasing weakness and associated fall. Patient did fall and hit his head on the counter. Mild abrasion to the left forehead. Patient is complaining of generalized pain without any focal tenderness. There is no deformity. There is no other signs of ecchymosis or abrasion. Pelvis is stable. Upon presentation the patient is febrile and tachycardic. Patient given his declining status is a longer responding to the outpatient antibiotics. Repeat blood cultures and sepsis evaluation is being performed. CT of the head neck have been ordered. CT of the abdomen and pelvis with IV contrast have been ordered if able to tolerate given no previous contrasted study. Urinalysis and chest x-ray have been ordered to further rule out other infectious pathologies. Fluids have been ordered. Patient will require close monitoring within the emergency department and admission for overall declining status likely secondary to worsening bacteremia from liver abscess.
[2018-04-25] MEDS ORDERED: Insulin Human Regular 10 UNIT in 0.9 % Sodium Chloride 10 ML IV ONE (03:18)
[2018-04-25 03:24] LABS: INR 1.2; Prothrombin Time 13.2 Seconds (9.4-12.1)
[2018-04-25 03:26] LABS: Activated Partial Thrombo Time 29.4 Seconds (26.0-36.0)
[2018-04-25 03:35] LABS: Amphetamine Screen,Urine Negative ng/mL (Cutoff=1000); Barbiturate Screen,Urine Negative ng/mL (Cutoff=200); Benzodiazepines Screen,Urine Negative ng/mL (Cutoff=200); Cannabinoid Screen,Urine Negative ng/mL (Cutoff = 50); Cocaine Screen,Urine Negative ng/mL (Cutoff= 300); Opiate Screen,Urine Positive ng/mL (Cutoff=300); Phencyclidine Screen,Urine Negative ng/mL (Cutoff=25)
[2018-04-25 03:45] LABS: Bacteria,Urine None Seen per hpf (None-Few); Clarity,Urine Clear (Clear); Glucose,Urine (UA) >=1000 mg/dL (Normal); Hyaline Casts,Urine None Seen per lpf (None-Few); RBC,Urine 0-3 per hpf (0-3); Specific Gravity,Urine 1.021 (1.010-1.025); Squamous Epithelial Cell,Urine None Seen per lpf (None-Few); Urobilinogen,Urine Normal (Normal)
[2018-04-25 03:47] LABS: Bilirubin,Urine Negative (Negative); Color,Urine Yellow (Yellow)
[2018-04-25 03:48] LABS: Blood,Urine Negative (Negative); Ketones,Urine Negative (Negative)
[2018-04-25 03:49] LABS: Leukocyte Esterase,Urine Negative (Negative); Nitrite,Urine Negative (Negative); Protein,Urine Trace mg/dL (Neg-Trace)
[2018-04-25 03:50] LABS: Troponin I 0.03 ng/mL (< 0.04)
[2018-04-25 03:53] LABS: Alanine Aminotransferase 7 Units/L (7-52); Albumin 3.3 g/dL (3.5-5.7); Albumin/Globulin Ratio 0.9 (1.1-2.2); Alkaline Phosphatase 109 Units/L (34-104); Aspartate Amino Transferase 13 Units/L (13-39); BUN/Creatinine Ratio 15 (6-26); Bilirubin,Direct 0.1 mg/dL (0.0-0.2); Bilirubin,Indirect 0.4 mg/dL (0.0-1.2); Bilirubin,Total 0.5 mg/dL (0.3-1.0); Blood Urea Nitrogen 23 mg/dL (8-23); Calcium 9.2 mg/dL (8.6-10.3); Carbon Dioxide 31 mEq/L (23-29); Chloride 89 mEq/L (98-107); Ethanol < 10 mg/dL (Less than 10); Globulin 3.8 g/dL (2.4-3.5); Glucose 532 mg/dL (70-105); Osmolality,Calculated 294 (280-300); Potassium 4.2 mEq/L (3.5-5.1); Sodium 128 mEq/L (136-145); Total Protein 7.1 g/dL (6.4-8.9); eGFR For Non-African Americans 43 (> 60)
[2018-04-25 04:04] LABS: VBG HCO3 32 mEq/L (21-27); VBG PCO2 59 mmHg (41-51); VBG PH 7.34 pH Units (7.32-7.42); VBG PO2 42 mmHg (25-50)
[2018-04-25] MEDS ORDERED: MetroNIDAZOLE 500 MG/100 ML 500 MG/100 ML BAG IVPB ONE (05:39)
[2018-04-25] MEDS ORDERED: *HR* Dextrose 50 % in Water (Syg) 50 ML SYRINGE IVP PRN (06:10)
[2018-04-25] MEDS ORDERED: Dextrose Gel 15 GM/37.5 ML TUBE PO PRN ×2 (06:10)
[2018-04-25] MEDS ORDERED: D5% in Water 1,000 ML IVC PRN (06:10)
[2018-04-25] MEDS ORDERED: Naloxone 0.4 MG/ML INJ IVP PRN (06:10)
[2018-04-25] MEDS ORDERED: 0.9 % Sodium Chloride 1,000 ML IVC SCH (06:15)
[2018-04-25] MEDS ORDERED: DICLOFENAC SODIUM 2 GM TP PRN (06:18)
--- NOTE | 2018-04-25 07:27 | Internal Med History&Physical ---
Date of Encounter: 04/25/18 Time of Encounter: 07:11 Internal Medicine - H&P: HPI Chief complaint: AMS/Fall History of present illness: Mr. Wagoner is a 73 year old male with a past medical history of diabetes, chronic kidney disease, hyperlipidemia, and dementia who presented to the ED after a fall. Per his , patient has become increasingly weak and fell earlier this evening while using the bathroom. Patient struck his head against the counter during the incident. Patient was hospitalized last March for sepsis with bacteremia the source of which was believed to be a abscesses in the liver. Blood cultures were positive for Klebsiella and Streptococcus at the time and the plan was for further imaging of the liver with possible IR drainage. Patient opted to leave AMA on PO antibiotics despite the risks conveyed to him and had outpatient follow-up at the [facility]. He supposedly has an appointment today with interventional radiology to have the abscess drained. Patient's is concerned that she can no longer care for him at home. Upon initial assessment the patient was febrile and tachycardic. Found to have a blood glucose of 532, lactic acid of 4.6 and leukocytosis 15.2. Patient received 10 units of insulin IV and [address] scan of the head and neck did not reveal any acute abnormality or fracture. Chest x-ray was unremarkable. CT scan of the abdomen and pelvis revealed concern for cystic lesions in the liver adjacent to the gallbladder fossa per radiology. Patient was started empirically on vancomycin, cefepime and Flagyl. Patient is currently hemodynamically stable though alert oriented only 2. requesting social work consult for aid in caring for the patient at home. Past Med Surg Social Fam HX - Past Medical History Medical history: diabetes, hyperlipidemia, renal disease, thyroid disease, other Additional medical history: back and leg pain Psychiatric history: anxiety, depression, PTSD - Past Surgical History Additional surgical history: gallstone removal - Social History Smoking Status: Never smoker Smokeless Tobacco Status: No Alcohol use: recent Drug use: none - Family History Mother Living Status: Hx Family Cancer: Yes Internal Medicine - H&P: Meds Insulin Regular Human [Humulin R] 3 unit SQ QDPC 06/13/16 [History] Terazosin HCl 2 mg PO HS 06/13/16 [History] cloNIDine HCl [CloNIDine HCl] 0.1 mg PO BID 06/13/16 [History] Aspirin 81 mg PO DAILY 04/04/18 [History] Cholecalciferol (Vitamin D3) [Vitamin D3] 2,000 unit PO DAILY 04/04/18 [History] Diclofenac Sodium 2 g TP DAILY PRN 04/04/18 [History] Escitalopram [Lexapro] 20 mg PO DAILY 04/04/18 [History] Hydrocodone/Acetaminophen [[place] 10-325 Tablet] 1 tab PO Q6H PRN 04/04/18 [History] Insulin DETEMIR [Levemir] 25 unit SQ QPM 04/04/18 [History] Lisinopril-HCTZ 10-12.5 [Prinzide 10-12.5] 1 tab PO DAILY 04/04/18 [History] Melatonin [Melatin] 9 mg PO HS 04/04/18 [History] Memantine HCl 10 mg PO BID 04/04/18 [History] Multivitamin [One Daily Multivitamin] 1 tab PO DAILY 04/04/18 [History] Omeprazole [PriLOSEC] 20 mg PO DAILY 04/04/18 [History] Propylene Glycol/Peg 400/Pf [Systane Ultra 0.4-0.3% Eye Drp] 1 drop BOTH EYES TID 04/04/18 [History] Ropinirole HCl [Requip] 1.5 mg PO HS 04/04/18 [History] Simvastatin 40 mg PO QPM 04/04/18 [History] Trazodone HCl 400 mg PO HS PRN 04/04/18 [History] Cefdinir [Omnicef] 300 mg PO BID 04/25/18 [History] metroNIDAZOLE [Metronidazole] 500 mg PO TID 04/25/18 [History] Allergy/AdvReac Type Severity Reaction Status Date / Time Amoxicillin Allergy Rash Verified 04/04/18 10:54 Methadone Allergy Nausea Verified 04/04/18 10:54 gabapentin AdvReac See Verified 04/04/18 10:54 Comments insulin glargine AdvReac See Verified 04/04/18 10:54 [From Lantus] Comments levofloxacin [From Levaquin] AdvReac See Verified 04/04/18 10:54 Comments pregabalin [From Lyrica] AdvReac See Verified 04/04/18 10:54 Comments All Systems PM: A 10-system review of systems was performed and is negative for pertinent f indings except as documented above in the HPI. - Constitutional Constitutional: no chills, no fever(s), no night sweats - EENT Eyes: no change in vision, no discharge, no pain, no photophobia Ears: no ear discharge, no ear pain, no tinnitus Nose, mouth and throat: no dysphagia, no nasal discharge, no neck pain, no sore throat - Cardiovascular Cardiovascular ROS IM: no chest pain, no diaphoresis, no dyspnea, no lightheadedness, no palpitations, no syncope - Respiratory Respiratory: no cough, no dyspnea, no wheezing, no excessive phlegm production - Gastrointestinal Gastrointestinal: no abdominal pain, no diarrhea, no hematemesis, no hematochezia, no melena, no nausea, no vomiting - Musculoskeletal Musculoskeletal ROS IM: no numbness, no tingling - Integumentary Integumentary IM: no rash, no unusual bruising - Neurological Neurological ROS: no confusion, no convulsions, no focal weakness, no numbness, no tingling, no tremor(s) - Hematologic/Lymphatic Hematologic/Lymphatic: no easy bruising - Constitutional Vitals: Temp Pulse Resp BP Pulse Ox 98.3 F 75 19 147/52 100 04/25/18 07:09 04/25/18 07:09 04/25/18 07:09 04/25/18 07:09 04/25/18 07:09 Exam: General: Alert and oriented 2 Skin:Normal color, no rash, no lesions. HEENT:EOM, pupils equal, round and reactive. Cardiovascular:Normal S1 & S2, no rubs, murmurs or gallops. No JVD. Pulse regular. Lungs:Normal breath sounds, no wheezes or crackles. Abdomen:Soft, non-tender, no rigidity. Extremities:No deformity, no edema or tenderness, no joint swelling or clubbing. Neurological:Normal cognition and motor skills. Pulses:Carotid and radial pulses normal +2. Rest of the physical exam is non contributory Internal Med - H&P Results - Labs CBC & Chem 7: 04/25/18 02:56 04/25/18 02:56 Labs: Short CBC 04/25/18 Range/Units 02:56 WBC 15.2 H (4.3-11.1) K/mcL Hgb 9.2 L (12.9-16.9) g/dL Hct 28.7 L (37.5-50.1) % Plt Count 250 (140-400) K/mcL Neutrophils # 14.1 H (1.6-8.9) K/mcL BMP 04/25/18 02:56 Sodium 128 L Potassium 4.2 Chloride 89 L Carbon Dioxide 31 H BUN 23 Creatinine 1.58 H Glucose 532 H* Calcium 9.2 Cardiac Enzymes 04/25/18 Range/Units 02:56 Troponin I 0.03 (< 0.04) ng/mL Liver Function 04/25/18 Range/Units 02:56 Total Bilirubin 0.5 (0.3-1.0) mg/dL Direct Bilirubin 0.1 (0.0-0.2) mg/dL AST 13 (13-39) Units/L ALT 7 (7-52) Units/L Alkaline Phosphatase 109 H (34-104) Units/L Albumin 3.3 L (3.5-5.7) g/dL Urine 04/25/18 Range/Units 03:00 Urine Color Yellow (Yellow) Urine Clarity Clear (Clear) Urine pH 7.0 (5.0-8.0) pH Units Ur Specific [place] 1.021 (1.010-1.025) Urine Protein Trace (Neg-Trace) mg/dL Urine Glucose (UA) >=1000 H (Normal) mg/dL - ABG Interpretation ABG results: 04/25/18 03:59 VBG pH 7.34 VBG pCO2 59 H VBG pO2 42 VBG HCO3 32 H - Impressions ITS Impressions Cervical Spine CT 04/25/18 02:46 IMPRESSION: No acute cervical spine fracture. Multilevel cervical spondylosis. D/ / Antoine Sessions / Antoine Sessions Interpreting Provider: Antoine Sessions Chest X-Ray 04/25/18 02:46 IMPRESSION: Bibasilar subsegmental atelectasis. No lobar consolidation. D/ / Antoine Sessions / Antoine Sessions Interpreting Provider: Antoine Sessions Head CT 04/25/18 02:46 IMPRESSION: No acute intracranial abnormality. Mild chronic small vessel ischemic disease. Small remote lacunar infarct in the posterior limb of the right internal capsule. D/ / Antoine Sessions / Antoine Sessions Interpreting Provider: Antoine Eddy Abdomen/Pelvis CT 04/25/18 02:57 IMPRESSION: 1. Redemonstration of a cluster of low-attenuation cystic lesions in the liver adjacent to the gallbladder fossa. These lesions remain indeterminate and could represent hepatic abscesses in the appropriate clinical setting. Neoplastic process is an additional consideration. MRI of the liver may be helpful for further evaluation. 2. Fluid throughout the colon suggests enteritis with diarrhea. Colonic diverticulosis without obvious acute diverticulitis. 3. Cholelithiasis. 4. Urinary bladder wall thickening, underlying cystitis is not excluded. D/ / Antoine Sessions / Antoine Eddy Interpreting Provider: Antoine Eddy - Assessment and plan (1) Severe sepsis Current Visit: Yes Status: Acute Assessment and plan: Patient presents with fever, leukocytosis and heart rate of 105 in the setting of previously identified hepatic lesion concerning for abscess as sources patient's infection. Found to have a lactic acid of 4.6 meeting criteria for severe sepsis. Patient although remained hemodynamically stable. He received 2 L of fluid boluses in the ED. Patient was started on broad-spectrum empiric antibiotics with vancomycin, Flagyl and cefepime. Blood cultures obtained. -Continue fluid support -Repeat lactic acid -Continue with antibiotics -Follow-up blood cultures -Appreciate ID recommendations (2) Hepatic lesion Current Visit: No Status: Acute Assessment and plan: CT scan of the abdomen shows redemonstration of a cluster of low attenuation cystic lesions in the liver adjacent to the gallbladder fossa. These lesions remain indeterminate and could represent hepatic abscesses. Neoplastic process is an additional consideration. MRI of the liver may be helpful for further evaluation. -IR consult placed for possible drainage. -We will make patient NPO -Appreciate ID recommendations (3) Acute kidney injury Current Visit: No Status: Acute Assessment and plan: Patient presents with acute on chronic kidney injury with a creatinine of 1.58 up from previous baseline of 1.3. Patient received 2 L fluid boluses in the ED. We will continue patient on maintenance fluids. Reassess kidney function in the morning. (4) Lactic acidosis Current Visit: No Status: Acute Assessment and plan: Elevated lactic acid of 4.6. Likely secondary to sepsis. Patient given 2 L of fluids. We will repeat lactic acid. (5) Diabetes mellitus Current Visit: No Status: Chronic Assessment and plan: History of diabetes now with elevated blood glucose of over 500 on admission. Patient received 10 units of insulin in the ED with good response. -Continue Accu-Cheks every 6 and sliding scale coverage. Qualifiers: Diabetes mellitus type: type 2 Diabetes mellitus custodial insulin use: unspecified custodial insulin use status Diabetes mellitus complication status: with hyperglycemia Qualified Code(s): E11.65 - Type 2 diabetes mellitus with hyperglycemia (6) DVT prophylaxis Current Visit: Yes Status: Acute Assessment and plan: Pneumatic compression device - Time Spent With Patient Total time spent is greater than 50% in coordination of care (as documented) at patient's floor/unit and/or counseling patient:
--- NOTE | 2018-04-25 08:08 | Event Note ---
Date of Encounter: 04/25/18 Time of Encounter: 08:05 Patient seen and examined this morning at bedside. No overnight events. Denies new complaints. Afebrile and hemodynamically stable. Mentions that he did not have any symptoms when he came in and " to get my liver stuff taken out and hopefully live ". Currently denies any abdominal pain, back pain or chest pain or shortness of breath. Denies that he fell or hit his head. Exam Constitutional: Vitals as noted. Conversant. No Apparent Distress. Eyes : Sclera white, conjunctiva clear, no lid lag, [place]. ENT : Grossly normal hearing. Oropharyngeal exam unremarkable. Moist mucus membranes. No JVD, no cervical lymphadenopathy. no thyromegaly or mass. Respiratory : Clear to auscultation bilaterally. No accessory muscle use, rales, rhonchi or wheezes Cardiovascular : RRR, +S1, +S2. no murmur, gallop, rubs. No chest wall tenderness GI/Abdominal : Soft, Non-tender, Non-distended, normal bowel sounds, soft, no peritoneal signs. no orgenomegaly or mass appreciated. no hernia. Musculoskeletal: no deformity noted. no edema or cyanosis. warm extremities, pulses palpable and symmetrical in UE/LE. no calf tenderness. Neurological: AO X3, CN II-XII grossly intact, grossly normal motor and sensory exam. Skin: No skin rash, lesions or ulcers noted. Pych: Good insight and judgement. Intact memory. AOx3. A/P Severe sepsis - fever, leukocytosis and tachycardic. Lactic acidosis - with hepatic lesion concerning for abscess as sources. - currently hemodynamically stable. s/p 2 L, empiric antibiotics with vancomycin, Flagyl and cefepime. - NPO. Agrees to get liver biopsy. IR consulted. - f/u Blood cultures obtained. - c/v MIVF - c/w empiric antibiotics - ID consulted Hepatic lesion - CT abdomen redemonstrates of a cluster of low attenuation cystic lesions in the liver adjacent to the gallbladder fossa. Could be hepatic abscesses vs Neoplastic - Agrees to get biopsy/aspirate - IR consulted Acute kidney injury on CKD - baseline of 1.3. - s/p 2 L fluid boluses in the ED. - c/w IVF. Decrease to 75 cc given 1+ pedal edema Lactic acidosis - 4.6 on presentation. Likely secondary to sepsis. - s/p 2 L of fluids. repeat lactic acid 1.5. Diabetes mellitus - History of diabetes now with elevated blood glucose of over 500 on admission. Patient received 10 units of insulin in the ED with good response. -Continue Accu-Cheks every 6 and sliding scale coverage. DVT prophylaxis - EPCD
--- NOTE | 2018-04-25 08:48 | Infectious Disease Consult ---
Date of Encounter: 04/25/18 Time of Encounter: 09:30 Assessment and Plan (1) Severe sepsis Status: Acute Assessment and plan: Patient had 4 SIRS criteria plus lactic acid over 4 Likely secondary to liver abscess and bacteremia (2) Liver abscess Status: Acute Assessment and plan: First noted on the CT abdomen pelvis 04/04/2018; patient also had bacteremia with Klebsiella pneumoniae pansensitive and Streptococcus anginosos and patient declined any further treatment at that point and wanted to be discharged home Repeat CT abdomen and pelvis 04/25/2018 redemonstration of cluster of low- attenuation cystic lesion in the liver adjacent to the gallbladder fossa Status post CT guided drain placement; 30 mL of purulent material drained and sent for analysis Patient started empirically on vancomycin, cefepime and metronidazole Creatinine clearance measured at 57 ml/min Continue vancomycin 1250 mg every 24 hours Continue metronidazole 500 mg IV every 8 hours Continue cefepime 2 g IV every 12 hours Monitor labs and for drug toxicity (3) H/O bacteremia Status: Acute Assessment and plan: 04/04/2018 History of bacteremia 2 out of 2 sets with Klebsiella pneumoniae pansensitive and Streptococcus anginosos pansensitive Repeat cultures 04/05/2018 no growth Repeat blood cultures (4) Acute on chronic renal failure Status: Suspected Assessment and plan: Likely secondary to severe sepsis Creatinine improved to 1.11 Monitor kidney function closely to dose adjust antibiotics based on creatinine clearance Qualifiers: Acute renal failure type: with acute tubular necrosis Chronic kidney disease stage: stage 4 (severe) Qualified Code(s): N17.0 - Acute kidney failure with tubular necrosis; N18.4 - Chronic kidney disease, stage 4 (severe) (5) Allergy to antibiotic Status: Acute Assessment and plan: Allergies to: Amoxicillin - exact reaction not known. Tolerated cephalosporin Levofloxacin - exact reaction unknown (6) Diabetes mellitus Status: Chronic Assessment and plan: Pt has type 2 DM and presented to ED with elevated glucose due to not taking his medications. - Glucose 532 (on admission) - Pt administered 10 units of Insulin IV Qualifiers: Diabetes mellitus type: type 2 Diabetes mellitus assisted insulin use: unspecified assisted insulin use status Diabetes mellitus complication status: with hyperglycemia Qualified Code(s): E11.65 - Type 2 diabetes mellitus with hyperglycemia (7) Lactic acidosis Status: Acute Assessment and plan: Likely secondary to sepsis: - Lactic acid 4.6 on admission - Repeat lactic acid 1.5 Infectious Disease HPI - Data of Consult Patient: known to practice within the last 3 years Consult date: 04/25/18 Requesting Physician: Reyna Odonnell MD [facility] - Consult Narrative Reason for consult: Severe sepsis in a patient with liver abscess as likely source of infection History of present illness: Mr. Wagoner is a 73 year old male that presented to [facility] ED on 04/25 with cc of weakness. The patient fell while at home and struck his head on the bathroom counter top. We are being consulted on 04/25 for sepsis secondary to a known liver abscess that is being treated. HPI: The patient was seen in the hospital in 03/2018 for sepsis with bacteremia secondary to liver abscess. Blood cultures came back (+) for Klebsiella and Streptococcus. IR had planned drainiage of abscess, however, pt left AMA on PO abx and [facility]. The pt took a fall and hit his head on the counter top and presented back to the hospital due to weakness today. The patient was febrile, tachycardic, with elevated leukocytes. In the ED the patient met sepsis criteria, labs and imaging were obtained and are as detailed below. The pt was given 10 units of IV insulin and 2L of fluids. He was also started empirically on vancomycin 1000 mg qd, cefepime 2000 mg q12h r, and flagyl 500 mg q8hr. In the ED the pt had sepsis secondary to known liver abscess. 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 Currently, the patient is resting in bed comfortably with no current complaints or acute events overnight, A&Ox3. CC: Reyna Odonnell MD Past Med Surg Social Fam HX - Past Medical History Medical history: diabetes, hyperlipidemia, renal disease, thyroid disease, other Additional medical history: back and leg pain Psychiatric history: anxiety, depression, PTSD - Past Surgical History Additional surgical history: gallstone removal - Social History Smoking Status: Never smoker Smokeless Tobacco Status: No Alcohol use: recent Drug use: none - Family History Mother Living Status: Hx Family Cancer: Yes Infectious Disease-CN:Meds RX: Insulin Regular Human [Humulin R] 3 unit SQ QDPC 06/13/16 [History] RX: Terazosin HCl 2 mg PO HS 06/13/16 [History] RX: cloNIDine HCl [CloNIDine HCl] 0.1 mg PO BID 06/13/16 [History] RX: Aspirin 81 mg PO DAILY 04/04/18 [History] RX: Cholecalciferol (Vitamin D3) [Vitamin D3] 2,000 unit PO DAILY 04/04/18 [History] RX: Diclofenac Sodium 2 g TP DAILY PRN 04/04/18 [History] RX: Escitalopram [Lexapro] 20 mg PO DAILY 04/04/18 [History] RX: Hydrocodone/Acetaminophen [Smiley 10-325 Tablet] 1 tab PO Q6H PRN 04/04/18 [History] RX: Insulin DETEMIR [Levemir] 25 unit SQ QPM 04/04/18 [History] RX: Lisinopril-HCTZ 10-12.5 [Prinzide 10-12.5] 1 tab PO DAILY 04/04/18 [History] RX: Melatonin [Melatin] 9 mg PO HS 04/04/18 [History] RX: Memantine HCl 10 mg PO BID 04/04/18 [History] RX: Multivitamin [One Daily Multivitamin] 1 tab PO DAILY 04/04/18 [History] RX: Omeprazole [PriLOSEC] 20 mg PO DAILY 04/04/18 [History] RX: Propylene Glycol/Peg 400/Pf [Systane Ultra 0.4-0.3% Eye Drp] 1 drop BOTH EYES TID 04/04/18 [History] RX: Ropinirole HCl [Requip] 1.5 mg PO HS 04/04/18 [History] RX: Simvastatin 40 mg PO QPM 04/04/18 [History] RX: Trazodone HCl 400 mg PO HS PRN 04/04/18 [History] Cefdinir [Omnicef] 300 mg PO BID 04/25/18 [History] metroNIDAZOLE [Metronidazole] 500 mg PO TID 04/25/18 [History] Allergy/AdvReac Type Severity Reaction Status Date / Time Amoxicillin Allergy Rash Verified 04/04/18 10:54 Methadone Allergy Nausea Verified 04/04/18 10:54 gabapentin AdvReac See Verified 04/04/18 10:54 Comments insulin glargine AdvReac See Verified 04/04/18 10:54 [From Lantus] Comments levofloxacin [From Levaquin] AdvReac See Verified 04/04/18 10:54 Comments pregabalin [From Lyrica] AdvReac See Verified 04/04/18 10:54 Comments - Constitutional Constitutional: Present: fatigue. Absent: chills, fever(s) - Cardiovascular Cardiovascular: Absent: chest pain, palpitations - Respiratory Respiratory: Absent: dyspnea Additional comments: - No SOB - Gastrointestinal Gastrointestinal: Absent: abdominal pain, change in bowel habits, hematochezia - Genitourinary Additional comments: - No dysuria - No hematuria - Musculoskeletal Musculoskeletal: Absent: arthralgias Additional comments: - No muscle weakness - Integumentary Additional comments: - No skin changes - No skin lesions - Neurological Neurological: Absent: focal weakness, numbness, tingling, weakness - Psychiatric Psychiatric: Absent: anxiety, depression Exam - Constitutional Vitals: Temp Pulse Resp BP Pulse Ox 98.3 F 75 19 147/52 100 04/25/18 07:09 04/25/18 07:09 04/25/18 07:09 04/25/18 07:09 04/25/18 07:09 General appearance: average body habitus, cooperative, no acute distress - Head Head exam: Present: atraumatic, normal inspection, normocephalic - Eye Eye exam: Present: normal appearance. Absent: conjunctival injection, scleral icterus - ENT ENT exam: Present: normal exam - Neck Neck exam: Present: full ROM, normal inspection. Absent: lymphadenopathy, tenderness - Respiratory Respiratory exam: Present: CTAB. Absent: accessory muscle use, decreased breath sounds, rales, wheezes - Cardiovascular Cardiovascular exam: Present: RRR, +S1, +S2. Absent: gallop - GI/Abdominal GI/Abdominal exam: Present: normal bowel sounds. Absent: tenderness Additional comments: - Slightly distended/rigit RUQ - Extremities Exam Extremities exam: Present: full ROM, normal capillary refill, normal inspection Additional comments: - 2+ pulses upper extremities - diminished pulses lower extremities - Neurological Exam Neurological exam: Present: alert. Absent: no focal deficits - Psychiatric Psychiatric exam: Present: normal mood - Skin Skin exam: Present: normal color. Absent: rash Infectious Disease CN: Results - Labs CBC & Chem 7: 04/26/18 06:43 04/26/18 06:43 Cultures: - Blood cultures pending. Serology: Serology 04/25/18 Range/Units 03:00 Urine Color Yellow (Yellow) Urine Clarity Clear (Clear) Urine pH 7.0 (5.0-8.0) pH Units Ur Specific [place] 1.021 (1.010-1.025) Urine Protein Trace (Neg-Trace) mg/dL Urine Glucose (UA) >=1000 H (Normal) mg/dL Urine Ketones Negative (Negative) mg/dL Urine Blood Negative (Negative) Urine Nitrite Negative (Negative) Urine Bilirubin Negative (Negative) Urine Urobilinogen Normal (Normal) mg/dL Ur Leukocyte Esterase Negative (Negative) Urine Microscopic RBC 0-3 (0-3) per hpf Ur Squamous Epith Cells None Seen (None-Few) per lpf Urine Bacteria None Seen (None-Few) per hpf Hyaline Casts None Seen (None-Few) per lpf Ur Culture Indicated? NO (NO) Consult Discharge Plan - Plan [facility]errals: [facility] [Primary Care Provider] - - Attending Attestation I examined this patient and my medical decision-making was reviewed with the Resident Physician. I agree with the documented findings, disposition and treatment plan as described except to the extent set forth below. Patient is a 73-year-old gentleman known to my service was seen previously by us for bacteremia with Klebsiella pneumoniae that was pansensitive with exception of ampicillin and Streptococcus anginosos that was also pansensitive. Patient also was noted to have a liver mass concerning for abscess. We believe that that was the source of infection. Patient's insisted that the patient does not know anything done and wanted to stay compliant. Patient was on Rocephin and Flagyl. I am not sure if he was discharged on the or all antibiotics were stopped. Patient also known to have multiple antibiotics allergy including amoxicillin and levofloxacin Since admission, MAXIMUM TEMPERATURE 101.2 Fahrenheit, tachycardic and tachypneic. Presenting labs revealed a WBC of 13.2 with 82% neutrophils and no bands. BUN 19, creatinine 1.1 on, glucose 586 and a lactic acid of 4.6. Urinalysis was negative. Blood cultures are obtained and are no growth to date. CT abdomen and pelvis revealed redemonstration of cluster of low-attenuation cystic lesions in the liver adjacent to the gallbladder fossa. These lesions remain indeterminate and could represent hepatic abscesses in the appropriate clinical setting. Neoplastic process an additional consideration. Fluid throughout the colon suggest enteritis with diarrhea. Colonic diverticulosis without obvious acute diverticulitis. CT head and cervical spine with no acute process. Chest x-ray no obvious pneumonia. Patient was started on vancomycin, cefepime and metronidazole we were asked to evaluate the patient's make further recommendations. Review of systems: Noted Physical exam as per above Drain placed. Bloody fluid noted in the bulb. No purulence noted. Assessment and plan: Septic shock likely secondary to bacteremia and liver lesion concerning for abscess Status post drain placement. 30 mL of purulent fluid was removed and sent for diagnosis. Previous cultures were positive for Klebsiella pneumoniae and Streptococcus anginosos Patient was started on broad-spectrum antibiotics including vancomycin, cefepime and metronidazole We will continue current antibiotics until the patient stabilizes and the cultures finalize. Tomorrow we will consider switching the patient to Rocephin and oral metronidazole.
[2018-04-25] MEDS ORDERED: Vancomycin 500 MG in 0.9 % Sodium Chloride Mini Bag 100 ML IVPB ONE (08:53)
[2018-04-25] MEDS: 0.9 % Sodium Chloride 1,000 ML IVC SCH (09:16)
[2018-04-25] MEDS: Aspirin 81 MG TAB.CHEW PO SCH (09:16)
--- NOTE | 2018-04-25 11:51 | Electrocardiograph Report ---
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
[2018-04-25] MEDS ORDERED: Insulin LISPRO 300 UNITS/3 ML VIAL SQ SCH (12:00)
[2018-04-25] MEDS ORDERED: 0.9 % Sodium Chloride 500 ML ONE (12:05)
[2018-04-25] MEDS ORDERED: *HR* FentaNYL (PF) 100 MCG/2 ML VIAL ONE (12:29)
[2018-04-25] MEDS ORDERED: *HR* FentaNYL (PF) 100 MCG/2 ML VIAL IVP ONE (12:31)
[2018-04-25] MEDS: *HR* HYDROcodone/Acet 10/325 mg TABLET PO PRN ×2 (12:48→18:43)
[2018-04-25] MEDS: MetroNIDAZOLE 500 MG/100 ML 500 MG/100 ML BAG IVPB SCH ×2 (12:49→20:04)
[2018-04-25 13:30] LABS: Basophils # 0.1 K/mcL (0.0-0.2); Basophils % 0.5 %; Eosinophils % 0.2 %; Hematocrit 25.4 % (37.5-50.1); Hemoglobin 8.3 g/dL (12.9-16.9); Immature Granulocytes % 0.6 % (0-4); Lymphocytes # 1.4 K/mcL (0.6-4.6); Lymphocytes % 10.4 %; Mean Corpuscular HGB Conc 32.7 g/dL (31.6-35.5); Mean Corpuscular Hemoglobin 28.1 pg (28.0-33.3); Mean Corpuscular Volume 86.1 fL (83.0-100.0); Mean Platelet Volume 11.7 fL (9.4-12.4); Monocytes # 0.8 K/mcL (0.0-1.3); Monocytes % 6.3 %; Neutrophils # 10.8 K/mcL (1.6-8.9); Platelet Count 238 K/mcL (140-400); Red Blood Count 2.95 M/mcL (4.19-5.50); Red Cell Distribution Width 14.3 % (11.5-14.5)
[2018-04-25] MEDS ORDERED: MetroNIDAZOLE 500 MG/100 ML 500 MG/100 ML BAG IVPB SCH (13:30)
[2018-04-25 13:55] LABS: Alanine Aminotransferase 9 Units/L (7-52); Albumin/Globulin Ratio 0.9 (1.1-2.2); Alkaline Phosphatase 95 Units/L (34-104); Aspartate Amino Transferase 19 Units/L (13-39); BUN/Creatinine Ratio 17 (6-26); Bilirubin,Total 0.4 mg/dL (0.3-1.0); Blood Urea Nitrogen 19 mg/dL (8-23); Calcium 8.5 mg/dL (8.6-10.3); Carbon Dioxide 32 mEq/L (23-29); Chloride 100 mEq/L (98-107); Globulin 3.3 g/dL (2.4-3.5); Glucose 82 mg/dL (70-105); Osmolality,Calculated 287 (280-300); Potassium 4.1 mEq/L (3.5-5.1); Sodium 138 mEq/L (136-145); Total Protein 6.3 g/dL (6.4-8.9); eGFR For Non-African Americans > 60 (> 60)
[2018-04-25] MEDS ORDERED: Cefepime HCl 2,000 MG in Water for inj. (sterile) 20 ML 20 ML IVPB SCH (15:00)
[2018-04-25] MEDS: Cefepime HCl 2,000 MG in Water for inj. (sterile) 20 ML 20 ML IVP SCH (15:24)
[2018-04-25] MEDS ORDERED: *HR* Morphine 2 MG/ML SYRINGE IVP ONE (15:35)
[2018-04-25] MEDS ORDERED: Cefepime HCl 2,000 MG in Water for inj. (sterile) 20 ML 20 ML IVP SCH (16:00)
[2018-04-25] MEDS: Insulin LISPRO 300 UNITS/3 ML VIAL SQ SCH ×2 (17:25→20:45)
[2018-04-25] MEDS: rOPINIRole 1 MG TABLET PO SCH (20:03)
[2018-04-26] MEDS: Cefepime HCl 2,000 MG in Water for inj. (sterile) 20 ML 20 ML IVP SCH ×2 (03:19→15:31)
[2018-04-26] MEDS: 0.9 % Sodium Chloride 1,000 ML IVC SCH (03:20)
[2018-04-26] MEDS: MetroNIDAZOLE 500 MG/100 ML 500 MG/100 ML BAG IVPB SCH ×3 (05:42→20:45)
[2018-04-26 07:35] LABS: Basophils # 0.1 K/mcL (0.0-0.2); Basophils % 0.6 %; Eosinophils # 0.1 K/mcL (0.0-0.6); Eosinophils % 0.7 %; Hematocrit 23.2 % (37.5-50.1); Hemoglobin 7.5 g/dL (12.9-16.9); Immature Granulocytes % 0.5 % (0-4); Lymphocytes % 10.2 %; Mean Corpuscular HGB Conc 32.3 g/dL (31.6-35.5); Mean Corpuscular Hemoglobin 27.9 pg (28.0-33.3); Mean Corpuscular Volume 86.2 fL (83.0-100.0); Mean Platelet Volume 12.1 fL (9.4-12.4); Monocytes # 0.4 K/mcL (0.0-1.3); Monocytes % 4.5 %; Neutrophils # 8.1 K/mcL (1.6-8.9); Platelet Count 210 K/mcL (140-400); Red Blood Count 2.69 M/mcL (4.19-5.50); Red Cell Distribution Width 14.4 % (11.5-14.5); Segmented Neutrophils % 83.5 %
[2018-04-26 07:53] LABS: BUN/Creatinine Ratio 15 (6-26); Blood Urea Nitrogen 15 mg/dL (8-23); Calcium 8.5 mg/dL (8.6-10.3); Carbon Dioxide 29 mEq/L (23-29); Chloride 102 mEq/L (98-107); Glucose 243 mg/dL (70-105); Osmolality,Calculated 293 (280-300); Potassium 4.5 mEq/L (3.5-5.1); Sodium 137 mEq/L (136-145); eGFR For Non-African Americans > 60 (> 60)
[2018-04-26] MEDS: Aspirin 81 MG TAB.CHEW PO SCH (08:50)
[2018-04-26] MEDS: Insulin LISPRO 300 UNITS/3 ML VIAL SQ SCH ×4 (08:50→20:50)
[2018-04-26] MEDS: *HR* HYDROcodone/Acet 10/325 mg TABLET PO PRN ×2 (08:50→16:37)
--- NOTE | 2018-04-26 11:01 | Infectious Disease Progress No ---
Date of Encounter: 04/26/18 Time of Encounter: 09:00 - Assessment and Plan (1) Severe sepsis Current Visit: Yes Status: Acute Severe sepsis/borderline septic shock criteria met on admission on 04/25 - 4 SIRS criteria plus lactic acid 4.6 - WBC 15.2, T101.2, HR105, RR16 (04/25) Likely secondary to liver abscess and bacteremia. - Liver abscess possibly from contiguous infection - IR consulted and drained liver abscess on 04/25. - Abscess aspiration analysis - final report pending - Preliminary report shows WBC > 25, and positive for G + cocci - Restart vancomycin 1250 mg q24 hrs on 04/27. The pt does not currently meet sirs/sepsis criteria. - WBC 9.7, T98.7, HR72, RR17 (today 04/26) Today 04/26 BUN 15 (yest 23), Cr 0.98 (yest 1.58) Creatinine Clearance 64 ml/min Beta-hydroxybutryic acid 0.13 (04/25) Troponin I 0.03 (04/25) Blood culture 04/04: (+) Klebsiella pneumoniae, (+) Streptococcus anginosis. Klebsiella pneumoniae: pansensitive with exception of ampicillin. Streptoccous anginosis: pansensitive Blood culture 04/05: No growth Blood culture 04/25: Cultures pending Liver abscess aspiration analysis: Final report pending, preliminary report: WBC many, Bacteria observed G+ cocci CT abd/pelvis 04/04: Amorphous low attentuation areas in liver are indeterminate. CT abd/pelvis 04/25: Redemonstration of cluster of low-attenuation cystic lesions in liver adjacent to gallbladder fossa. 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 Antibiotics received: - Cefepime day 2 - Metronidazole day 2 - Vancomycin day 2 Recommendations: - Continue Cefepime 2g mg IV q12hrs (day 2) - Continue Metronidazole 500 mg IV q8hrs (day 2) - Restart Vancomycin 1250 mg IV q24hrs on 04/27 - Once cultures are finalized, adjust abx course accordingly - Plan to descalate abx therapy to Rocephin, Metronidazole (ultimately based on final culture growth) (2) Liver abscess Current Visit: Yes Status: Acute Pt presented on 04/04 with blood cultures positive for Klebsiella pneumoniae and Streptoccous anginosis. CT abd/pelvis on 04/04 showed amorphous low attentuation areas in the liver. The patient was found to have a liver abscess. At that point the patient and his declined further treatment and were discharged home. The pt presented to the ED again on 04/[address] abd/pelvis showed redemonstration of cluster of low-attenuation cystic lesion in the liver adjacent to the gallbladder fossa. The patient has a liver abscess due to contiguous spread from adjacent structures and likely leading cause of severe s epsis/septic shock. IR was consulted and performed drainage of CT guided liver abscess drainage and drain placement on 04/25. 30 mL of purulent material was drained and sent for analysis. - Preliminary analysis results show WBC and bacteria observed G+ cocci. Creatinine clearance 64 ml/min Antibiotics received: - Cefepime day 2 - Metronidazole day 2 - Vancomycin day 2 Recommendations: - Empiric abx coverage with vancomycin, cefepime, and metronidazole until cultures finalize and abx therapy can be adjusted/deescalated - Continue Cefepime 2g mg q12hrs (day 2) - Continue Metronidazole 500 mg q8hrs (day 2) - Restart Vancomycin 1250 mg q24hrs on 04/27 - Once cultures are finalized, adjust abx course accordingly - Plan to descalate abx therapy to Rocephin, Metronidazole (ultimately based on final culture growth) - Monitor labs and for drug toxicity (3) H/O bacteremia Current Visit: Yes Status: Acute Blood culture 04/04: (+) Klebsiella pneumoniae, (+) Streptococcus anginosis. Klebsiella pneumoniae: pansensitive with exception of ampicillin. Streptoccous anginosis: pansensitive Blood culture 04/05: No growth Repeat Blood culture 04/25: Cultures pending Bacteremia likely secondary to liver abscess. (4) Acute on chronic renal failure Current Visit: No Status: Suspected Likely secondary to severe sepsis Creatinine improved to 0.98 (yest 1.58) Creatinine clearance 64 ml/min (yest 40 ml/min) Monitor kidney function closely to dose adjust antibiotics based on creatinine clearance Qualifiers: Acute renal failure type: with acute tubular necrosis Chronic kidney disease stage: stage 4 (severe) Qualified Code(s): N17.0 - Acute kidney fail ure with tubular necrosis; N18.4 - Chronic kidney disease, stage 4 (severe) (5) Allergy to antibiotic Current Visit: No Status: Acute Allergies to: Amoxicillin - exact reaction not known. Tolerated cephalosporin Levofloxacin - exact reaction unknown The patient is not aware if he has allergies to these medications or adverse reactions to them. (6) Lactic acidosis Current Visit: No Status: Resolved Likely secondary to sepsis: - Lactic acid 4.6 on admission (04/25) - Repeat lactic acid 1.5 (04/25) (7) Diabetes mellitus Current Visit: No Status: Chronic Pt has type 2 DM and presented to ED with elevated glucose due to not taking his medications. - Glucose 243 today (yest 532 04/25) - Manage appropriately Qualifiers: Diabetes mellitus type: type 2 Diabetes mellitus roasterman insulin use: unspecified chcf insulin use status Diabetes mellitus complication status: with hyperglycemia Qualified Code(s): E11.65 - Type 2 diabetes mellitus with hyperglycemia - Subjective Interval history: The patient was seen at bedside resting comfortably. The patient did not have any acute changes overnight. IR performed drainage of the liver abscess on 04/25. The patient had tenderness along incision site where fluid was aspirated for analysis. The patient is having difficulty taking deep breaths due to this. Other than this the patient denies SOB, CP, abdominal pain, fever, chills, sore throat. The patient repeatedly voices desire to be discharged and that he can take his medications at home. Infect Dis PN-Objective Data - Labs CBC & Chem 7: 04/27/18 05:19 04/27/18 05:19 Labs: Laboratory Results - last 24 hr 04/25/18 04/25/18 04/25/18 05:18 11:18 12:59 WBC 13.2 H RBC 2.95 L Hgb 8.3 L Hct 25.4 L MCV 86.1 MCH 28.1 MCHC 32.7 RDW 14.3 Plt Count 238 MPV 11.7 Immature Gran % 0.6 Seg Neutrophils % 82.0 Lymphocytes % 10.4 Monocytes % 6.3 Eosinophils % 0.2 Basophils % 0.5 Neutrophils # 10.8 H Lymphocytes # 1.4 Monocytes # 0.8 Eosinophils # 0.0 Basophils # 0.1 Sodium Potassium Chloride Carbon Dioxide BUN Creatinine Est GFR ( Amer) Est GFR (Non-Af Amer) BUN/Creatinine Ratio Glucose POC Glucose 194 H 108 H Calculated Osmolality Calcium Total Bilirubin AST ALT Alkaline Phosphatase Serum Total Protein Albumin Globulin Albumin/Globulin Ratio 04/25/18 04/25/18 04/25/18 12:59 16:21 20:36 WBC RBC Hgb Hct MCV MCH MCHC RDW Plt Count MPV Immature Gran % Seg Neutrophils % Lymphocytes % Monocytes % Eosinophils % Basophils % Neutrophils # Lymphocytes # Monocytes # Eosinophils # Basophils # Sodium 138 D Potassium 4.1 Chloride 100 Carbon Dioxide 32 H BUN 19 Creatinine 1.11 Est GFR ( Amer) > 60 Est GFR (Non-Af Amer) > 60 BUN/Creatinine Ratio 17 Glucose 82 POC Glucose 243 H 383 H Calculated Osmolality 287 Calcium 8.5 L Total Bilirubin 0.4 AST 19 ALT 9 Alkaline Phosphatase 95 Serum Total Protein 6.3 L Albumin 3.0 L Globulin 3.3 Albumin/Globulin Ratio 0.9 L 04/26/18 04/26/18 06:43 06:43 WBC 9.7 RBC 2.69 L Hgb 7.5 L Hct 23.2 L MCV 86.2 MCH 27.9 L MCHC 32.3 RDW 14.4 Plt Count 210 MPV 12.1 Immature Gran % 0.5 Seg Neutrophils % 83.5 Lymphocytes % 10.2 Monocytes % 4.5 Eosinophils % 0.7 Basophils % 0.6 Neutrophils # 8.1 Lymphocytes # 1.0 Monocytes # 0.4 Eosinophils # 0.1 Basophils # 0.1 Sodium 137 Potassium 4.5 Chloride 102 Carbon Dioxide 29 BUN 15 Creatinine 0.98 Est GFR ( Amer) > 60 Est GFR (Non-Af Amer) > 60 BUN/Creatinine Ratio 15 Glucose 243 H POC Glucose Calculated Osmolality 293 Calcium 8.5 L Total Bilirubin AST ALT Alkaline Phosphatase Serum Total Protein Albumin Globulin Albumin/Globulin Ratio Cultures: Cultures 04/25/18 12:17 Body Fluid Culture - Preliminary Other-Specify in Comments 04/25/18 02:56 Blood Culture - Preliminary Peripheral Venipuncture Culture is incubating and being continuously monitored for growth. Final report to follow. 04/25/18 03:47 Blood Culture - Preliminary Peripheral Venipuncture Culture is incubating and being continuously monitored for growth. Final report to follow. Serology 04/25/18 Range/Units 03:00 Urine Color Yellow (Yellow) Urine Clarity Clear (Clear) Urine pH 7.0 (5.0-8.0) pH Units Ur Specific [place] 1.021 (1.010-1.025) Urine Protein Trace (Neg-Trace) mg/dL Urine Glucose (UA) >=1000 H (Normal) mg/dL Urine Ketones Negative (Negative) mg/dL Urine Blood Negative (Negative) Urine Nitrite Negative (Negative) Urine Bilirubin Negative (Negative) Urine Urobilinogen Normal (Normal) mg/dL Ur Leukocyte Esterase Negative (Negative) Urine Microscopic RBC 0-3 (0-3) per hpf Ur Squamous Epith Cells None Seen (None-Few) per lpf Urine Bacteria None Seen (None-Few) per hpf Hyaline Casts None Seen (None-Few) per lpf Ur Culture Indicated? NO (NO) - Impressions Impressions Liver Abscess Drainage CT 04/25/18 00:00 IMPRESSION: Successful CT guided placement of hepatic abscess drainage catheter. D/ / Audi Campa MD / Audi Campa MD Interpreting Provider: Audi Campa MD Exam - Constitutional Vitals: Temp Pulse Resp BP Pulse Ox 98.7 F 72 17 160/71 94 04/26/18 07:18 04/26/18 07:18 04/26/18 07:18 04/26/18 07:18 04/26/18 09:00 - Additional findings Additional findings: General: A&Ox3, alert, oriented, cooperative, mild distress Constitutional: No fever, chills, fatigue HEENT: atraumatic, normocephalic, normal inspection, absent conjunctival injection Neck: No lymphadenopathy, tendernesss Respiratory: CTAB, absent accessory muscle use, decreased breath sounds, rales, wheezes Cardiovascular: RRR, S1+, S2+, no rubs, murmurs, gallops GI: bowel sounds present, mild abdominal tenderness over drainage site Extremities: 2+ pulses UE, diminished pulses LE Neurological: Alert, no focal deficits Psychiatric: normal mood Skin: normal color, no skin lesions or rashes Consult Discharge Plan - Plan Referrals: [facility] [Primary Care Provider] - - Attending Attestation I examined this patient and my medical decision-making was reviewed with the Resident Physician. I agree with the documented findings, disposition and treatment plan as described except to the extent set forth below.
--- NOTE | 2018-04-26 11:12 | Internal Med Progress Note ---
Hospitalist Progress Note - Encounter Date of Encounter: 04/26/18 Time of Encounter: 11:09 - Subjective Interval History: Patient seen and examined this morning. No acute overnight events. Complain of some right upper quadrant pain. Denies any fevers, chills, nausea, vomiting, diarrhea. Has a DAT drain in place. Serosanguineous. Patient desires to go home. - Exam Vitals: Temp Pulse Resp BP Pulse Ox 98.7 F 72 17 160/71 94 04/26/18 07:18 04/26/18 07:18 04/26/18 07:18 04/26/18 07:18 04/26/18 09:00 Exam: Constitutional: Vitals as noted. Conversant. No Apparent Distress. Respiratory : Clear to auscultation bilaterally. No accessory muscle use, rales, rhonchi or wheezes Cardiovascular : RRR, +S1, +S2. no murmur, gallop, rubs. No chest wall tenderness GI/Abdominal : Soft, Has DAT drain in place with minimal drainage. Tenderness on RUQ, normal bowel sounds, soft, no peritoneal signs. no orgenomegaly or mass appreciated. no hernia. Musculoskeletal: no deformity noted. no edema or cyanosis. warm extremities, pulses palpable and symmetrical in UE/LE. no calf tenderness. Neurological: AO X3, CN II-XII grossly intact, grossly normal motor and sensory exam. Skin: No skin rash, lesions or ulcers noted. - Assessment and Plan (1) Acute kidney injury Current Visit: No Status: Acute (2) Diabetes mellitus Current Visit: No Status: Chronic (3) Lactic acidosis Current Visit: No Status: Acute (4) Hepatic lesion Current Visit: No Status: Acute (5) Severe sepsis Current Visit: Yes Status: Acute (6) DVT prophylaxis Current Visit: Yes Status: Acute - Summary of Assessment and Plan Summary of Assessment and Plan: Severe sepsis - fever, leukocytosis and tachycardic. Lactic acidosis. Now resolved. currently hemodynamically stable. - with hepatic lesion concerning for abscess as sources. s/p drainage with 30 cc purulent material. Has DAT drain in place. - c/w empiric, Flagyl and cefepime. Vancomycin discontinued - f/u Blood cultures and body fluid cultures. - dc IVF - ID/IR following Hepatic lesion - CT abdomen redemonstrates of a cluster of low attenuation cystic lesions in the liver adjacent to the gallbladder fossa. Could be hepatic abscesses vs Neoplastic - drainage wit purulent material - f/u cultures - c/w DAT drain per IR Anemia - Baseline around 8. Stable. No sign of acute bleeding - Monitor for now. - Possible iron deficiency vs anemia of chronic disease. Acute kidney injury on CKD - baseline of 1.3. Now improved with IVF - stop IV fluids Lactic acidosis - 4.6 on presentation. Likely secondary to sepsis. - s/p 2 L of fluids. repeat lactic acid 1.5. Diabetes mellitus - History of diabetes now with elevated blood glucose of over 500 on admission. Patient received 10 units of insulin in the ED with good response. - Continue Accu-Cheks and sliding scale coverage. DVT prophylaxis - EPCD - Time Spent with Patient Total time spent is greater than 50% in coordination of care (as documented) at patient's floor/unit and/or counseling patient: Internal Medicine: Result - Labs CBC & Chem 7: 04/26/18 06:43 04/26/18 06:43 Labs: Short CBC 04/25/18 04/26/18 Range/Units 12:59 06:43 WBC 13.2 H 9.7 (4.3-11.1) K/mcL Hgb 8.3 L 7.5 L (12.9-16.9) g/dL Hct 25.4 L 23.2 L (37.5-50.1) % Plt Count 238 210 (140-400) K/mcL Neutrophils # 10.8 H 8.1 (1.6-8.9) K/mcL BMP 04/25/18 04/26/18 12:59 06:43 Sodium 138 D 137 Potassium 4.1 4.5 Chloride 100 102 Carbon Dioxide 32 H 29 BUN 19 15 Creatinine 1.11 0.98 Glucose 82 243 H Calcium 8.5 L 8.5 L Liver Function 04/25/18 Range/Units 12:59 Total Bilirubin 0.4 (0.3-1.0) mg/dL AST 19 (13-39) Units/L ALT 9 (7-52) Units/L Alkaline Phosphatase 95 (34-104) Units/L Albumin 3.0 L (3.5-5.7) g/dL - ABG Interpretation ABG results: PT/INR, D-dimer PT 13.2 Seconds (9.4-12.1) H 04/25/18 02:56 - Impressions Impressions Liver Abscess Drainage CT 04/25/18 00:00 IMPRESSION: Successful CT guided placement of hepatic abscess drainage catheter. D/ / Audi Campa MD / Audi Campa MD Interpreting Provider: Audi Campa MD Consult Discharge Plan - Plan [facility]errals: [facility] [Primary Care Provider] - (2) Diabetes mellitus Qualifiers: Qualified Code(s): E11.65 - Type 2 diabetes mellitus with hyperglycemia
[2018-04-26] MEDS: traZODone 50 MG TABLET PO PRN (20:41)
[2018-04-26] MEDS: rOPINIRole 1 MG TABLET PO SCH (20:41)
[2018-04-27] MEDS: Cefepime HCl 2,000 MG in Water for inj. (sterile) 20 ML 20 ML IVP SCH ×2 (01:18→13:45)
[2018-04-27] MEDS: *HR* HYDROcodone/Acet 10/325 mg TABLET PO PRN ×3 (01:28→16:03)
[2018-04-27] MEDS: MetroNIDAZOLE 500 MG/100 ML 500 MG/100 ML BAG IVPB SCH ×2 (04:20→12:08)
[2018-04-27 05:44] LABS: Basophils % 0.4 %; Eosinophils # 0.1 K/mcL (0.0-0.6); Eosinophils % 0.9 %; Hematocrit 25.8 % (37.5-50.1); Hemoglobin 8.3 g/dL (12.9-16.9); Immature Granulocytes % 0.8 % (0-4); Lymphocytes # 1.2 K/mcL (0.6-4.6); Lymphocytes % 11.4 %; Mean Corpuscular HGB Conc 32.2 g/dL (31.6-35.5); Mean Corpuscular Hemoglobin 28.2 pg (28.0-33.3); Mean Corpuscular Volume 87.8 fL (83.0-100.0); Mean Platelet Volume 11.8 fL (9.4-12.4); Monocytes # 0.5 K/mcL (0.0-1.3); Monocytes % 4.9 %; Neutrophils # 8.5 K/mcL (1.6-8.9); Platelet Count 231 K/mcL (140-400); Red Blood Count 2.94 M/mcL (4.19-5.50); Red Cell Distribution Width 14.4 % (11.5-14.5); Segmented Neutrophils % 81.6 %
[2018-04-27 06:02] LABS: BUN/Creatinine Ratio 12 (6-26); Blood Urea Nitrogen 12 mg/dL (8-23); Calcium 8.8 mg/dL (8.6-10.3); Carbon Dioxide 30 mEq/L (23-29); Chloride 102 mEq/L (98-107); Glucose 225 mg/dL (70-105); Osmolality,Calculated 291 (280-300); Potassium 4.2 mEq/L (3.5-5.1); Sodium 137 mEq/L (136-145); eGFR For Non-African Americans > 60 (> 60)
[2018-04-27] MEDS ORDERED: *HR* Labetalol 20 MG/4 ML SYRINGE IVP PRN (07:57)
[2018-04-27] MEDS ORDERED: Insulin DETEMIR 100 UNIT/ML X5UNITS SQ ONE (07:59)
[2018-04-27] MEDS ORDERED: Aminoglycoside Consult 1 EACH MC ONE (08:11)
[2018-04-27] MEDS: Insulin LISPRO 300 UNITS/3 ML VIAL SQ SCH ×4 (08:16→20:41)
[2018-04-27] MEDS: Aspirin 81 MG TAB.CHEW PO SCH (08:17)
--- NOTE | 2018-04-27 09:26 | Infectious Disease Progress No ---
Date of Encounter: 04/27/18 Time of Encounter: 09:00 - Assessment and Plan (1) Severe sepsis Current Visit: Yes Status: Acute Severe sepsis/borderline septic shock criteria met on admission on 04/25 - 4 SIRS criteria plus lactic acid 4.6 - WBC 15.2, T101.2, HR105, RR16 (04/25) Likely secondary to liver abscess and bacteremia. - Liver abscess possibly from contiguous infection - IR consulted and drained liver abscess on 04/25. - Abscess aspiration analysis - final report pending - Preliminary report shows WBC > 25, and positive for G + cocci, culture shows no growth at 24 hours - Final report pending The pt does not currently meet sirs/sepsis criteria. - WBC 10.4, T98.7, HR87, RR 17 (today 04/27) - WBC 9.7, T98.7, HR72, RR17 (04/26) Today 04/27 BUN 12 (yest 15), Cr 1.04 (yest 0.98) Creatinine Clearance 60 ml/min Beta-hydroxybutryic acid 0.13 (04/25) Troponin I 0.03 (04/25) Blood culture 04/04: (+) Klebsiella pneumoniae, (+) Streptococcus anginosis. Klebsiella pneumoniae: pansensitive with exception of ampicillin. Streptoccous anginosis: pansensitive Blood culture 04/05: No growth Blood culture 04/25: Cultures pending, no growth as of yet Liver abscess aspiration analysis: Final report pending, preliminary report: WBC many, Bacteria observed G+ cocci, culture: no growth at 48 hrs Acid fast bacilli 04/25: AFB smear Final - no acid fast bacilli observed, AFB culture - mycobacterial cultures are incubated for [address] abd/pelvis 04/04: Amorphous low attentuation areas in liver are indeterminate. CT abd/pelvis 04/25: Redemonstration of cluster of low-attenuation cystic lesions in liver adjacent to gallbladder fossa. 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 It is first assumed that the abscess had similar bacteria to what causes bacteremia on the previous admission We will de-escalate antibiotics to Rocephin 2 g IV every 24 hours for now and add metronidazole 500 mg by mouth 3 times a day while cultures and anaerobic culture finalize We will place power glide and give the patient 2 weeks of IV Rocephin followed b y probably 2 weeks of oral We would have gone in to orals medication but patient is high risk and he is allergic to amoxicillin and levofloxacin which have the higher bioavailability orally. Omnicef has lower bioavailability and was worried about higher failure rate. Recommendation Rocephin plus metronidazole for 2 weeks followed by Omnicef for 2-4 weeks Follow-up with me in clinic in 2-[address] Odonnell and with the catalytic case operator on 2A (2) Liver abscess Current Visit: Yes Status: Acute Pt presented on 04/04 with blood cultures positive for Klebsiella pneumoniae and Streptoccous anginosis. CT abd/pelvis on 04/04 showed amorphous low attentuation areas in the liver. The patient was found to have a liver abscess. At that point the patient and his declined further treatment and were discharged home. The pt presented to the ED again on 04/[address] abd/pelvis showed redemonstration of cluster of low-attenuation cystic lesion in the liver adjacent to the gallbladder fossa. The patient has a liver abscess due to contiguous spread from adjacent structures and likely leading cause of severe sepsis/septic shock. IR was consulted and performed drainage of CT guided liver abscess drainage and drain placement on 04/25. 30 mL of purulent material was drained and sent for analysis. - Preliminary analysis results show WBC and bacteria observed G+ cocci, culture shows no growth at 48 hours - Final report pending Creatinine clearance 60 ml/min Antibiotics received: - Cefepime day 3 - Metronidazole day 3 - Vancomycin day 3 Recommendations: - Empiric abx coverage with vancomycin, cefepime, and metronidazole until cultures finalize and abx therapy can be adjusted/deescalated - Continue Cefepime 2g mg q12hrs (day 3) - Continue Metronidazole 500 mg q8hrs (day 3) - Continue Vancomycin 1250 mg q24hrs (day 3) - Once cultures are finalized, adjust abx course accordingly - Plan to descalate abx therapy to Rocephin, Metronidazole (ultimately based on final culture growth) - Monitor labs and for drug toxicity (3) H/O bacteremia Current Visit: Yes Status: Acute Blood culture 04/04: (+) Klebsiella pneumoniae, (+) Streptococcus anginosis. Klebsiella pneumoniae: pansensitive with exception of ampicillin. Streptoccous anginosis: pansensitive Blood culture 04/05: No growth Repeat Blood culture 04/25: Cultures pending, no growth as of yet Bacteremia likely secondary to liver abscess. Liver aspirate analysis: preliminary analysis shows WBC, bacteria observed G+ cocci, culture shows no growth at 48 hrs (4) Acute on chronic renal failure Current Visit: No Status: Suspected Likely secondary to severe sepsis Creatinine improved to 1.04 (yest 0.98) Creatinine clearance 60 ml/min (yest 64 ml/min) Monitor kidney function closely to dose adjust antibiotics based on creatinine clearance Qualifiers: Acute renal failure type: with acute tubular necrosis Chronic kidney disease stage: stage 4 (severe) Qualified Code(s): N17.0 - Acute kidney fail ure with tubular necrosis; N18.4 - Chronic kidney disease, stage 4 (severe) (5) Allergy to antibiotic Current Visit: No Status: Acute Allergies to: Amoxicillin - exact reaction not known. Tolerated cephalosporin Levofloxacin - exact reaction unknown The patient is not aware if he has allergies to these medications or adverse reactions to them. (6) Lactic acidosis Current Visit: No Status: Resolved Likely secondary to sepsis: - Lactic acid 4.6 on admission (04/25) - Repeat lactic acid 1.5 (04/25) (7) Diabetes mellitus Current Visit: No Status: Chronic Pt has type 2 DM and presented to ED with elevated glucose due to not taking his medications. - Glucose 225 today 04/27 - Glucose 243 04/26 (532 on admission 04/25) - Manage appropriately Qualifiers: Diabetes mellitus type: type 2 Diabetes mellitus fdc insulin use: u nspecified fdc insulin use status Diabetes mellitus complication status: with hyperglycemia Qualified Code(s): E11.65 - Type 2 diabetes mellitus with hyperglycemia - Subjective Interval history: The patient was seen at bedside resting comfortably. The pt seems to be improved clinically. He did not have any acute changes overnight. He has decreased tenderness over the drainage site placed by IR on 04/25. The patient is able to take deeper breaths without pain compared to yesterday. He denies SOB, CP, abdominal pain, fever, chills, sore throat. The pt voices concern again about wanting to be discharged and continue medications at home. Infect Dis PN-Objective Data - Labs CBC & Chem 7: 04/27/18 05:19 04/27/18 05:19 Labs: Laboratory Results - last 24 hr 04/25/18 04/25/18 04/26/18 11:18 16:21 07:16 WBC RBC Hgb Hct MCV MCH MCHC RDW Plt Count MPV Immature Gran % Seg Neutrophils % Lymphocytes % Monocytes % Eosinophils % Basophils % Neutrophils # Lymphocytes # Monocytes # Eosinophils # Basophils # Sodium Potassium Chloride Carbon Dioxide BUN Creatinine Est GFR ( Amer) Est GFR (Non-Af Amer) BUN/Creatinine Ratio Glucose POC Glucose 108 H 243 H 261 H Calculated Osmolality Calcium Vancomycin Trough 04/26/18 04/26/18 04/26/18 11:24 16:36 20:50 WBC RBC Hgb Hct MCV MCH MCHC RDW Plt Count MPV Immature Gran % Seg Neutrophils % Lymphocytes % Monocytes % Eosinophils % Basophils % Neutrophils # Lymphocytes # Monocytes # Eosinophils # Basophils # Sodium Potassium Chloride Carbon Dioxide BUN Creatinine Est GFR ( Amer) Est GFR (Non-Af Amer) BUN/Creatinine Ratio Glucose POC Glucose 366 H 219 H 324 H Calculated Osmolality Calcium Vancomycin Trough 04/27/18 04/27/18 04/27/18 05:19 05:19 05:19 WBC 10.4 RBC 2.94 L Hgb 8.3 L Hct 25.8 L MCV 87.8 MCH 28.2 MCHC 32.2 RDW 14.4 Plt Count 231 MPV 11.8 Immature Gran % 0.8 Seg Neutrophils % 81.6 Lymphocytes % 11.4 Monocytes % 4.9 Eosinophils % 0.9 Basophils % 0.4 Neutrophils # 8.5 Lymphocytes # 1.2 Monocytes # 0.5 Eosinophils # 0.1 Basophils # 0.0 Sodium 137 Potassium 4.2 Chloride 102 Carbon Dioxide 30 H BUN 12 Creatinine 1.04 Est GFR ( Amer) > 60 Est GFR (Non-Af Amer) > 60 BUN/Creatinine Ratio 12 Glucose 225 H POC Glucose Calculated Osmolality 291 Calcium 8.8 Vancomycin Trough 13 H Cultures: Cultures 04/25/18 12:17 Body Fluid Culture - Preliminary Other-Specify in Comments 04/25/18 02:56 Blood Culture - Preliminary Peripheral Venipuncture Culture is incubating and being continuously monitored for growth. Final report to follow. 04/25/18 03:47 Blood Culture - Preliminary Peripheral Venipuncture Culture is incubating and being continuously monitored for growth. Final report to follow. Serology 04/25/18 Range/Units 03:00 Urine Color Yellow (Yellow) Urine Clarity Clear (Clear) Urine pH 7.0 (5.0-8.0) pH Units Ur Specific [place] 1.021 (1.010-1.025) Urine Protein Trace (Neg-Trace) mg/dL Urine Glucose (UA) >=1000 H (Normal) mg/dL Urine Ketones Negative (Negative) mg/dL Urine Blood Negative (Negative) Urine Nitrite Negative (Negative) Urine Bilirubin Negative (Negative) Urine Urobilinogen Normal (Normal) mg/dL Ur Leukocyte Esterase Negative (Negative) Urine Microscopic RBC 0-3 (0-3) per hpf Ur Squamous Epith Cells None Seen (None-Few) per lpf Urine Bacteria None Seen (None-Few) per hpf Hyaline Casts None Seen (None-Few) per lpf Ur Culture Indicated? NO (NO) Exam - Constitutional Vitals: Temp Pulse Resp BP Pulse Ox 98.7 F 87 17 202/84 94 04/27/18 07:48 04/27/18 07:48 04/27/18 07:48 04/27/18 07:48 04/27/18 07:48 - Additional findings Additional findings: General: A&Ox3, alert, oriented, cooperative, no acute distress Constitutional: No fever, chills, fatigue HEENT: atraumatic, normocephalic, normal inspection, absent conjunctival injection Neck: No lymphadenopathy, tendernesss Respiratory: CTAB, absent accessory muscle use, decreased breath sounds, rales, wheezes Cardiovascular: RRR, S1+, S2+, no rubs, murmurs, gallops GI: bowel sounds present, mild abdominal tenderness over drainage site (improved from yesterday) Extremities: 2+ pulses UE, diminished pulses LE Neurological: Alert, no focal deficits Psychiatric: normal mood Skin: normal color, no skin lesions or rashes Consult Discharge Plan - Plan [facility]errals: [facility] [Primary Care Provider] - - Attending Attestation I examined this patient and my medical decision-making was reviewed with the Resident Physician. I agree with the documented findings, disposition and treatment plan as described except to the extent set forth below.
--- NOTE | 2018-04-27 12:20 | Internal Med Progress Note ---
Hospitalist Progress Note - Encounter Date of Encounter: 04/27/18 Time of Encounter: 12:05 - Subjective Interval History: Patient seen and examined this morning. No acute overnight events. minimal right upper quadrant pain. Denies any fevers, chills, nausea, vomiting, diarrhea. Has a DAT drain in place without drainage. Patient admant to go home today. - Exam Vitals: Temp Pulse Resp BP Pulse Ox 98.7 F 87 17 202/84 94 04/27/18 07:48 04/27/18 07:48 04/27/18 07:48 04/27/18 07:48 04/27/18 07:48 Exam: Constitutional: Vitals as noted. Conversant. No Apparent Distress. Respiratory : Clear to auscultation bilaterally. No accessory muscle use, rales, rhonchi or wheezes Cardiovascular : RRR, +S1, +S2. no murmur, gallop, rubs. No chest wall tenderness GI/Abdominal : Soft, Has DAT drain in place with no drainage. minimal tenderness on RUQ, normal bowel sounds, soft, no peritoneal signs. no orgenomegaly or mass appreciated. no hernia. Musculoskeletal: no deformity noted. no edema or cyanosis. warm extremities, pulses palpable and symmetrical in UE/LE. no calf tenderness. Neurological: AO X3, CN II-XII grossly intact, grossly normal motor and sensory exam. Skin: No skin rash, lesions or ulcers noted. - Assessment and Plan (1) Acute kidney injury Current Visit: No Status: Acute (2) Diabetes mellitus Current Visit: No Status: Chronic (3) Lactic acidosis Current Visit: No Status: Resolved (4) Hepatic lesion Current Visit: No Status: Acute (5) Severe sepsis Current Visit: Yes Status: Acute (6) DVT prophylaxis Current Visit: Yes Status: Acute - Summary of Assessment and Plan Summary of Assessment and Plan: Severe sepsis - fever, leukocytosis and tachycardic. Lactic acidosis. Now resolved. currently hemodynamically stable. - with hepatic lesion concerning for abscess as sources. s/p drainage with 30 cc purulent material. Has DAT drain in place. - Previously with Blood cultures positive for Klebsiella Pneumonia and streptococcus anginosis on 04/04. - c/w empiric, Flagyl and cefepime. Vancomycin restarted given GPC on prelim exam. - Blood cultures NGTD, body fluid cultures shows few GPC NGTD. - ID/IR following Hepatic lesion - CT abdomen redemonstrates of a cluster of low attenuation cystic lesions in the liver adjacent to the gallbladder fossa. - s/p IR drainged with purulent material - f/u cultures - c/w DAT drain per IR. Reconsulted if can be taken out. Anemia - Baseline around 8. Stable. No sign of acute bleeding - Monitor for now. - Possible iron deficiency vs anemia of chronic disease. HTN - Home antihypertensive held given sepsis initiatlly - Will resume home lisinopril/hctz. gave one dose of labetalol today. Will hold clonidine and dc on discharge. Possibly BP elevated due to rebound phenomenon. - Monitor renal function Acute kidney injury on CKD - baseline of 1.3. Now improved with IVF - c/w maintainance LR at 75 cc. - strict I/O. Avoid nephrotoxin. Vancomycin dosage per Pharmacy. Lactic acidosis - 4.6 on presentation. Likely secondary to sepsis. - s/p 2 L of fluids. repeat lactic acid 1.5. - resolved. Diabetes mellitus - Start levermir 20 HS - Continue Accu-Cheks and sliding scale coverage. DVT prophylaxis - EPCD - Time Spent with Patient Total time spent is greater than 50% in coordination of care (as documented) at patient's floor/unit and/or counseling patient: Internal Medicine: Result - Labs CBC & Chem 7: 04/27/18 05:19 04/27/18 05:19 Labs: Short CBC 04/27/18 Range/Units 05:19 WBC 10.4 (4.3-11.1) K/mcL Hgb 8.3 L (12.9-16.9) g/dL Hct 25.8 L (37.5-50.1) % Plt Count 231 (140-400) K/mcL Neutrophils # 8.5 (1.6-8.9) K/mcL BMP 04/27/18 05:19 Sodium 137 Potassium 4.2 Chloride 102 Carbon Dioxide 30 H BUN 12 Creatinine 1.04 Glucose 225 H Calcium 8.8 - ABG Interpretation ABG results: PT/INR, D-dimer PT 13.2 Seconds (9.4-12.1) H 04/25/18 02:56 Consult Discharge Plan - Plan [facility]errals: [facility] [Primary Care Provider] - (2) Diabetes mellitus Qualifiers: Diabetes mellitus type: type 2 Diabetes mellitus snf insulin use: unspecified snf insulin use status Diabetes mellitus complication status: with hyperglycemia Qualified Code(s): E11.65 - Type 2 diabetes mellitus with hyperglycemia
[2018-04-27] MEDS: Ringers Solution, Lactated 1,000 ML IVC SCH (13:46)
[2018-04-27] MEDS: metroNIDAZOLE 500 MG TABLET PO SCH (20:59)
[2018-04-27] MEDS: rOPINIRole 1 MG TABLET PO SCH (21:00)
[2018-04-27] MEDS: traZODone 50 MG TABLET PO PRN (21:00)
[2018-04-27] MEDS: Insulin DETEMIR 100 UNIT/ML X5UNITS SQ SCH (21:51)
[2018-04-28] MEDS: Cefepime HCl 2,000 MG in Water for inj. (sterile) 20 ML 20 ML IVP SCH (02:50)
[2018-04-28] MEDS: Ringers Solution, Lactated 1,000 ML IVC SCH (02:51)
[2018-04-28] MEDS: Insulin LISPRO 300 UNITS/3 ML VIAL SQ SCH ×4 (07:40→20:54)
[2018-04-28] MEDS: metroNIDAZOLE 500 MG TABLET PO SCH ×3 (08:53→20:53)
[2018-04-28] MEDS: Aspirin 81 MG TAB.CHEW PO SCH (08:53)
[2018-04-28] MEDS: *HR* HYDROcodone/Acet 10/325 mg TABLET PO PRN ×2 (08:57→15:09)
--- NOTE | 2018-04-28 10:07 | Internal Med Progress Note ---
Hospitalist Progress Note - Encounter Date of Encounter: 04/28/18 Time of Encounter: 10:07 - Subjective Interval History: Patient seen and examined this morning. No acute overnight events. minimal right upper quadrant pain. Denies any fevers, chills, nausea, vomiting, diarrhea. DAT drain remvoed yesterday. - Exam Vitals: Temp Pulse Resp BP Pulse Ox 98.8 F 72 17 161/75 94 04/28/18 07:14 04/28/18 07:14 04/28/18 07:14 04/28/18 07:14 04/28/18 07:14 Exam: Constitutional: Vitals as noted. Conversant. No Apparent Distress. Respiratory : Clear to auscultation bilaterally. No accessory muscle use, rales, rhonchi or wheezes Cardiovascular : RRR, +S1, +S2. no murmur, gallop, rubs. No chest wall tenderness GI/Abdominal : Soft, minimal tenderness on RUQ, normal bowel sounds, soft, no peritoneal signs. no orgenomegaly or mass appreciated. no hernia. Musculoskeletal: no deformity noted. no edema or cyanosis. warm extremities, pulses palpable and symmetrical in UE/LE. no calf tenderness. Neurological: AO X3, CN II-XII grossly intact, grossly normal motor and sensory exam. Skin: No skin rash, lesions or ulcers noted. - Assessment and Plan (1) Acute kidney injury Current Visit: No Status: Acute (2) Diabetes mellitus Current Visit: No Status: Chronic (3) Hepatic lesion Current Visit: No Status: Acute (4) Severe sepsis Current Visit: Yes Status: Acute (5) DVT prophylaxis Current Visit: Yes Status: Acute - Summary of Assessment and Plan Summary of Assessment and Plan: Severe sepsis - fever, leukocytosis and tachycardic. Lactic acidosis. Now resolved. currently hemodynamically stable. - with hepatic lesion concerning for abscess as sources. s/p drainage with 30 cc purulent material. Had DAT drain, now removed - Previously with Blood cultures positive for Klebsiella Pneumonia and streptococcus anginosis on 04/04. - Was on empiric, Flagyl,cefepime and Vancomycin. Now deescalated to Rocephin plus metronidazole. To be continue for 2 weeks followed by Omnicef for 2-4 weeks - Blood cultures NGTD, body fluid cultures shows few GPC NGTD. - ID following - Awaiting Outpatient IV antibiotic arrangements. Wont be setup till monday. Patient understand and agrees to stay. Hepatic lesion - CT abdomen redemonstrates of a cluster of low attenuation cystic lesions in the liver adjacent to the gallbladder fossa. - s/p IR drainged with purulent material - f/u cultures - treatment as above Anemia - Baseline around 8. Stable. No sign of acute bleeding - Monitor for now. - Possible iron deficiency vs anemia of chronic disease. HTN - Home antihypertensive held given sepsis initiatlly - home lisinopril/hctz resume. Will hold clonidine and dc on discharge. Possibly BP elevated due to rebound phenomenon. BP now better - Monitor renal function Acute kidney injury on CKD - baseline of 1.3. Now improved with IVF. stop IVF. - strict I/O. Avoid nephrotoxin. Lactic acidosis - 4.6 on presentation. Likely secondary to sepsis. - s/p 2 L of fluids. repeat lactic acid 1.5. - resolved. Diabetes mellitus - Start levermir 20 HS - Continue Accu-Cheks and sliding scale coverage. DVT prophylaxis - EPCD - Time Spent with Patient Total time spent is greater than 50% in coordination of care (as documented) at patient's floor/unit and/or counseling patient: Internal Medicine: Result - Labs CBC & Chem 7: 04/27/18 05:19 04/27/18 05:19 - ABG Interpretation ABG results: PT/INR, D-dimer PT 13.2 Seconds (9.4-12.1) H 04/25/18 02:56 Consult Discharge Plan - Plan Referrals: [facility] [Primary Care Provider] - (2) Diabetes mellitus Qualifiers: Diabetes mellitus type: type 2 Diabetes mellitus longterm insulin use: unspecified longterm insulin use status Diabetes mellitus complication status: with hyperglycemia Qualified Code(s): E11.65 - Type 2 diabetes mellitus with hyperglycemia
[2018-04-28] MEDS: cefTRIAXone 2,000 MG in Water for inj. (sterile) 20 ML 20 ML IVP SCH (12:42)
[2018-04-28] MEDS: rOPINIRole 1 MG TABLET PO SCH (20:54)
[2018-04-28] MEDS: Insulin DETEMIR 100 UNIT/ML X5UNITS SQ SCH (20:55)
[2018-04-28] MEDS: traZODone 50 MG TABLET PO PRN (22:15)
[2018-04-29] MEDS: *HR* HYDROcodone/Acet 10/325 mg TABLET PO PRN ×2 (06:01→15:31)
[2018-04-29] MEDS: Insulin LISPRO 300 UNITS/3 ML VIAL SQ SCH ×4 (08:47→21:01)
[2018-04-29] MEDS: metroNIDAZOLE 500 MG TABLET PO SCH ×3 (08:50→21:01)
[2018-04-29] MEDS: Aspirin 81 MG TAB.CHEW PO SCH (08:50)
[2018-04-29] MEDS: cefTRIAXone 2,000 MG in Water for inj. (sterile) 20 ML 20 ML IVP SCH (11:15)
--- NOTE | 2018-04-29 13:07 | Internal Med Progress Note ---
Hospitalist Progress Note - Encounter Date of Encounter: 04/29/18 Time of Encounter: 10:54 - Subjective Interval History: Patient seen and examined this morning. Denies any abdominal pain. No any fevers, chills, nausea, vomiting, diarrhea. had hypoglycemia overnight without any symptoms. - Exam Vitals: Temp Pulse Resp BP Pulse Ox 98.3 F 78 16 142/66 95 04/29/18 11:36 04/29/18 11:36 04/29/18 11:36 04/29/18 11:36 04/29/18 11:36 Exam: Constitutional: Vitals as noted. Conversant. No Apparent Distress. Respiratory : Clear to auscultation bilaterally. No accessory muscle use, rales, rhonchi or wheezes Cardiovascular : RRR, +S1, +S2. no murmur, gallop, rubs. No chest wall tenderness GI/Abdominal : Soft, minimal tenderness on RUQ, normal bowel sounds, soft, no peritoneal signs. no orgenomegaly or mass appreciated. no hernia. Musculoskeletal: no deformity noted. no edema or cyanosis. warm extremities, pulses palpable and symmetrical in UE/LE. no calf tenderness. Neurological: AO X3, CN II-XII grossly intact, grossly normal motor and sensory exam. Skin: No skin rash, lesions or ulcers noted. - Assessment and Plan (1) Acute kidney injury Current Visit: No Status: Acute (2) Diabetes mellitus Current Visit: No Status: Chronic (3) Hepatic lesion Current Visit: No Status: Acute (4) Severe sepsis Current Visit: Yes Status: Acute (5) DVT prophylaxis Current Visit: Yes Status: Acute - Summary of Assessment and Plan Summary of Assessment and Plan: Severe sepsis - fever, leukocytosis and tachycardic. Lactic acidosis. Now resolved. currently hemodynamically stable. - with hepatic lesion concerning for abscess as sources. s/p drainage with 30 cc purulent material. Had DAT drain, now removed - Previously with Blood cultures positive for Klebsiella Pneumonia and streptococcus anginosis on 04/04. - Was on empiric, Flagyl,cefepime and Vancomycin. Now deescalated to Rocephin plus metronidazole. To be continue for 2 weeks followed by Omnicef for 2-4 weeks - Blood cultures NGTD, body fluid cultures shows few GPC NGTD from 04/25/18 - ID following - Awaiting Outpatient IV antibiotic arrangements. Wont be setup till monday. Patient understand and agrees to stay. Has IV access. Hypoglycemia - decrease levemir to 10 HS. did not have any symptoms - c/w accucheck. Hepatic lesion - CT abdomen redemonstrates of a cluster of low attenuation cystic lesions in the liver adjacent to the gallbladder fossa. - s/p IR drainged with purulent material - f/u cultures - treatment as above Anemia - Baseline around 8. Stable. No sign of acute bleeding - Monitor for now. - Possible iron deficiency vs anemia of chronic disease. HTN - Home antihypertensive held given sepsis initiatlly - home lisinopril/hctz resume. Will hold clonidine and dc on discharge. Possibly BP elevated due to rebound phenomenon. BP stable. Monitor - Monitor renal function Acute kidney injury on CKD - baseline of 1.3. Now improved with IVF. stop IVF. - strict I/O. Avoid nephrotoxin. Lactic acidosis - 4.6 on presentation. Likely secondary to sepsis. - s/p 2 L of fluids. repeat lactic acid 1.5. - resolved. Diabetes mellitus - levermir decrease to 10 HS - Continue Accu-Cheks and sliding scale coverage. DVT prophylaxis - EPCD - Time Spent with Patient Total time spent is greater than 50% in coordination of care (as documented) at patient's floor/unit and/or counseling patient: Internal Medicine: Result - Labs CBC & Chem 7: 04/27/18 05:19 04/27/18 05:19 - ABG Interpretation ABG results: PT/INR, D-dimer PT 13.2 Seconds (9.4-12.1) H 04/25/18 02:56 Consult Discharge Plan - Plan [facility]: [facility] [Primary Care Provider] - (2) Diabetes mellitus Qualifiers: Diabetes mellitus type: type 2 Diabetes mellitus care home insulin use: uns pecified care home insulin use status Diabetes mellitus complication status: with hyperglycemia Qualified Code(s): E11.65 - Type 2 diabetes mellitus with hyperglycemia
[2018-04-29] MEDS: rOPINIRole 1 MG TABLET PO SCH (17:00)
[2018-04-29] MEDS ORDERED: rOPINIRole 1 MG TABLET PO ONE (21:00)
[2018-04-29] MEDS: Insulin DETEMIR 100 UNIT/ML X5UNITS SQ SCH (21:01)
[2018-04-29] MEDS: traZODone 50 MG TABLET PO PRN (22:29)
[2018-04-30] MEDS: *HR* HYDROcodone/Acet 10/325 mg TABLET PO PRN ×4 (04:25→23:30)
[2018-04-30 06:09] LABS: Basophils # 0.1 K/mcL (0.0-0.2); Basophils % 0.6 %; Eosinophils # 0.2 K/mcL (0.0-0.6); Eosinophils % 2.1 %; Hematocrit 22.4 % (37.5-50.1); Hemoglobin 7.5 g/dL (12.9-16.9); Immature Granulocytes % 0.7 % (0-4); Lymphocytes # 1.1 K/mcL (0.6-4.6); Lymphocytes % 12.9 %; Mean Corpuscular HGB Conc 33.5 g/dL (31.6-35.5); Mean Corpuscular Hemoglobin 28.4 pg (28.0-33.3); Mean Corpuscular Volume 84.8 fL (83.0-100.0); Monocytes # 0.5 K/mcL (0.0-1.3); Monocytes % 5.7 %; Neutrophils # 6.8 K/mcL (1.6-8.9); Platelet Count 251 K/mcL (140-400); Red Blood Count 2.64 M/mcL (4.19-5.50); Red Cell Distribution Width 14.6 % (11.5-14.5)
[2018-04-30 06:25] LABS: BUN/Creatinine Ratio 14 (6-26); Blood Urea Nitrogen 15 mg/dL (8-23); Calcium 8.8 mg/dL (8.6-10.3); Carbon Dioxide 36 mEq/L (23-29); Chloride 101 mEq/L (98-107); Glucose 57 mg/dL (70-105); Osmolality,Calculated 293 (280-300); Potassium 3.4 mEq/L (3.5-5.1); Sodium 142 mEq/L (136-145); eGFR For Non-African Americans > 60 (> 60)
[2018-04-30] MEDS: Aspirin 81 MG TAB.CHEW PO SCH (07:47)
[2018-04-30] MEDS: metroNIDAZOLE 500 MG TABLET PO SCH ×3 (07:47→20:13)
[2018-04-30] MEDS: Insulin LISPRO 300 UNITS/3 ML VIAL SQ SCH ×4 (07:48→20:20)
--- NOTE | 2018-04-30 08:38 | Infectious Disease Progress No ---
Date of Encounter: 04/30/18 Time of Encounter: 09:00 - Assessment and Plan (1) Severe sepsis Current Visit: Yes Status: Acute Severe sepsis/borderline septic shock criteria met on admission on 04/25 - 4 SIRS criteria plus lactic acid 4.6 - WBC 15.2, T101.2, HR105, RR16 (04/25) Likely secondary to liver abscess and bacteremia. - Liver abscess possibly from contiguous infection - IR consulted and drained liver abscess on 04/25. - Abscess aspiration analysis - final report pending - Preliminary report shows WBC > 25, and positive for G + cocci, culture shows no growth at 24 hours - Final report pending The pt does not currently meet sirs/sepsis criteria. - WBC 10.4, T98.7, HR87, RR 17 (today 04/27) - WBC 9.7, T98.7, HR72, RR17 (04/26) Today 04/30 BUN 15 (on 04/27 BUN 12 ), Cr 1.04 (on 04/25 Cr 1.04) Creatinine Clearance 62 ml/min Beta-hydroxybutryic acid 0.13 (04/25) Troponin I 0.03 (04/25) Blood culture 04/04: (+) Klebsiella pneumoniae, (+) Streptococcus anginosis. Klebsiella pneumoniae: pansensitive with exception of ampicillin. Streptoccous anginosis: pansensitive Blood culture 04/05: No growth Blood culture 04/25: No growth (final) Liver abscess aspiration analysis: culture showed no growth, additional testing performed (anaerobic culture) Acid fast bacilli 04/25: AFB smear Final - no acid fast bacilli observed, AFB culture - mycobacterial cultures are incubated for 8 weeks Anaerobic culture 04/25: Final - no anaerobes observed CT abd/pelvis 04/04: Amorphous low attentuation areas in liver are indeterminate. CT abd/pelvis 04/25: Redemonstration of cluster of low-attenuation cystic lesions in liver adjacent to gallbladder fossa. 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 Antibiotics received: - Ceftriaxone day 3 (started on 04/28) - Metronidazole day 4 (started on 04/27) - Cefepime DC 04/27 - Metronidazole IV DC 04/27 - Vancomycin DC 04/27 Recommendations: - Cultures came back negative for growth - Powerglide placed on right arm - Rocephin 2g IV q24 hrs for 2 weeks (started on 04/28) - Metronidazole 500 mg PO q8hrs for 2 weeks (started on 04/27) - Omnicef for 2-4 weeks followed by 2 weeks of Rocephin + Metronidazole - Follow up with Infectious disease in clinic in 2-3 weeks (2) Liver abscess Current Visit: Yes Status: Acute Pt presented on 04/04 with blood cultures positive for Klebsiella pneumoniae and Streptoccous anginosis. CT abd/pelvis on 04/04 showed amorphous low attentuation areas in the liver. The patient was found to have a liver abscess. At that point the patient and his declined further treatment and were discharged home. The pt presented to the ED again on 04/[address] abd/pelvis showed redemonstration of cluster of low-attenuation cystic lesion in the liver adjacent to the gallbladder fossa. The patient has a liver abscess due to contiguous spread from adjacent structures and likely leading cause of severe sepsis/septic shock. IR was consulted and performed drainage of CT guided liver abscess drainage and drain placement on 04/25. 30 mL of purulent material was drained and sent for analysis. Drain removed. - Culture showed no growth, additional testing needed (anaerobic culture) - Final Anaerobic culture showed no growth Creatinine clearance 62 ml/min Antibiotics received: - Ceftriaxone day 3 (started on 04/28) - Metronidazole day 4 (started on 04/27) - Cefepime DC 04/27 - Metronidazole IV DC 04/27 - Vancomycin DC 04/27 Recommendations: - Cultures came back negative for growth - Powerglide placed on right arm - Rocephin 2g IV q24 hrs for 2 weeks (started on 04/28) - Metronidazole 500 mg PO q8hrs for 2 weeks (started on 04/27) - Omnicef for 2-4 weeks followed by 2 weeks of Rocephin + Metronidazole - Follow up with Infectious disease in clinic in 2-3 weeks (3) H/O bacteremia Current Visit: Yes Status: Acute Blood culture 04/04: (+) Klebsiella pneumoniae, (+) Streptococcus anginosis. Klebsiella pneumoniae: pansensitive with exception of ampicillin. Streptoccous anginosis: pansensitive Blood culture 04/05: No growth Repeat Blood culture 04/25: No growth Bacteremia likely secondary to liver abscess. Liver aspirate analysis: preliminary analysis cultured no growth, additional anaerobic testing needed also showed no growth (4) Acute on chronic renal failure Current Visit: No Status: Suspected Likely secondary to severe sepsis Creatinine improved to 1.04 (Cr on 04/25 also 1.04) Creatinine clearance 62 ml/min (on 04/25 Cl Cl 60 ml/min) Monitor kidney function closely to dose adjust antibiotics based on creatinine clearance Qualifiers: Acute renal failure type: with acute tubular necrosis Chronic kidney disease stage: stage 4 (severe) Qualified Code(s): N17.0 - Acute kidney failure with tubular necrosis; N18.4 - Chronic kidney disease, stage 4 (severe) (5) Allergy to antibiotic Current Visit: No Status: Acute Allergies to: Amoxicillin - exact reaction not known. Tolerated cephalosporin Levofloxacin - exact reaction unknown The patient is not aware if he has allergies to these medications or adverse reactions to them. (6) Diabetes mellitus Current Visit: No Status: Chronic Pt has type 2 DM and presented to ED with elevated glucose due to not taking his medications. - Glucose 225 today 04/27 - Glucose 243 04/26 (532 on admission 04/25) - Manage appropriately Qualifiers: Diabetes mellitus type: type 2 Diabetes mellitus residential substance abuse counselor insulin use: unspecified intermediate insulin use status Diabetes mellitus complication status: with hyperglycemia Qualified Code(s): E11.65 - Type 2 diabetes mellitus with hyperglycemia - Subjective Interval history: The patient was seen at bedside resting comfortably. The pt seems to be improved clinically. He did not have any acute changes overnight. He has decreased tenderness over surgical site and DAT drain has been removed. No erythema or swelling or signs of infection noted around incision site. Pt does denies SOB, CP, abdominal pain, fever, chills, sore throat. Pt is hemodynamically stable and ready for discharge. Infect Dis PN-Objective Data - Labs CBC & Chem 7: 04/30/18 05:49 04/30/18 05:49 Labs: Laboratory Results - last 24 hr 04/29/18 04/29/18 04/29/18 06:49 11:34 15:07 WBC RBC Hgb Hct MCV MCH MCHC RDW Plt Count MPV Immature Gran % Seg Neutrophils % Lymphocytes % Monocytes % Eosinophils % Basophils % Neutrophils # Lymphocytes # Monocytes # Eosinophils # Basophils # Sodium Potassium Chloride Carbon Dioxide BUN Creatinine Est GFR ( Amer) Est GFR (Non-Af Amer) BUN/Creatinine Ratio Glucose POC Glucose 206 H 160 H 340 H Calculated Osmolality Calcium 04/29/18 04/30/18 04/30/18 20:06 05:49 05:49 WBC 8.7 RBC 2.64 L Hgb 7.5 L Hct 22.4 L MCV 84.8 MCH 28.4 MCHC 33.5 RDW 14.6 H Plt Count 251 MPV 11.0 Immature Gran % 0.7 Seg Neutrophils % 78.0 Lymphocytes % 12.9 Monocytes % 5.7 Eosinophils % 2.1 Basophils % 0.6 Neutrophils # 6.8 Lymphocytes # 1.1 Monocytes # 0.5 Eosinophils # 0.2 Basophils # 0.1 Sodium 142 Potassium 3.4 L Chloride 101 Carbon Dioxide 36 H BUN 15 Creatinine 1.04 Est GFR ( Amer) > 60 Est GFR (Non-Af Amer) > 60 BUN/Creatinine Ratio 14 Glucose 57 L POC Glucose 388 H Calculated Osmolality 293 Calcium 8.8 04/30/18 06:45 WBC RBC Hgb Hct MCV MCH MCHC RDW Plt Count MPV Immature Gran % Seg Neutrophils % Lymphocytes % Monocytes % Eosinophils % Basophils % Neutrophils # Lymphocytes # Monocytes # Eosinophils # Basophils # Sodium Potassium Chloride Carbon Dioxide BUN Creatinine Est GFR ( Amer) Est GFR (Non-Af Amer) BUN/Creatinine Ratio Glucose POC Glucose 64 L Calculated Osmolality Calcium Cultures: Cultures 04/25/18 12:17 Body Fluid Culture - Preliminary Other-Specify in Comments 04/25/18 02:56 Blood Culture - Final Peripheral Venipuncture No growth. Final report. 04/25/18 03:47 Blood Culture - Final Peripheral Venipuncture No growth. Final report. 04/25/18 12:17 Anaerobic Culture - Preliminary Other-Specify in Comments At this time, no anaerobic growth is present. The culture will be finalized after 5 days of incubation. 04/25/18 12:17 Acid Fast Stain - Final Other-Specify in Comments Serology 04/25/18 Range/Units 03:00 Urine Color Yellow (Yellow) Urine Clarity Clear (Clear) Urine pH 7.0 (5.0-8.0) pH Units Ur Specific [place] 1.021 (1.010-1.025) Urine Protein Trace (Neg-Trace) mg/dL Urine Glucose (UA) >=1000 H (Normal) mg/dL Urine Ketones Negative (Negative) mg/dL Urine Blood Negative (Negative) Urine Nitrite Negative (Negative) Urine Bilirubin Negative (Negative) Urine Urobilinogen Normal (Normal) mg/dL Ur Leukocyte Esterase Negative (Negative) Urine Microscopic RBC 0-3 (0-3) per hpf Ur Squamous Epith Cells None Seen (None-Few) per lpf Urine Bacteria None Seen (None-Few) per hpf Hyaline Casts None Seen (None-Few) per lpf Ur Culture Indicated? NO (NO) 04/25 anaerobic culture final report is negative for any anaerobes. Exam - Constitutional Vitals: Temp Pulse Resp BP Pulse Ox 97.5 F L 85 17 148/77 95 04/30/18 06:48 04/30/18 06:48 04/30/18 06:48 04/30/18 06:48 04/30/18 06:48 - Additional findings Additional findings: General: A&Ox3, alert, oriented, cooperative, no acute distress Constitutional: No fever, chills, fatigue HEENT: atraumatic, normocephalic, normal inspection, absent conjunctival injection Neck: No lymphadenopathy, tendernesss Respiratory: CTAB, absent accessory muscle use, decreased breath sounds, rales, wheezes Cardiovascular: RRR, S1+, S2+, no rubs, murmurs, gallops GI: bowel sounds present, mild abdominal tenderness over drainage site (improved from yesterday) Extremities: 2+ pulses UE, diminished pulses LE Neurological: Alert, no focal deficits Psychiatric: normal mood Skin: normal color, no skin lesions or rashes Consult Discharge Plan - Plan [facility]errals: [facility] [Primary Care Provider[facility] - 05/07/18 10:15 am (Please follow up as schedule...) Prescriptions: cefTRIAXone [Rocephin] 2,000 mg IVPB DAILY 14 Days #14 vial RX: metroNIDAZOLE [Flagyl] 500 mg PO TID 14 Days #42 tablet - Attending Attestation I examined this patient and my medical decision-making was reviewed with the Resident Physician. I agree with the documented findings, disposition and treatment plan as described except to the extent set forth below.
--- NOTE | 2018-04-30 09:15 | Discharge Summary ---
- NOTES TO OUTPATIENT PROVIDER Notes to Outpatient Provider: Needs follow-up with infectious disease. Discharged on 2 weeks of Rocephin and metronidazole for hepatic abscess. Longer acting Insulin dose decreased due to hypoglycemia. Clonidine also held for now. Will need further workup for his anemia. Orders not resulted at time of discharge: Pending orders 04/25/18 12:17 AFB Culture, Body Fluid [TB] Stat AFB Smear [TB] Stat Culture,Anaerobic [RM] Routine Culture,Body Fluid [RM] Routine Date of Encounter: 04/30/18 Time of Encounter: 09:14 - Discharge Diagnosis (1) Acute kidney injury Priority: Secondary Status: Acute (2) Diabetes mellitus Priority: Secondary Status: Chronic Qualifiers: Diabetes mellitus type: type 2 Diabetes mellitus halfway insulin use: unspecified halfway insulin use status Diabetes mellitus complication status: with hyperglycemia Qualified Code(s): E11.65 - Type 2 diabetes mellitus with hyperglycemia (3) Severe sepsis Priority: Primary Status: Acute (4) DVT prophylaxis Priority: Secondary Status: Acute (5) Hypoglycemia Priority: Secondary Status: Acute (6) Anemia Priority: Secondary Status: Acute Qualifiers: Other causes of anemia: chronic disease, other Qualified Code(s): D63.8 - Anemia in other chronic diseases classified elsewhere (7) Elevated lactic acid level Priority: Primary Status: Acute (8) H/O bacteremia Priority: Secondary Status: Acute (9) Liver abscess Priority: Primary Status: Acute Hospital course: Mr. Wagoner is a 73 year old male with past medical history of diabetes, CKD, hyperlipidemia, dementia was recently admitted and found to have blood cultures was positive for Klebsiella and Streptococcus with liver lesions who left AMA on by mouth antibiotics was readmitted as he wanted to get his ' liver stuff fixed and not wanting to '. Patient had signs of sepsis initially with lactic acidosis and tachycardia Patient underwent CT-guided drainage of hepatic abscess with 30 mL of pedal material drained. Patient's a CAD resolved with IV fluids. Patient had episode of hypoglycemia with hypoglycemic unawareness. His insulin doses were decreased. Patient also has anemia possibly related to anemia of chronic disease or iron deficiency. Patient's clonidine was held as well as lisinopril and HCTZ because of MANN. Patient's lisinopril/CT she was resumed and his blood pressure was controlled. Given clonidine causing rebound hypertension. Hold it for now. Blood cultures and cultures from the liver drainage did not grow any organisms. Patient would be arranged to discharge with IV Rocephin for 2 weeks along with metronidazole followed by Omnicef for 2- 4 weeks. Discharge discussed with: patient, nurse, staffing consultant - Time Spent with Patient Total time spent providing and/or coordinating discharge services: Greater than 30 minutes (39) - Discharge Medications Prescriptions: cefTRIAXone [Rocephin] 2,000 mg IVPB DAILY 14 Days #14 vial metroNIDAZOLE [Flagyl] 500 mg PO TID 14 Days #42 tablet Home Medications: Insulin Regular Human [Humulin R] 3 unit SQ TIDWM 06/13/16 [History] Terazosin HCl 2 mg PO HS 06/13/16 [History] Aspirin 81 mg PO DAILY 04/04/18 [History] Cholecalciferol (Vitamin D3) [Vitamin D3] 2,000 unit PO DAILY 04/04/18 [History] Diclofenac Sodium 2 g TP DAILY PRN 04/04/18 [History] Escitalopram [Lexapro] 20 mg PO DAILY 04/04/18 [History] Hydrocodone/Acetaminophen [[place] 10-325 Tablet] 1 tab PO Q6H PRN 04/04/18 [History] Lisinopril-HCTZ 10-12.5 [Prinzide 10-12.5] 1 tab PO DAILY 04/04/18 [History] Melatonin [Melatin] 9 mg PO HS 04/04/18 [History] Memantine HCl 10 mg PO BID 04/04/18 [History] Multivitamin [One Daily Multivitamin] 1 tab PO DAILY 04/04/18 [History] Omeprazole [PriLOSEC] 20 mg PO DAILY 04/04/18 [History] Propylene Glycol/Peg 400/Pf [Systane Ultra 0.4-0.3% Eye Drp] 1 drop BOTH EYES TID 04/04/18 [History] Ropinirole HCl [Requip] 1.5 mg PO HS 04/04/18 [History] Simvastatin 40 mg PO QPM 04/04/18 [History] Trazodone HCl 400 mg PO HS PRN 04/04/18 [History] cefTRIAXone [Rocephin] 2,000 mg IVPB DAILY 14 Days #14 vial 04/29/18 [Rx] Insulin DETEMIR [Levemir] 15 unit SQ QPM #0 04/30/18 [Rx] metroNIDAZOLE [Flagyl] 500 mg PO TID 14 Days #42 tablet 04/30/18 [Rx] Allergies/Adverse Reactions: Allergy/AdvReac Type Severity Reaction Status Date / Time Amoxicillin Allergy Rash Verified 04/04/18 10:54 Methadone Allergy Nausea Verified 04/04/18 10:54 gabapentin AdvReac See Verified 04/04/18 10:54 Comments insulin glargine AdvReac See Verified 04/04/18 10:54 [From Lantus] Comments levofloxacin [From Levaquin] AdvReac See Verified 04/04/18 10:54 Comments pregabalin [From Lyrica] AdvReac See Verified 04/04/18 10:54 Comments Date of admission: 04/25/18 06:10 [facility] care physician: [facility] Consults: 04/25/18 06:17 Consult to Infectious Diseases [CONS] Routine Consulting Provider: Infectious Disease [place] Reason for Consult: Severe Sepsis in a patient with liver abscess as likely source of infection Call Completed: No 04/25/18 06:35 Consult to Interventional Radiology [CONS] Routine Consulting Provider: Radiology Interventional [place] Reason for Consult: Concern for liver abscess requiring possible drainage. Call Completed: No 04/25/18 07:16 Consult to Acoustical Tile Carpenters Supervisor [CONS] Routine Reason for SW Consult: Discharge planning, possibly needs placement 04/25/18 10:13 Consult to Physical Therapy [CONS] Routine Comment: Evaluate, develop and implement POC Reason for Consult: multiple falls at home Does patient have active BEDREST order?: No Is patient medically & hemodynamically stable?: Yes Patient assessed for mobility or mobilized this visit?: Yes 04/25/18 10:14 Consult to Occupational Therapy [CONS] Routine Comment: Evaluate, develop and implement POC Reason for Consult: multiple falls at home, dischare planning Does patient have active BEDREST order?: No Is patient medically & hemodynamically stable?: Yes Patient assessed for mobility or mobilized this visit?: Yes 04/27/18 12:24 Consult to Interventional Radiology [CONS] Routine Consulting Provider: Radiology Interventional [place] Reason for Consult: evaluate for DAT drain removal Call Completed: Yes 04/27/18 16:00 Consult to Invasive Line Access Team [CONS] Routine Reason for Consult: HOME ATB Line Type: EPIV Discharging clinician: Purav T Odonnell - Constitutional Vitals: Temp Pulse Resp BP Pulse Ox 97.5 F L 85 17 148/77 95 04/30/18 06:48 04/30/18 06:48 04/30/18 06:48 04/30/18 06:48 04/30/18 06:48 Exam: Constitutional: Vitals as noted. Conversant. No Apparent Distress. Respiratory : Clear to auscultation bilaterally. No accessory muscle use, rales, rhonchi or wheezes Cardiovascular : RRR, +S1, +S2. no murmur, gallop, rubs. No chest wall tenderness GI/Abdominal : Soft, minimal tenderness on RUQ, normal bowel sounds, soft, no peritoneal signs. no orgenomegaly or mass appreciated. no hernia. Musculoskeletal: no deformity noted. no edema or cyanosis. warm extremities, pulses palpable and symmetrical in UE/LE. no calf tenderness. Neurological: AO X3, CN II-XII grossly intact, grossly normal motor and sensory exam. Skin: No skin rash, lesions or ulcers noted. - Patient Status Disposition: Home Health Service Condition: Fair - Discharge Instructions Follow Up With: [facility] [Primary Care Provider] - - Diet and Activity Activity: increase activity as tolerated
--- NOTE | 2018-04-30 09:22 | Physician Discharge Referral ---
Home Health/Hosp Referral Info Transfer to: Home Health - Diagnosis (1) Acute kidney injury Status: Acute (2) Diabetes mellitus Status: Chronic (3) Severe sepsis Status: Acute (4) DVT prophylaxis Status: Acute (5) Hypoglycemia Status: Acute (6) Anemia Status: Acute (7) Elevated lactic acid level Status: Acute (8) H/O bacteremia Status: Acute (9) Liver abscess Status: Acute - Respiratory Orders Smoking Cessation: Smoking cessation has been advised. For more information, call the [place] [employer] Quit Line at 4-723-EAXA-NOW. - Services Needed Following services are medically necessary services: Nursing, Home Infusion - Transfer Medications Prescriptions: cefTRIAXone [Rocephin] 2,000 mg IVPB DAILY 14 Days #14 vial metroNIDAZOLE [Flagyl] 500 mg PO TID 14 Days #42 tablet Home Medications: Insulin Regular Human [Humulin R] 3 unit SQ TIDWM 06/13/16 [History] Terazosin HCl 2 mg PO HS 06/13/16 [History] Aspirin 81 mg PO DAILY 04/04/18 [History] Cholecalciferol (Vitamin D3) [Vitamin D3] 2,000 unit PO DAILY 04/04/18 [History] Diclofenac Sodium 2 g TP DAILY PRN 04/04/18 [History] Escitalopram [Lexapro] 20 mg PO DAILY 04/04/18 [History] Hydrocodone/Acetaminophen [[place] 10-325 Tablet] 1 tab PO Q6H PRN 04/04/18 [History] Lisinopril-HCTZ 10-12.5 [Prinzide 10-12.5] 1 tab PO DAILY 04/04/18 [History] Melatonin [Melatin] 9 mg PO HS 04/04/18 [History] Memantine HCl 10 mg PO BID 04/04/18 [History] Multivitamin [One Daily Multivitamin] 1 tab PO DAILY 04/04/18 [History] Omeprazole [PriLOSEC] 20 mg PO DAILY 04/04/18 [History] Propylene Glycol/Peg 400/Pf [Systane Ultra 0.4-0.3% Eye Drp] 1 drop BOTH EYES TID 04/04/18 [History] Ropinirole HCl [Requip] 1.5 mg PO HS 04/04/18 [History] Simvastatin 40 mg PO QPM 04/04/18 [History] Trazodone HCl 400 mg PO HS PRN 04/04/18 [History] cefTRIAXone [Rocephin] 2,000 mg IVPB DAILY 14 Days #14 vial 04/29/18 [Rx] Insulin DETEMIR [Levemir] 15 unit SQ QPM #0 04/30/18 [Rx] metroNIDAZOLE [Flagyl] 500 mg PO TID 14 Days #42 tablet 04/30/18 [Rx] Allergies/Adverse Reactions: Allergy/AdvReac Type Severity Reaction Status Date / Time Amoxicillin Allergy Rash Verified 04/04/18 10:54 Methadone Allergy Nausea Verified 04/04/18 10:54 gabapentin AdvReac See Verified 04/04/18 10:54 Comments insulin glargine AdvReac See Verified 04/04/18 10:54 [From Lantus] Comments levofloxacin [From Levaquin] AdvReac See Verified 04/04/18 10:54 Comments pregabalin [From Lyrica] AdvReac See Verified 04/04/18 10:54 Comments Certification: Further, I certify that my clinical findings support that this patient is homebound (i.e. absences from home require considerable and taxing effort and are for medical reasons or [facility] or infrequently or short duration when for other reasons) because: Homebound Reason: Patient requires assistance of a person or device to safely leave home Attestation: My signature below is to certify that this patient is under my care and that I, or nurse practitioner, or a physician's budget assistant working with me, has a [id number] encounter with this patient.
[2018-04-30] MEDS: cefTRIAXone 2,000 MG in Water for inj. (sterile) 20 ML 20 ML IVP SCH (11:25)
[2018-04-30] MEDS: rOPINIRole 1 MG TABLET PO SCH (20:13)
[2018-04-30] MEDS: Insulin DETEMIR 100 UNIT/ML X5UNITS SQ SCH (20:19)
[2018-04-30] MEDS: traZODone 50 MG TABLET PO PRN (23:29)
[2018-05-01] MEDS: metroNIDAZOLE 500 MG TABLET PO SCH (07:38)
[2018-05-01] MEDS: *HR* HYDROcodone/Acet 10/325 mg TABLET PO PRN (07:38)
[2018-05-01] MEDS: Aspirin 81 MG TAB.CHEW PO SCH (07:38)
[2018-05-01] MEDS: Insulin LISPRO 300 UNITS/3 ML VIAL SQ SCH ×2 (07:39→12:19)
--- NOTE | 2018-05-01 10:28 | Internal Med Progress Note ---
<Faisal Crowley - Last Filed: 05/01/18 15:35> Hospitalist Progress Note - Encounter Date of Encounter: 05/01/18 Time of Encounter: 09:05 - Subjective Interval History: Patient still feels great and is anxious to get discharged [facility]. - Exam Vitals: Temp Pulse Resp BP Pulse Ox 98.1 F 82 16 160/74 96 05/01/18 06:56 05/01/18 06:56 05/01/18 06:56 05/01/18 06:56 05/01/18 06:56 Exam: General: seated in bed, appears comfortable, no acute distress HEENT: Atraumatic, Pupils PERRLA with EOMI, clear conjunctiva, generally poor dentition Neck: soft, range of motion intact Cardio: regular rate and rhythm without murmur to auscultation Respiratory: CTA bilaterally, no wheezing or crackles Abdomen: Soft, nontender, non distended. Clean and dry dressing over site of abscess drainage. Extremities: No swelling or edema MSK: Good range of motion and strength throughout Neuro: alert and oriented x3, no focal deficiets. - Assessment and Plan (1) Liver abscess Status: Acute Assessment and Plan: Hepatic abscess s/p drainage Cultures with negative growth to date Plan: Continue abx with Rocephin and Flagyl per ID recommendations Will continue Rocephin and metronidazole for 2 weeks after discharge. Follow up in 2 weeks with ID, plan for 4 weeks of omnicef at that time. PICC is in place Patient will be ready for discharge today to home, once [facility] for [facility] treatment. (2) Acute kidney injury Status: Acute Assessment and Plan: Resolved, Ucr 1.04 Avoid nephrotoxic agents (3) Diabetes mellitus Status: Chronic Assessment and Plan: Hypoglycemia seems to have resolved with decrease in lantus Will return to home medication of lantus and sliding scale doses. (4) Elevated lactic acid level Status: Resolved Assessment and Plan: Secondary to hepatic abscess and bacteremia Resolved (5) Severe sepsis Status: Resolved Assessment and Plan: Secondary to bacteremia and hepatic abscess. Now resolved (6) DVT prophylaxis Status: Acute Assessment and Plan: Continue with Heparin SQ (7) Anemia Status: Acute Assessment and Plan: Appears to be stable. Likely due to iron deficiency will need follow up as outpatient - Time Spent with Patient Total time spent is greater than 50% in coordination of care (as documented) at patient's floor/unit and/or counseling patient: Internal Medicine: Result - Labs CBC & Chem 7: 04/30/18 05:49 04/30/18 05:49 - ABG Interpretation ABG results: PT/INR, D-dimer PT 13.2 Seconds (9.4-12.1) H 04/25/18 02:56 Consult Discharge Plan - Plan [facility]errals: [facility]Primary Care Provider[facility] - 05/07/18 10:15 am (Please follow up as schedule...) Prescriptions: cefTRIAXone [Rocephin] 2,000 mg IVPB DAILY 14 Days #14 vial RX: metroNIDAZOLE [Flagyl] 500 mg PO TID 14 Days #42 tablet <German Veliz - Last Filed: 05/01/18 17:34> Hospitalist Progress Note - Encounter Date of Encounter: 05/01/18 - Exam Vitals: Temp Pulse Resp BP Pulse Ox 98.1 F 97 16 136/71 95 05/01/18 11:18 05/01/18 11:18 05/01/18 11:18 05/01/18 11:18 05/01/18 11:18 - Assessment and Plan (1) Acute kidney injury Status: Acute (2) Diabetes mellitus Status: Chronic (3) Liver abscess Status: Acute (4) Elevated lactic acid level Status: Resolved (5) Severe sepsis Status: Resolved (6) DVT prophylaxis Status: Acute (7) Anemia Status: Acute - Time Spent with Patient Total time spent is greater than 50% in coordination of care (as documented) at patient's floor/unit and/or counseling patient: Internal Medicine: Result - Labs CBC & Chem 7: 04/30/18 05:49 04/30/18 05:49 - ABG Interpretation ABG results: PT/INR, D-dimer PT 13.2 Seconds (9.4-12.1) H 04/25/18 02:56 - Attending Attestation I have seen and examined this patient independently. I have discussed with resident physician Dr Crowley regarding the management plan. Agree with the documentation. __ <Faisal Crowley - Last Filed: 05/01/18 15:35> (3) Diabetes mellitus Qualifiers: Diabetes mellitus type: type 2 Diabetes mellitus long term care administrator insulin use: unspecified long term care administrator insulin use status Diabetes mellitus complication status: with hyperglycemia Qualified Code(s): E11.65 - Type 2 diabetes mellitus with hyperglycemia (7) Anemia Qualifiers: Other causes of anemia: chronic disease, other Qualified Code(s): D63.8 - Anemia in other chronic diseases classified elsewhere <German Veliz - Last Filed: 05/01/18 17:34> (2) Diabetes mellitus Qualifiers: Diabetes mellitus type: type 2 Diabetes mellitus long term care administrator insulin use: u nspecified long term care administrator insulin use status Diabetes mellitus complication status: with hyperglycemia Qualified Code(s): E11.65 - Type 2 diabetes mellitus with hyperglycemia (7) Anemia Qualifiers: Other causes of anemia: chronic disease, other Qualified Code(s): D63.8 - Anemia in other chronic diseases classified elsewhere
[2018-05-01 11:20] VITALS: BP 136/71
[2018-05-01] MEDS: cefTRIAXone 2,000 MG in Water for inj. (sterile) 20 ML 20 ML IVP SCH (12:18)
--- NOTE | 2018-05-01 13:34 | Infectious Disease Progress No ---
Date of Encounter: 05/01/18 Time of Encounter: 08:30 - Assessment and Plan (1) Severe sepsis Status: Resolved Severe sepsis/borderline septic shock criteria met on admission on 04/25 - 4 SIRS criteria plus lactic acid 4.6 - WBC 15.2, T101.2, HR105, RR16 (04/25) Likely secondary to liver abscess and bacteremia. - Liver abscess possibly from contiguous infection - IR consulted and drained liver abscess on 04/25. - Abscess aspiration analysis - final report pending - Preliminary report shows WBC > 25, and positive for G + cocci, culture shows no growth at 24 hours - Final report pending The pt does not currently meet sirs/sepsis criteria. - WBC 8.7, T98.1, HR82, RR16 (today 05/01) - WBC 8.7, T97.5, HR85, RR17 (04/30) - WBC 10.4, T98.7, HR87, RR17 (04/27) - WBC 9.7, T98.7, HR72, RR17 (04/26) Today 05/01 BUN 15 (on 04/30 BUN 15 ), Cr 1.04 (on 04/30 Cr 1.04) Creatinine Clearance 62 ml/min Beta-hydroxybutryic acid 0.13 (04/25) Troponin I 0.03 (04/25) Blood culture 04/04: (+) Klebsiella pneumoniae, (+) Streptococcus anginosis. Klebsiella pneumoniae: pansensitive with exception of ampicillin. Streptoccous anginosis: pansensitive Blood culture 04/05: No growth Blood culture 04/25: No growth (final) Liver abscess aspiration analysis: culture showed no growth, additional testing performed (anaerobic culture) Acid fast bacilli 04/25: AFB smear Final - no acid fast bacilli observed, AFB culture - mycobacterial cultures are incubated for 8 weeks Anaerobic culture 04/25: Final - no anaerobes observed CT abd/pelvis 04/04: Amorphous low attentuation areas in liver are indeterminate. CT abd/pelvis 04/25: Redemonstration of cluster of low-attenuation cystic lesions in liver adjacent to gallbladder fossa. 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 Antibiotics received: - Ceftriaxone day 3 (started on 04/28) - Metronidazole day 4 (started on 04/27) - Cefepime DC 04/27 - Metronidazole IV DC 04/27 - Vancomycin DC 04/27 Recommendations: - Cultures came back negative for growth - Powerglide placed on right arm - Rocephin 2g IV q24 hrs for 2 weeks (started on 04/28) - Metronidazole 500 mg PO q8hrs for 2 weeks (started on 04/27) - Omnicef for 2-4 weeks followed by 2 weeks of Rocephin + Metronidazole (re assess when pt is seen in clinic in 2-3 weeks) - Follow up with Infectious disease in clinic in 2-3 weeks (2) Liver abscess Status: Acute Pt presented on 04/04 with blood cultures positive for Klebsiella pneumoniae and Streptoccous anginosis. CT abd/pelvis on 04/04 showed amorphous low attentuation areas in the liver. The patient was found to have a liver abscess. At that point the patient and his declined further treatment and were discharged home. The pt presented to the ED again on 04/[address] abd/pelvis showed redemonstration of cluster of low-attenuation cystic lesion in the liver adjacent to the gallbladder fossa. The patient has a liver abscess due to contiguous spread from adjacent structures and likely leading cause of severe sepsis/septic shock. IR was consulted and performed drainage of CT guided liver abscess drainage and drain placement on 04/25. 30 mL of purulent material was drained and sent for a nalysis. Drain removed. - Culture showed no growth, additional testing needed (anaerobic culture) - Final Anaerobic culture showed no growth Creatinine clearance 62 ml/min Antibiotics received: - Ceftriaxone day 3 (started on 04/28) - Metronidazole day 4 (started on 04/27) - Cefepime DC 04/27 - Metronidazole IV DC 04/27 - Vancomycin DC 04/27 Recommendations: - Cultures came back negative for growth - Powerglide placed on right arm - Rocephin 2g IV q24 hrs for 2 weeks (started on 04/28) - Metronidazole 500 mg PO q8hrs for 2 weeks (started on 04/27) - Omnicef for 2-4 weeks followed by 2 weeks of Rocephin + Metronidazole (reassess when pt is seen in clinic in 2-3 weeks) - Follow up with Infectious disease in clinic in 2-3 weeks (3) H/O bacteremia Status: Resolved Blood culture 04/04: (+) Klebsiella pneumoniae, (+) Streptococcus anginosis. Klebsiella pneumoniae: pansensitive with exception of ampicillin. Streptoccous anginosis: pansensitive Blood culture 04/05: No growth Repeat Blood culture 04/25: No growth Bacteremia likely secondary to liver abscess. Liver aspirate analysis: preliminary analysis cultured no growth, additional anaerobic testing needed also showed no growth (4) Acute on chronic renal failure Status: Suspected Likely secondary to severe sepsis Creatinine improved to 1.04 (Cr on 04/30 also 1.04) Creatinine clearance 62 ml/min (on 04/30 Cl Cl 62 ml/min) Monitor kidney function closely to dose adjust antibiotics based on creatinine clearance Qualifiers: Acute renal failure type: with acute tubular necrosis Chronic kidney disease stage: stage 4 (severe) Qualified Code(s): N17.0 - Acute kidney failure with tubular necrosis; N18.4 - Chronic kidney disease, stage 4 (severe) (5) Allergy to antibiotic Status: Acute Allergies to: Amoxicillin - exact reaction not known. Tolerated cephalosporin Levofloxacin - exact reaction unknown The patient is not aware if he has allergies to these medications or adverse reactions to them. (6) Diabetes mellitus Status: Chronic Pt has type 2 DM and presented to ED with elevated glucose due to not taking his medications. - Glucose 225 today 04/27 - Glucose 243 04/26 (532 on admission 04/25) - Manage appropriately Qualifiers: Diabetes mellitus type: type 2 Diabetes mellitus long term care social worker insulin use: unspecified detention insulin use status Diabetes mellitus complication status: with hyperglycemia Qualified Code(s): E11.65 - Type 2 diabetes mellitus with hyperglycemia - Subjective Interval history: The patient was seen at bedside resting comfortably. The pt seems to be improved clinically. He did not have any acute changes overnight. He has decreased tenderness over surgical site and DAT drain has been removed. No erythema or swelling or signs of infection noted around incision site. Pt does denies SOB, CP, abdominal pain, fever, chills, sore throat. Pt is hemodynamically stable and ready for discharge. Infect Dis PN-Objective Data - Labs CBC & Chem 7: 04/30/18 05:49 04/30/18 05:49 Labs: Laboratory Results - last 24 hr 04/30/18 04/30/18 15:47 19:54 POC Glucose 330 H 329 H Cultures: Cultures 04/25/18 12:17 Body Fluid Culture - Final Other-Specify in Comments 04/25/18 12:17 Anaerobic Culture - Final Other-Specify in Comments No anaerobes were recovered. 04/25/18 02:56 Blood Culture - Final Peripheral Venipuncture No growth. Final report. 04/25/18 03:47 Blood Culture - Final Peripheral Venipuncture No growth. Final report. 04/25/18 12:17 Acid Fast Stain - Final Other-Specify in Comments Serology 04/25/18 Range/Units 03:00 Urine Color Yellow (Yellow) Urine Clarity Clear (Clear) Urine pH 7.0 (5.0-8.0) pH Units Ur Specific [place] 1.021 (1.010-1.025) Urine Protein Trace (Neg-Trace) mg/dL Urine Glucose (UA) >=1000 H (Normal) mg/dL Urine Ketones Negative (Negative) mg/dL Urine Blood Negative (Negative) Urine Nitrite Negative (Negative) Urine Bilirubin Negative (Negative) Urine Urobilinogen Normal (Normal) mg/dL Ur Leukocyte Esterase Negative (Negative) Urine Microscopic RBC 0-3 (0-3) per hpf Ur Squamous Epith Cells None Seen (None-Few) per lpf Urine Bacteria None Seen (None-Few) per hpf Hyaline Casts None Seen (None-Few) per lpf Ur Culture Indicated? NO (NO) Exam - Constitutional Vitals: Temp Pulse Resp BP Pulse Ox 98.1 F 97 16 136/71 95 05/01/18 11:18 05/01/18 11:18 05/01/18 11:18 05/01/18 11:18 05/01/18 11:18 Exam: - Constitutional Constitutional: Present: fatigue. Absent: chills, fever(s) - Cardiovascular Cardiovascular: Absent: chest pain, palpitations - Respiratory Respiratory: Absent: dyspnea Additional comments: - No SOB - Gastrointestinal Gastrointestinal: Absent: abdominal pain, change in bowel habits, hematochezia - Genitourinary Additional comments: - No dysuria - No hematuria - Musculoskeletal Musculoskeletal: Absent: arthralgias Additional comments: - No muscle weakness - Integumentary Additional comments: - No skin changes - No skin lesions - Neurological Neurological: Absent: focal weakness, numbness, tingling, weakness - Psychiatric Psychiatric: Absent: anxiety, depression - Additional findings Additional findings: General: A&Ox3, alert, oriented, cooperative, no acute distress Constitutional: No fever, chills, fatigue HEENT: atraumatic, normocephalic, normal inspection, absent conjunctival injection Neck: No lymphadenopathy, tendernesss Respiratory: CTAB, absent accessory muscle use, decreased breath sounds, rales, wheezes Cardiovascular: RRR, S1+, S2+, no rubs, murmurs, gallops GI: bowel sounds present, decreased tenderness over abscess incision site Extremities: 2+ pulses UE, diminished pulses LE Neurological: Alert, no focal deficits Psychiatric: normal mood Skin: normal color, no skin lesions or rashes Consult Discharge Plan - Plan [facility]errals: [facility]Primary Care Provider[facility] - 05/07/18 10:15 am (Please follow up as schedule...) Prescriptions: cefTRIAXone [Rocephin] 2,000 mg IVPB DAILY 14 Days #14 vial RX: metroNIDAZOLE [Flagyl] 500 mg PO TID 14 Days #42 tablet - Attending Attestation I examined this patient and my medical decision-making was reviewed with the Resident Physician. I agree with the documented findings, disposition and tr eatment plan as described except to the extent set forth below.
== END 2018-05-01 12:36 | disposition home health service (06) | DRG 871 ==
LOC: EMEROOARM 02:42 → 2ANU 02:42 → SUATTDRO 06:10 → 2ANU 06:42
PROVIDERS: ADMIT Family Medicine; ATTEND Internal Medicine
PROC: IRDRAIN (2018-04-25 13:00)

== ENCOUNTER 2022-01-26 16:11 | Inpatient (IN) ==
[2022-01-26] MEDS ORDERED: Iopamidol - 370 500 ML MLS IVP ONE (19:14)
[2022-01-26 19:45] LABS: Basophils % 0.5 %; Eosinophils % 0.3 %; Hematocrit 27.8 % (37.5-50.1); Hemoglobin 8.5 g/dL (12.9-16.9); Immature Granulocytes % 1.2 % (0-4); Lymphocytes # 0.5 K/mcL (0.6-4.6); Lymphocytes % 6.5 %; Mean Corpuscular HGB Conc 30.6 g/dL (31.6-35.5); Mean Corpuscular Hemoglobin 29.6 pg (28.0-33.3); Mean Corpuscular Volume 96.9 fL (83.0-100.0); Mean Platelet Volume 12.7 fL (9.4-12.4); Monocytes # 0.7 K/mcL (0.0-1.3); Monocytes % 8.8 %; Neutrophils # 6.4 K/mcL (1.6-8.9); Platelet Count 327 K/mcL (140-400); Red Blood Count 2.87 M/mcL (4.19-5.50); Red Cell Distribution Width 15.1 % (11.5-14.5); Segmented Neutrophils % 82.7 %; White Blood Count 7.7 K/mcL (4.3-11.1)
[2022-01-26 19:52] LABS: INR 1.2; Prothrombin Time 13.5 Seconds (9.4-12.1)
[2022-01-26 19:54] LABS: Activated Partial Thrombo Time 33.2 Seconds (26.0-36.0)
[2022-01-26 21:17] LABS: Alanine Aminotransferase 78 Units/L (7-52); Albumin 2.8 g/dL (3.5-5.7); Albumin/Globulin Ratio 0.8 (1.1-2.2); Alkaline Phosphatase > 1500 Units/L (34-104); Amylase 29 Units/L (29-103); Aspartate Amino Transferase 158 Units/L (13-39); BUN/Creatinine Ratio 31 (6-26); Bilirubin,Direct 4.2 mg/dL (0.0-0.2); Bilirubin,Indirect 3.5 mg/dL (0.0-1.0); Bilirubin,Total 7.7 mg/dL (0.3-1.0); Blood Urea Nitrogen 49 mg/dL (8-23); Calcium 8.7 mg/dL (8.6-10.3); Carbon Dioxide 32 mEq/L (23-29); Chloride 84 mEq/L (98-107); Globulin 3.4 g/dL (2.4-3.5); Glucose 334 mg/dL (70-105); Lipase 5 Units/L (11-82); Osmolality,Calculated 292 (280-300); Sodium 128 mEq/L (136-145); Total Protein 6.2 g/dL (6.4-8.9)
[2022-01-26 23:34] LABS: Bilirubin,Urine Negative (Negative); Blood,Urine Negative (Negative); Clarity,Urine Clear (Clear); Color,Urine Yellow (Yellow); Glucose,Urine (UA) >=1000 mg/dL (Normal); Ketones,Urine Trace mg/dL (Negative); Leukocyte Esterase,Urine Negative (Negative); Nitrite,Urine Negative (Negative); Protein,Urine Trace mg/dL (Neg-Trace); RBC,Urine 0-3 per hpf (0-3); Specific Gravity,Urine 1.014 (1.010-1.025); WBC,Urine 0-3 per hpf (0-3)
[2022-01-27] MEDS ORDERED: 0.9 % Sodium Chloride 1,000 ML IV ONE (01:16)
[2022-01-27] MEDS ORDERED: MetroNIDAZOLE 500 MG/100 ML 500 MG/100 ML BAG IVPB ONE (01:26)
[2022-01-27 01:27] LABS: Magnesium 1.8 mg/dL (1.6-2.6)
[2022-01-27] MEDS ORDERED: levoFLOXacin 750 MG/150 ML 750 MG/150 ML BAG IVPB ONE (01:28)
[2022-01-27] MEDS ORDERED: Melatonin 3 MG TABLET PO PRN (02:08)
[2022-01-27] MEDS ORDERED: Naloxone 0.4 MG/ML INJ IVP PRN (02:08)
[2022-01-27] MEDS ORDERED: Ondansetron 4 MG/2 ML VIAL IVP PRN ×2 (02:08→13:37)
[2022-01-27] MEDS ORDERED: D5% in Water 1,000 ML IVC PRN (02:11)
[2022-01-27] MEDS ORDERED: Dextrose Gel 15 GM/37.5 ML TUBE PO PRN ×2 (02:11)
[2022-01-27] MEDS ORDERED: *HR* Dextrose 50 % in Water (Syg) 50 ML SYRINGE IVP PRN (02:11)
[2022-01-27 03:58] LABS: Hepatitis B Surface Antigen Nonreactive (Nonreactive)
[2022-01-27 04:28] LABS: Hepatitis B Core IgM Nonreactive (Nonreactive)
[2022-01-27 04:29] LABS: Hepatitis A Antibody IgM Nonreactive (Nonreactive); Hepatitis C Virus Antibody Nonreactive (Nonreactive)
[2022-01-27] MEDS: Insulin LISPRO 300 UNITS/3 ML VIAL SUBQ SCH ×3 (07:01→18:34)
[2022-01-27 08:09] LABS: Basophils % 0.5 %; Eosinophils % 0.3 %; Hematocrit 27.2 % (37.5-50.1); Hemoglobin 8.1 g/dL (12.9-16.9); Immature Granulocytes % 0.6 % (0-4); Lymphocytes # 0.4 K/mcL (0.6-4.6); Lymphocytes % 6.3 %; Mean Corpuscular HGB Conc 29.8 g/dL (31.6-35.5); Mean Corpuscular Hemoglobin 29.6 pg (28.0-33.3); Mean Corpuscular Volume 99.3 fL (83.0-100.0); Mean Platelet Volume 12.2 fL (9.4-12.4); Monocytes # 0.3 K/mcL (0.0-1.3); Neutrophils # 5.8 K/mcL (1.6-8.9); Platelet Count 327 K/mcL (140-400); Red Blood Count 2.74 M/mcL (4.19-5.50); Red Cell Distribution Width 15.3 % (11.5-14.5); Segmented Neutrophils % 88.3 %; White Blood Count 6.5 K/mcL (4.3-11.1)
[2022-01-27 08:16] LABS: INR 1.1; Prothrombin Time 12.6 Seconds (9.4-12.1)
[2022-01-27 08:30] LABS: Alanine Aminotransferase 76 Units/L (7-52); Albumin 2.9 g/dL (3.5-5.7); Albumin/Globulin Ratio 0.8 (1.1-2.2); Alkaline Phosphatase > 1500 Units/L (34-104); Aspartate Amino Transferase 135 Units/L (13-39); BUN/Creatinine Ratio 29 (6-26); Bilirubin,Direct 3.9 mg/dL (0.0-0.2); Bilirubin,Indirect 3.5 mg/dL (0.0-1.0); Bilirubin,Total 7.4 mg/dL (0.3-1.0); Blood Urea Nitrogen 41 mg/dL (8-23); Carbon Dioxide 31 mEq/L (23-29); Chloride 88 mEq/L (98-107); Globulin 3.8 g/dL (2.4-3.5); Glucose 286 mg/dL (70-105); Magnesium 1.7 mg/dL (1.6-2.6); Osmolality,Calculated 293 (280-300); Potassium 2.7 mEq/L (3.5-5.1); Sodium 131 mEq/L (136-145); Total Protein 6.7 g/dL (6.4-8.9)
[2022-01-27] MEDS ORDERED: *HR* FentaNYL (PF) 100 MCG/2 ML VIAL ONE ×2 (14:21→14:52)
[2022-01-27] MEDS ORDERED: Ondansetron 4 MG/2 ML VIAL ONE (14:21)
[2022-01-27] MEDS ORDERED: *HR* Propofol 200 MG/20 ML VIAL IVP ONE (14:21)
[2022-01-27] MEDS ORDERED: Lidocaine HCL 4 ML Topical Solution (Laryng-O-Jet Kit Sterile Pak) TP ONE (14:21)
[2022-01-27] MEDS ORDERED: Lidocaine -MPF 2% 5 ML VIAL ONE (14:21)
[2022-01-27] MEDS ORDERED: *HR* Succinylcholine 200 MG/10 ML VIAL IVP ONE (14:21)
[2022-01-27] MEDS ORDERED: Aspirin 81 MG TAB.CHEW PO PRN (14:57)
[2022-01-27] MEDS ORDERED: Fluticasone Propionate Nasal 50 MCG/SPRAY BOTTLE NS PRN (14:57)
[2022-01-27] MEDS ORDERED: Indomethacin 50 MG SUPP.RECT RC ONE (17:31)
[2022-01-27] MEDS: *HR* OxyCODONE/APAP 10/325 TABLET PO SCH ×2 (17:37→21:57)
[2022-01-27] MEDS: cefTRIAXone 1,000 MG in 0.9 % Sodium Chloride 10 ML IVP SCH (18:31)
[2022-01-27] MEDS: MetroNIDAZOLE 500 MG/100 ML 500 MG/100 ML BAG IVPB SCH (18:33)
[2022-01-27] MEDS ORDERED: Patient Taking Own Medication 1 EACH OP SCH (21:00)
[2022-01-27] MEDS: rOPINIRole 1 MG TABLET PO SCH (21:56)
[2022-01-27] MEDS ORDERED: Gadolinium Contrast Agent (WT Based) IV PRN (22:01)
[2022-01-28] MEDS: MetroNIDAZOLE 500 MG/100 ML 500 MG/100 ML BAG IVPB SCH ×2 (01:44→10:52)
[2022-01-28] MEDS: Insulin LISPRO 300 UNITS/3 ML VIAL SUBQ SCH ×3 (01:49→12:01)
[2022-01-28 03:03] VITALS: O2SAT 98
[2022-01-28 05:44] LABS: Basophils % 0.1 %; Hemoglobin 7.8 g/dL (12.9-16.9)
[2022-01-28 05:46] LABS: Hematocrit 27.4 % (37.5-50.1); Immature Granulocytes % 0.8 % (0-4); Lymphocytes # 0.3 K/mcL (0.6-4.6); Lymphocytes % 3.7 %; Mean Corpuscular HGB Conc 28.5 g/dL (31.6-35.5); Mean Corpuscular Hemoglobin 29.7 pg (28.0-33.3); Mean Corpuscular Volume 104.2 fL (83.0-100.0); Mean Platelet Volume 12.5 fL (9.4-12.4); Monocytes # 0.4 K/mcL (0.0-1.3); Monocytes % 3.9 %; Neutrophils # 8.1 K/mcL (1.6-8.9); Platelet Count 292 K/mcL (140-400); Red Blood Count 2.63 M/mcL (4.19-5.50); Red Cell Distribution Width 15.5 % (11.5-14.5); Segmented Neutrophils % 91.5 %; White Blood Count 8.9 K/mcL (4.3-11.1)
[2022-01-28 05:49] LABS: INR 1.2
[2022-01-28 06:05] LABS: Alanine Aminotransferase 54 Units/L (7-52); Albumin 2.7 g/dL (3.5-5.7); Albumin/Globulin Ratio 0.8 (1.1-2.2); Alkaline Phosphatase > 1500 Units/L (34-104); Aspartate Amino Transferase 62 Units/L (13-39); BUN/Creatinine Ratio 32 (6-26); Bilirubin,Direct 2.5 mg/dL (0.0-0.2); Bilirubin,Indirect 2.3 mg/dL (0.0-1.0); Bilirubin,Total 4.8 mg/dL (0.3-1.0); Blood Urea Nitrogen 38 mg/dL (8-23); Calcium 8.6 mg/dL (8.6-10.3); Carbon Dioxide 23 mEq/L (23-29); Chloride 95 mEq/L (98-107); Globulin 3.4 g/dL (2.4-3.5); Glucose 374 mg/dL (70-105); Osmolality,Calculated 306 (280-300); Potassium 4.2 mEq/L (3.5-5.1); Sodium 136 mEq/L (136-145); Total Protein 6.1 g/dL (6.4-8.9)
[2022-01-28 06:09] LABS: Platelet Estimate Normal (Normal); Poikilocytosis 1+ (Not Present)
[2022-01-28] MEDS ORDERED: amLODIPine 5 MG TABLET PO SCH (09:00)
[2022-01-28] MEDS: rOPINIRole 1 MG TABLET PO SCH (10:44)
[2022-01-28] MEDS: cefTRIAXone 1,000 MG in 0.9 % Sodium Chloride 10 ML IVP SCH (10:45)
[2022-01-28] MEDS: *HR* OxyCODONE/APAP 10/325 TABLET PO SCH (10:49)
[2022-01-28 11:55] VITALS: BP 126/55; PULSE 71; TEMP 97.5
[2022-01-28] MEDS ORDERED: Artificial Tears SOLN 15 ML BOTTLE OP SCH (15:00)
[2022-01-28] MEDS ORDERED: Insulin LISPRO 300 UNITS/3 ML VIAL SUBQ SCH (21:00)
== END 2022-01-28 12:35 | disposition left against medical advice (07) | DRG 446 ==
LOC: EMEROOARM 16:11 → SUATTDRO 01-27 06:25 → 3ANU 01-27 06:25
PROVIDERS: ADMIT Internal Medicine; ATTEND Family Medicine
PROC: ENDOEUS (2022-01-27 15:00)